=== PATIENT | female | born 1970 | race Caucasian/White ===

== ENCOUNTER 2017-04-05 14:41 | Inpatient (IN) | payer OTHER ==
[~2017-04-05] VITALS: Ht 162.6 cm; Wt 95.9 kg
[~2017-04-05 14:41] MED LIST: ACTOS30 MG PO; Aspirin Chewable PO; Augmentin PO; Dilaudid PO; GLIPIZIDE PO; Glucophage PO; JANUVIA100 MG PO; LANTUS 3 M100 UNITS/ SC; Lasix PO; NEURONTIN PO; PLAVIX75 MG PO; TEGretol PO; TORADOL10 MG PO; Tenormin PO; Xanax PO; Zestril,Prinivil PO; Zocor PO; Zoloft PO
[2017-04-05 15:20] VITALS: BP 169/63
[2017-04-05 15:30] LABS: HEMATOCRIT 31.6 % (36.0-46.0); MCH 27.4 PG (29.0-34.0); MCHC 30.7 G/DL (30.0-36.0); MCV 89.3 FL (83-99); MEAN PLAT.VOLUME 11.1 uM^3 (9.5-12.4); PLATELET COUNT 350 K/uL (156-360); RBC DIS.WIDTH-CV 12.7 % (11.8-14.6); RBC DIS.WIDTH-SD 41.2 % (39-53); RED BLOOD COUNT 3.54 M/uL (3.80-5.20); WHITE BLOOD COUNT 14.7 K/uL (4.1-10.2)
[2017-04-05 16:13] LABS: ANION GAP 8 MEQ/L (2-14); CHLORIDE 104 MEQ/L (99-109); GFR ESTIMATE (CALCULATED) 32 mL/min/; POTASSIUM 5.7 MEQ/L (3.7-5.4); SAMPLE HEMOLYSIS CHECK 0; SAMPLE ICTERIC CHECK 0; SAMPLE LIPEMIA CHECK 0; SODIUM 135 MEQ/L (136-147); UREA NITROGEN (BUN) 45 mg/dL (9-23)
[2017-04-05 16:14] LABS: GLUCOSE 400 mg/dL (70-99)
[2017-04-05 18:52] LABS: POINT-OF-CARE METER ID UU13113655; POINT-OF-CARE USER ID ENVKLS06
[2017-04-05 20:33] LABS: POINT-OF-CARE METER ID UU13113675
[2017-04-05 20:59] LABS: HEMATOCRIT 31.9 % (36.0-46.0); MCH 27.8 PG (29.0-34.0); MCHC 30.7 G/DL (30.0-36.0); MCV 90.4 FL (83-99); MEAN PLAT.VOLUME 10.7 uM^3 (9.5-12.4); PLATELET COUNT 370 K/uL (156-360); RBC DIS.WIDTH-CV 12.8 % (11.8-14.6); RBC DIS.WIDTH-SD 42.1 % (39-53); RED BLOOD COUNT 3.53 M/uL (3.80-5.20)
[2017-04-05 21:40] LABS: TROP-I INTERPRETATION NEGATIVE; TROPONIN-I 0.01 ng/mL (0.0-0.30)
[2017-04-05 21:52] LABS: POINT-OF-CARE METER ID UU13113675
[2017-04-05 22:00] VITALS: BP 129/75
[2017-04-05 22:00] LABS: ANION GAP 8 MEQ/L (2-14); CHLORIDE 106 MEQ/L (99-109); GFR ESTIMATE (CALCULATED) 28 mL/min/; GLUCOSE 318 mg/dL (70-99); POTASSIUM 7.2 MEQ/L (3.7-5.4); SAMPLE HEMOLYSIS CHECK 1; SAMPLE ICTERIC CHECK 0; SAMPLE LIPEMIA CHECK 0; SODIUM 133 MEQ/L (136-147); UREA NITROGEN (BUN) 44 mg/dL (9-23)
[2017-04-05 22:38] VITALS: BP 110/54
[2017-04-05 23:00] VITALS: BP 96/71
[2017-04-05 23:28] LABS: POTASSIUM 7.1 mEq/L (3.7-5.4)
[2017-04-05 23:35] LABS: POINT-OF-CARE METER ID UU13113803
[2017-04-05 23:52] LABS: METH RESISTANT S AUREUS PCR NEGATIVE (NEGATIVE)
[2017-04-05 23:54] LABS: PROBE CHECK PASS; SPECIMEN PROCESSING CONTROL PASS
[2017-04-05 23:54] LABS: INTER. NORMALIZED RATIO 1.1; PROTHROMBIN TIME 11.4 (9.2-11.2)
[2017-04-05 23:56] LABS: PTT > 150.0 (25-32)
[2017-04-06] VITALS (22 sets, daily range): BP systolic 84–152; BP diastolic 40–68
[2017-04-06 01:41] LABS: POINT-OF-CARE METER ID UU14162636
[2017-04-06 02:41] LABS: POINT-OF-CARE METER ID UU13113731
[2017-04-06 05:40] LABS: HEMATOCRIT 28.9 % (36.0-46.0); MCH 27.6 PG (29.0-34.0); MCHC 30.8 G/DL (30.0-36.0); MCV 89.8 FL (83-99); RBC DIS.WIDTH-CV 12.8 % (11.8-14.6); RBC DIS.WIDTH-SD 41.9 % (39-53); RED BLOOD COUNT 3.22 M/uL (3.80-5.20); WHITE BLOOD COUNT 12.6 K/uL (4.1-10.2)
[2017-04-06 05:59] LABS: TROP-I INTERPRETATION NEGATIVE; TROPONIN-I 0.03 ng/mL (0.0-0.30)
[2017-04-06 06:29] LABS: POINT-OF-CARE METER ID UU13113731
[2017-04-06 07:15] LABS: ANION GAP 8 MEQ/L (2-14); CHLORIDE 105 MEQ/L (99-109); GFR ESTIMATE (CALCULATED) 25 mL/min/; GLUCOSE 207 mg/dL (70-99); POTASSIUM 5.8 MEQ/L (3.7-5.4); SAMPLE HEMOLYSIS CHECK 0; SAMPLE ICTERIC CHECK 0; SAMPLE LIPEMIA CHECK 0; SODIUM 136 MEQ/L (136-147); UREA NITROGEN (BUN) 47 mg/dL (9-23)
[2017-04-06 08:06] LABS: PLAT.SUFFICIENCY ADEQUATE; PLATELET COUNT 282 K/uL (156-360)
[2017-04-06 14:18] LABS: UR CREATININE CONCENTRATION 123.4 MG/DL
[2017-04-06 18:56] LABS: ALKALINE PHOSPHATASE 64 IU/L (3-129); ANION GAP 11 MEQ/L (2-14); CHLORIDE 105 MEQ/L (99-109); GFR ESTIMATE (CALCULATED) 22 mL/min/; GLUCOSE 339 mg/dL (70-99); POTASSIUM 5.7 MEQ/L (3.7-5.4); SAMPLE HEMOLYSIS CHECK 0; SAMPLE ICTERIC CHECK 0; SAMPLE LIPEMIA CHECK 0; SODIUM 136 MEQ/L (136-147); TOTAL BILIRUBIN 0.4 MG/DL (0.0-1.0); UREA NITROGEN (BUN) 49 mg/dL (9-23)
[2017-04-06 22:49] LABS: POINT-OF-CARE METER ID UU14174217
[2017-04-07] VITALS (22 sets, daily range): BP systolic 114–173; BP diastolic 39–73
[2017-04-07 01:19] LABS: TROP-I INTERPRETATION POSITIVE; TROPONIN-I 0.72 ng/mL (0.0-0.30)
[2017-04-07 01:24] LABS: CHLORIDE 109 mEq/L (99-109); POTASSIUM 5.4 mEq/L (3.7-5.4); SODIUM 136 mEq/L (136-147)
[2017-04-07 01:26] LABS: GLUCOSE 302 mg/dL (70-99)
[2017-04-07 01:28] LABS: ANION GAP 11 MEQ/L (2-14)
[2017-04-07 01:30] LABS: GFR ESTIMATE (CALCULATED) 23 mL/min/
[2017-04-07 01:31] LABS: UREA NITROGEN (BUN) 47 mg/dL (9-23)
[2017-04-07 07:40] LABS: EOSINOPHIL (%) 2.8 % (0-5); EOSINOPHIL COUNT 0.5 K/uL (0-0.3); HEMATOCRIT 22.3 % (36.0-46.0); IMMATURE GRANULOCYTE COUNT 0.2 K/uL; INSTRUMENT ABS NEUTROPHIL CT 14.1 K/uL; LYMPHOCYTE COUNT 2.2 K/uL (1.0-2.8); MCH 28.2 PG (29.0-34.0); MCHC 30.9 G/DL (30.0-36.0); MEAN PLAT.VOLUME 11.2 uM^3 (9.5-12.4); MONOCYTE COUNT 1.9 K/uL (0-0.8); NEUTROPHIL (%) 74.5 % (45-76); NEUTROPHIL COUNT 14.1 K/uL (1.8-6.4); PLATELET COUNT 254 K/uL (156-360); RBC DIS.WIDTH-SD 43.2 % (39-53)
[2017-04-07 07:43] LABS: WHITE BLOOD COUNT 18.9 K/uL (4.1-10.2)
[2017-04-07 07:44] LABS: RED BLOOD COUNT 2.45 M/uL (3.80-5.20)
[2017-04-07 07:48] LABS: TROP-I INTERPRETATION POSITIVE; TROPONIN-I 1.19 ng/mL (0.0-0.30)
[2017-04-07 07:49] LABS: ANION GAP 9 MEQ/L (2-14); CHLORIDE 106 MEQ/L (99-109); GFR ESTIMATE (CALCULATED) 27 mL/min/; GLUCOSE 323 mg/dL (70-99); MAGNESIUM 1.4 mg/dl (1.3-2.7); SAMPLE HEMOLYSIS CHECK 0; SAMPLE ICTERIC CHECK 0; SAMPLE LIPEMIA CHECK 0; SODIUM 136 MEQ/L (136-147); UREA NITROGEN (BUN) 42 mg/dL (9-23)
[2017-04-07 11:33] LABS: POINT-OF-CARE METER ID UU13113731
[2017-04-07 15:06] LABS: HEMATOCRIT 25.4 % (36.0-46.0); MCHC 31.9 G/DL (30.0-36.0); MEAN PLAT.VOLUME 11.3 uM^3 (9.5-12.4); PLATELET COUNT 245 K/uL (156-360); RBC DIS.WIDTH-CV 13.3 % (11.8-14.6); RBC DIS.WIDTH-SD 43.9 % (39-53); RED BLOOD COUNT 2.79 M/uL (3.80-5.20); WHITE BLOOD COUNT 19.3 K/uL (4.1-10.2)
[2017-04-07 16:29] LABS: POINT-OF-CARE METER ID UU13113731
[2017-04-07 20:56] LABS: POINT-OF-CARE METER ID UU13113675
[2017-04-07 22:30] LABS: TROP-I INTERPRETATION POSITIVE; TROPONIN-I 3.46 ng/mL (0.0-0.30)
[2017-04-07 22:52] LABS: CK-MB 7.9 ng/mL (0.0-4.9)
[2017-04-07 22:54] LABS: CREATINE KINASE 1160 IU/L (1-294)
[2017-04-07 22:55] LABS: TOTAL CK 1160 IU/L (1-294)
[2017-04-08] VITALS (14 sets, daily range): BP systolic 119–173; BP diastolic 47–88
[2017-04-08 02:40] LABS: POINT-OF-CARE METER ID UU14174217
[2017-04-08 05:58] LABS: POINT-OF-CARE METER ID UU14174217
[2017-04-08 06:37] LABS: EOSINOPHIL (%) 1.4 % (0-5); EOSINOPHIL COUNT 0.2 K/uL (0-0.3); HEMATOCRIT 28.2 % (36.0-46.0); IMMATURE GRANULOCYTE (%) 0.3 % (0.0-0.7); IMMATURE GRANULOCYTE COUNT 0.1 K/uL; INSTRUMENT ABS NEUTROPHIL CT 12.7 K/uL; LYMPHOCYTE COUNT 1.6 K/uL (1.0-2.8); MCH 27.6 PG (29.0-34.0); MCHC 31.6 G/DL (30.0-36.0); MCV 87.6 FL (83-99); MEAN PLAT.VOLUME 11.4 uM^3 (9.5-12.4); MONOCYTE (%) 10.5 % (3-12); MONOCYTE COUNT 1.7 K/uL (0-0.8); NEUTROPHIL (%) 77.9 % (45-76); NEUTROPHIL COUNT 12.7 K/uL (1.8-6.4); PLATELET COUNT 210 K/uL (156-360); RBC DIS.WIDTH-CV 13.5 % (11.8-14.6); RBC DIS.WIDTH-SD 42.9 % (39-53); RED BLOOD COUNT 3.22 M/uL (3.80-5.20); WHITE BLOOD COUNT 16.4 K/uL (4.1-10.2)
[2017-04-08 06:57] LABS: ANION GAP 9 MEQ/L (2-14); CHLORIDE 106 MEQ/L (99-109); GLUCOSE 253 mg/dL (70-99); POTASSIUM 4.2 MEQ/L (3.7-5.4); SAMPLE HEMOLYSIS CHECK 0; SAMPLE ICTERIC CHECK 0; SAMPLE LIPEMIA CHECK 0; SODIUM 137 MEQ/L (136-147); UREA NITROGEN (BUN) 30 mg/dL (9-23)
[2017-04-08 06:58] LABS: GFR ESTIMATE (CALCULATED) 39 mL/min/; MAGNESIUM 1.7 mg/dl (1.3-2.7)
[2017-04-08 07:06] LABS: TROP-I INTERPRETATION POSITIVE
[2017-04-08 10:39] LABS: POINT-OF-CARE METER ID UU14162636
[2017-04-08 15:32] LABS: POINT-OF-CARE METER ID UU14162636
[2017-04-08 18:16] LABS: POINT-OF-CARE METER ID UU14162636
[2017-04-08 22:16] LABS: POINT-OF-CARE METER ID UU13113731
[2017-04-09] VITALS: BP 132/49
[2017-04-09 02:50] LABS: POINT-OF-CARE METER ID UU14174217
[2017-04-09 04:15] VITALS: BP 143/75
[2017-04-09 05:35] LABS: POINT-OF-CARE METER ID UU14174217
[2017-04-09 06:49] LABS: EOSINOPHIL COUNT 0.9 K/uL (0-0.3); HEMATOCRIT 24.5 % (36.0-46.0); IMMATURE GRANULOCYTE (%) 0.5 % (0.0-0.7); IMMATURE GRANULOCYTE COUNT 0.1 K/uL; INSTRUMENT ABS NEUTROPHIL CT 10.3 K/uL; LYMPHOCYTE COUNT 1.7 K/uL (1.0-2.8); MCH 29.1 PG (29.0-34.0); MCHC 32.7 G/DL (30.0-36.0); MCV 89.1 FL (83-99); MONOCYTE (%) 11.7 % (3-12); MONOCYTE COUNT 1.7 K/uL (0-0.8); NEUTROPHIL (%) 69.7 % (45-76); NEUTROPHIL COUNT 10.3 K/uL (1.8-6.4); PLATELET COUNT 215 K/uL (156-360); RBC DIS.WIDTH-CV 13.7 % (11.8-14.6); RBC DIS.WIDTH-SD 44.7 % (39-53); RED BLOOD COUNT 2.75 M/uL (3.80-5.20); WHITE BLOOD COUNT 14.7 K/uL (4.1-10.2)
[2017-04-09 07:14] LABS: ANION GAP 8 MEQ/L (2-14); CHLORIDE 107 MEQ/L (99-109); GFR ESTIMATE (CALCULATED) 56 mL/min/; GLUCOSE 196 mg/dL (70-99); MAGNESIUM 1.9 mg/dl (1.3-2.7); POTASSIUM 4.3 MEQ/L (3.7-5.4); SAMPLE HEMOLYSIS CHECK 0; SAMPLE ICTERIC CHECK 0; SAMPLE LIPEMIA CHECK 0; SODIUM 136 MEQ/L (136-147); UREA NITROGEN (BUN) 19 mg/dL (9-23)
[2017-04-09 09:34] VITALS: BP 130/65
[2017-04-09 13:12] VITALS: BP 174/71
[2017-04-09 16:27] VITALS: BP 137/61
[2017-04-09 23:26] VITALS: BP 145/63
[2017-04-10 03:59] VITALS: BP 140/65
[2017-04-10 07:30] LABS: BASOPHIL COUNT 0.1 K/uL (0-0.1); EOSINOPHIL (%) 10.5 % (0-5); EOSINOPHIL COUNT 1.4 K/uL (0-0.3); HEMATOCRIT 24.4 % (36.0-46.0); IMMATURE GRANULOCYTE (%) 0.4 % (0.0-0.7); IMMATURE GRANULOCYTE COUNT 0.1 K/uL; INSTRUMENT ABS NEUTROPHIL CT 8.2 K/uL; LYMPHOCYTE COUNT 2.6 K/uL (1.0-2.8); MCH 28.6 PG (29.0-34.0); MCHC 31.6 G/DL (30.0-36.0); MCV 90.7 FL (83-99); MONOCYTE (%) 10.1 % (3-12); MONOCYTE COUNT 1.4 K/uL (0-0.8); NEUTROPHIL (%) 59.5 % (45-76); NEUTROPHIL COUNT 8.2 K/uL (1.8-6.4); NRBC (%) 0.3 /100 WBC (0-0); PLATELET COUNT 240 K/uL (156-360); RBC DIS.WIDTH-CV 13.5 % (11.8-14.6); RBC DIS.WIDTH-SD 44.8 % (39-53); RED BLOOD COUNT 2.69 M/uL (3.80-5.20); WHITE BLOOD COUNT 13.7 K/uL (4.1-10.2)
[2017-04-10 07:57] LABS: ANION GAP 8 MEQ/L (2-14); CHLORIDE 105 MEQ/L (99-109); GFR ESTIMATE (CALCULATED) 51 mL/min/; GLUCOSE 231 mg/dL (70-99); MAGNESIUM 1.9 mg/dl (1.3-2.7); POTASSIUM 4.5 MEQ/L (3.7-5.4); SAMPLE HEMOLYSIS CHECK 0; SAMPLE ICTERIC CHECK 0; SAMPLE LIPEMIA CHECK 0; SODIUM 134 MEQ/L (136-147); UREA NITROGEN (BUN) 21 mg/dL (9-23)
[2017-04-10 08:27] VITALS: BP 152/65
[2017-04-10 11:24] VITALS: BP 161/70
[2017-04-10 16:56] VITALS: BP 153/68
[2017-04-10 18:58] VITALS: BP 172/69
[2017-04-10 21:01] LABS: POINT-OF-CARE METER ID UU14174216
[2017-04-10 22:33] VITALS: BP 138/62
[2017-04-11] VITALS (7 sets, daily range): BP systolic 139–179; BP diastolic 62–83
[2017-04-11 06:12] LABS: BASOPHIL COUNT 0.1 K/uL (0-0.1); EOSINOPHIL (%) 3.5 % (0-5); EOSINOPHIL COUNT 0.4 K/uL (0-0.3); HEMATOCRIT 24.3 % (36.0-46.0); IMMATURE GRANULOCYTE (%) 0.6 % (0.0-0.7); IMMATURE GRANULOCYTE COUNT 0.1 K/uL; INSTRUMENT ABS NEUTROPHIL CT 8.6 K/uL; LYMPHOCYTE COUNT 1.5 K/uL (1.0-2.8); MCH 28.1 PG (29.0-34.0); MCHC 31.7 G/DL (30.0-36.0); MCV 88.7 FL (83-99); MEAN PLAT.VOLUME 11.7 uM^3 (9.5-12.4); MONOCYTE (%) 14.5 % (3-12); MONOCYTE COUNT 1.8 K/uL (0-0.8); NEUTROPHIL (%) 69.2 % (45-76); NEUTROPHIL COUNT 8.6 K/uL (1.8-6.4); NRBC (%) 0.4 /100 WBC (0-0); PLATELET COUNT 254 K/uL (156-360); RBC DIS.WIDTH-CV 13.3 % (11.8-14.6); RBC DIS.WIDTH-SD 43.4 % (39-53); RED BLOOD COUNT 2.74 M/uL (3.80-5.20); WHITE BLOOD COUNT 12.5 K/uL (4.1-10.2)
[2017-04-11 06:37] LABS: ANION GAP 11 MEQ/L (2-14); CHLORIDE 104 MEQ/L (99-109); GFR ESTIMATE (CALCULATED) 56 mL/min/; GLUCOSE 215 mg/dL (70-99); MAGNESIUM 1.8 mg/dl (1.3-2.7); POTASSIUM 4.5 MEQ/L (3.7-5.4); SAMPLE HEMOLYSIS CHECK 0; SAMPLE ICTERIC CHECK 0; SAMPLE LIPEMIA CHECK 0; SODIUM 134 MEQ/L (136-147); UREA NITROGEN (BUN) 20 mg/dL (9-23)
[2017-04-11 10:12] LABS: TROP-I INTERPRETATION POSITIVE; TROPONIN-I 0.85 ng/mL (0.0-0.30)
[2017-04-11 11:26] LABS: POINT-OF-CARE METER ID UU13113781
[2017-04-11 14:42] LABS: POINT-OF-CARE METER ID UU13113675
[2017-04-11 16:59] LABS: HEMATOCRIT 25.1 % (36.0-46.0); MCH 28.3 PG (29.0-34.0); MCHC 31.5 G/DL (30.0-36.0); MEAN PLAT.VOLUME 11.7 uM^3 (9.5-12.4); NRBC (%) 0.3 /100 WBC (0-0); PLATELET COUNT 278 K/uL (156-360); RBC DIS.WIDTH-CV 13.2 % (11.8-14.6); RBC DIS.WIDTH-SD 43.7 % (39-53); RED BLOOD COUNT 2.79 M/uL (3.80-5.20); WHITE BLOOD COUNT 12.6 K/uL (4.1-10.2)
[2017-04-11 17:22] LABS: TROP-I INTERPRETATION INDETERMINATE
[2017-04-11 17:28] LABS: EOSINOPHIL (%) 1.2 % (0-5); EOSINOPHIL COUNT 0.2 K/uL (0-0.3); IMMATURE GRANULOCYTE (%) 0.8 % (0.0-0.7); IMMATURE GRANULOCYTE COUNT 0.1 K/uL; INSTRUMENT ABS NEUTROPHIL CT 9.2 K/uL; LYMPHOCYTE COUNT 1.2 K/uL (1.0-2.8); MONOCYTE (%) 14.9 % (3-12); MONOCYTE COUNT 1.9 K/uL (0-0.8); NEUTROPHIL (%) 73.2 % (45-76); NEUTROPHIL COUNT 9.2 K/uL (1.8-6.4)
[2017-04-11 19:50] LABS: TROP-I INTERPRETATION POSITIVE; TROPONIN-I 0.64 ng/mL (0.0-0.30)
[2017-04-12 03:00] VITALS: BP 145/67
[2017-04-12 06:42] LABS: TROP-I INTERPRETATION INDETERMINATE; TROPONIN-I 0.57 ng/mL (0.0-0.30)
[2017-04-12 06:48] LABS: BASOPHIL COUNT 0.1 K/uL (0-0.1); EOSINOPHIL (%) 3.4 % (0-5); EOSINOPHIL COUNT 0.5 K/uL (0-0.3); HEMATOCRIT 24.3 % (36.0-46.0); IMMATURE GRANULOCYTE (%) 1.1 % (0.0-0.7); IMMATURE GRANULOCYTE COUNT 0.2 K/uL; LYMPHOCYTE COUNT 1.5 K/uL (1.0-2.8); MCH 27.9 PG (29.0-34.0); MCHC 31.3 G/DL (30.0-36.0); MCV 89.3 FL (83-99); MEAN PLAT.VOLUME 12.1 uM^3 (9.5-12.4); MONOCYTE (%) 14.5 % (3-12); MONOCYTE COUNT 2.1 K/uL (0-0.8); NEUTROPHIL (%) 69.9 % (45-76); NRBC (%) 0.4 /100 WBC (0-0); PLATELET COUNT 303 K/uL (156-360); RBC DIS.WIDTH-CV 13.3 % (11.8-14.6); RBC DIS.WIDTH-SD 43.8 % (39-53); RED BLOOD COUNT 2.72 M/uL (3.80-5.20); WHITE BLOOD COUNT 14.3 K/uL (4.1-10.2)
[2017-04-12 07:11] LABS: ANION GAP 10 MEQ/L (2-14); CHLORIDE 104 MEQ/L (99-109); GFR ESTIMATE (CALCULATED) > 59 mL/min/; GLUCOSE 278 mg/dL (70-99); MAGNESIUM 1.6 mg/dl (1.3-2.7); POTASSIUM 4.3 MEQ/L (3.7-5.4); SAMPLE HEMOLYSIS CHECK 0; SAMPLE ICTERIC CHECK 0; SAMPLE LIPEMIA CHECK 0; SODIUM 134 MEQ/L (136-147); UREA NITROGEN (BUN) 21 mg/dL (9-23)
[2017-04-12 08:01] LABS: POINT-OF-CARE METER ID UU14174216
[2017-04-12 08:12] VITALS: BP 144/68
[2017-04-12] MEDS ORDERED: GLIPIZIDE10 MG PO (09:29)
[2017-04-12] MEDS ORDERED: NEURONTIN300 MG PO (09:29)
[2017-04-12] MEDS ORDERED: LASIX20 MG PO (09:30)
[2017-04-12] MEDS ORDERED: TEGRETOL200 MG PO (09:30)
[2017-04-12] MEDS ORDERED: GLUCOPHAGE1000 MG PO (09:31)
[2017-04-12] MEDS ORDERED: TENORMIN50 MG PO (09:32)
[2017-04-12] MEDS ORDERED: ZOCOR40 MG PO (09:32)
[2017-04-12] MEDS ORDERED: BAYER CHEWABLE81 MG PO (09:33)
[2017-04-12 11:50] VITALS: BP 166/74
[2017-04-12 11:55] LABS: POINT-OF-CARE METER ID UU13113781
[2017-04-12 16:31] VITALS: BP 147/75
[2017-04-12 20:21] VITALS: BP 168/72
[2017-04-13] VITALS (9 sets, daily range): BP systolic 85–199; BP diastolic 47–81
[2017-04-13 06:27] LABS: EOSINOPHIL (%) 2.1 % (0-5); EOSINOPHIL COUNT 0.4 K/uL (0-0.3); HEMATOCRIT 24.1 % (36.0-46.0); IMMATURE GRANULOCYTE (%) 1.2 % (0.0-0.7); IMMATURE GRANULOCYTE COUNT 0.2 K/uL; INSTRUMENT ABS NEUTROPHIL CT 12.1 K/uL; LYMPHOCYTE COUNT 1.7 K/uL (1.0-2.8); MCH 28.6 PG (29.0-34.0); MCV 89.6 FL (83-99); MEAN PLAT.VOLUME 12.5 uM^3 (9.5-12.4); MONOCYTE (%) 11.9 % (3-12); MONOCYTE COUNT 1.9 K/uL (0-0.8); NEUTROPHIL (%) 74.2 % (45-76); NEUTROPHIL COUNT 12.1 K/uL (1.8-6.4); NRBC (%) 0.4 /100 WBC (0-0); PLATELET COUNT 337 K/uL (156-360); RBC DIS.WIDTH-CV 13.6 % (11.8-14.6); RBC DIS.WIDTH-SD 44.3 % (39-53); RED BLOOD COUNT 2.69 M/uL (3.80-5.20); WHITE BLOOD COUNT 16.4 K/uL (4.1-10.2)
[2017-04-13 06:46] LABS: ANION GAP 9 MEQ/L (2-14); CHLORIDE 105 MEQ/L (99-109); GFR ESTIMATE (CALCULATED) > 59 mL/min/; GLUCOSE 233 mg/dL (70-99); MAGNESIUM 1.5 mg/dl (1.3-2.7); POTASSIUM 4.1 MEQ/L (3.7-5.4); SAMPLE HEMOLYSIS CHECK 0; SAMPLE ICTERIC CHECK 0; SAMPLE LIPEMIA CHECK 0; SODIUM 135 MEQ/L (136-147); UREA NITROGEN (BUN) 18 mg/dL (9-23)
[2017-04-13 11:07] LABS: POINT-OF-CARE METER ID UU14174216
[2017-04-13 18:47] LABS: HEMATOCRIT 25.5 % (36.0-46.0); MCV 88.5 FL (83-99)
[2017-04-13 21:26] LABS: POINT-OF-CARE METER ID UU14174216
[2017-04-14] VITALS (23 sets, daily range): BP systolic 86–176; BP diastolic 43–75
[2017-04-14 07:06] LABS: HEMATOCRIT 22.7 % (36.0-46.0); MCH 28.6 PG (29.0-34.0); MCV 86.6 FL (83-99); NRBC (%) 2.6 /100 WBC (0-0); PLATELET COUNT 307 K/uL (156-360); RBC DIS.WIDTH-CV 13.6 % (11.8-14.6); RBC DIS.WIDTH-SD 42.7 % (39-53); RED BLOOD COUNT 2.62 M/uL (3.80-5.20); WHITE BLOOD COUNT 18.4 K/uL (4.1-10.2)
[2017-04-14 07:26] LABS: ANION GAP 9 MEQ/L (2-14); CHLORIDE 104 MEQ/L (99-109); GLUCOSE 338 mg/dL (70-99); MAGNESIUM 1.6 mg/dl (1.3-2.7); POTASSIUM 4.4 MEQ/L (3.7-5.4); SAMPLE HEMOLYSIS CHECK 0; SAMPLE ICTERIC CHECK 0; SAMPLE LIPEMIA CHECK 0; SODIUM 134 MEQ/L (136-147); UREA NITROGEN (BUN) 25 mg/dL (9-23)
[2017-04-14 07:28] LABS: GFR ESTIMATE (CALCULATED) 43 mL/min/
[2017-04-14 15:54] LABS: METH RESISTANT S AUREUS PCR NEGATIVE (NEGATIVE); PROBE CHECK PASS; SPECIMEN PROCESSING CONTROL PASS
[2017-04-14 16:18] LABS: ADD MIUA? YES; BILIRUBIN NEGATIVE; BLOOD LARGE; KETONES NEGATIVE; LEUKOCYTES NEGATIVE; NITRITE NEGATIVE; PROTEIN (STRIP) 100; SPECIFIC GRAVITY 1.014 (1.000-1.030); UROBILINOGEN 0.2 MG/DL (0.2-1.0)
[2017-04-14 16:22] LABS: COLOR YELLOW ((YELLOW)); GLUCOSE (STRIP) 500
[2017-04-14 16:52] LABS: EOSINOPHIL (%) 0.8 % (0-5); EOSINOPHIL COUNT 0.2 K/uL (0-0.3); HEMATOCRIT 30.5 % (36.0-46.0); IMMATURE GRANULOCYTE (%) 1.6 % (0.0-0.7); IMMATURE GRANULOCYTE COUNT 0.3 K/uL; INSTRUMENT ABS NEUTROPHIL CT 16.8 K/uL; LYMPHOCYTE COUNT 1.8 K/uL (1.0-2.8); MCH 28.9 PG (29.0-34.0); MCHC 33.4 G/DL (30.0-36.0); MCV 86.4 FL (83-99); MEAN PLAT.VOLUME 12.3 uM^3 (9.5-12.4); MONOCYTE (%) 7.1 % (3-12); MONOCYTE COUNT 1.5 K/uL (0-0.8); NEUTROPHIL (%) 81.4 % (45-76); NEUTROPHIL COUNT 16.8 K/uL (1.8-6.4); NRBC (%) 2.2 /100 WBC (0-0); PLATELET COUNT 312 K/uL (156-360); RBC DIS.WIDTH-CV 14.2 % (11.8-14.6); RBC DIS.WIDTH-SD 44.3 % (39-53); RED BLOOD COUNT 3.53 M/uL (3.80-5.20); WHITE BLOOD COUNT 20.7 K/uL (4.1-10.2)
[2017-04-14 16:57] LABS: ANION GAP 9 MEQ/L (2-14); CHLORIDE 105 MEQ/L (99-109); MAGNESIUM 1.5 mg/dl (1.3-2.7); POTASSIUM 4.2 MEQ/L (3.7-5.4); SAMPLE HEMOLYSIS CHECK 0; SAMPLE ICTERIC CHECK 0; SAMPLE LIPEMIA CHECK 0; SODIUM 135 MEQ/L (136-147)
[2017-04-14 16:58] LABS: INTER. NORMALIZED RATIO 1.1; PTT 26.6 (25-32)
[2017-04-14 16:58] LABS: BACTERIA NONE SEEN /HPF; EPITHELIAL CELLS NONE SEEN /HPF; MUCUS TRACE /LPF; RED BLOOD CELLS 0-5 /HPF (0-5); UCUL ADDED? NO; WHITE BLOOD CELLS 0-5 /HPF (0-5)
[2017-04-14 17:03] LABS: GFR ESTIMATE (CALCULATED) 56 mL/min/; GLUCOSE 266 mg/dL (70-99); UREA NITROGEN (BUN) 24 mg/dL (9-23)
[2017-04-14 18:04] LABS: POINT-OF-CARE USER ID 612031313
[2017-04-14 18:39] LABS: ANISOCYTOSIS 1+; BAND NEUTROPHILS 15.5 % (0-8.0); HYPOCHROMASIA 1+; NUCLEATED RBC'S 0.5; POLYCHROMASIA 1+
[2017-04-14 23:40] LABS: POINT-OF-CARE METER ID UU13113803
[2017-04-14 23:49] LABS: INTER. NORMALIZED RATIO 1.1; PROTHROMBIN TIME 10.9 (9.2-11.2); PTT 27.6 (25-32)
[2017-04-15] VITALS (22 sets, daily range): BP systolic 95–166; BP diastolic 44–77
[2017-04-15 00:20] LABS: HEMATOCRIT 26.6 % (36.0-46.0); MCV 84.7 FL (83-99)
[2017-04-15 09:31] LABS: POINT-OF-CARE METER ID UU14162636
[2017-04-15 11:08] LABS: BASOPHIL COUNT 0.1 K/uL (0-0.1); EOSINOPHIL (%) 2.7 % (0-5); EOSINOPHIL COUNT 0.6 K/uL (0-0.3); HEMATOCRIT 26.9 % (36.0-46.0); IMMATURE GRANULOCYTE (%) 1.9 % (0.0-0.7); IMMATURE GRANULOCYTE COUNT 0.5 K/uL; INSTRUMENT ABS NEUTROPHIL CT 18.4 K/uL; LYMPHOCYTE COUNT 2.2 K/uL (1.0-2.8); MCH 29.4 PG (29.0-34.0); MCHC 33.1 G/DL (30.0-36.0); MEAN PLAT.VOLUME 12.4 uM^3 (9.5-12.4); MONOCYTE (%) 5.7 % (3-12); MONOCYTE COUNT 1.3 K/uL (0-0.8); NEUTROPHIL (%) 79.7 % (45-76); NEUTROPHIL COUNT 18.4 K/uL (1.8-6.4); PLATELET COUNT 297 K/uL (156-360); RBC DIS.WIDTH-SD 48.5 % (39-53); RED BLOOD COUNT 3.03 M/uL (3.80-5.20); WHITE BLOOD COUNT 23.1 K/uL (4.1-10.2)
[2017-04-15 11:09] LABS: MCV 88.8 FL (83-99)
[2017-04-15 11:34] LABS: ANION GAP 10 MEQ/L (2-14); CHLORIDE 104 MEQ/L (99-109); GFR ESTIMATE (CALCULATED) > 59 mL/min/; GLUCOSE 259 mg/dL (70-99); MAGNESIUM 1.4 mg/dl (1.3-2.7); POTASSIUM 3.8 MEQ/L (3.7-5.4); SAMPLE HEMOLYSIS CHECK 0; SAMPLE ICTERIC CHECK 0; SAMPLE LIPEMIA CHECK 0; SODIUM 134 MEQ/L (136-147); UREA NITROGEN (BUN) 16 mg/dL (9-23)
[2017-04-15 12:12] LABS: POINT-OF-CARE METER ID UU14162636
[2017-04-15 12:59] LABS: GLOBULINS 2.6 G/DL (2.3-3.5)
[2017-04-15 15:09] LABS: HEMATOCRIT 24.6 % (36.0-46.0); MCH 30.2 PG (29.0-34.0); MCHC 34.6 G/DL (30.0-36.0); MCV 87.5 FL (83-99); MEAN PLAT.VOLUME 12.2 uM^3 (9.5-12.4); NRBC (%) 0.8 /100 WBC (0-0); PLATELET COUNT 303 K/uL (156-360); RBC DIS.WIDTH-CV 14.9 % (11.8-14.6); RBC DIS.WIDTH-SD 47.3 % (39-53); RED BLOOD COUNT 2.81 M/uL (3.80-5.20); WHITE BLOOD COUNT 22.1 K/uL (4.1-10.2)
[2017-04-15 17:31] LABS: POINT-OF-CARE METER ID UU14162636
[2017-04-15 18:25] LABS: HEMATOCRIT 26.1 % (36.0-46.0); MCH 28.6 PG (29.0-34.0); MCV 86.7 FL (83-99); NRBC (%) 0.8 /100 WBC (0-0); PLATELET COUNT 310 K/uL (156-360); RBC DIS.WIDTH-CV 14.6 % (11.8-14.6); RBC DIS.WIDTH-SD 45.8 % (39-53); RED BLOOD COUNT 3.01 M/uL (3.80-5.20); WHITE BLOOD COUNT 22.7 K/uL (4.1-10.2)
[2017-04-15 22:47] LABS: POINT-OF-CARE METER ID UU13113803; POINT-OF-CARE USER ID RADDRS44
[2017-04-16] VITALS (13 sets, daily range): BP systolic 0–159; BP diastolic 0–83
[2017-04-16 00:57] LABS: HEMATOCRIT 26.3 % (36.0-46.0); MCH 29.2 PG (29.0-34.0); MCHC 33.5 G/DL (30.0-36.0); MCV 87.4 FL (83-99); MEAN PLAT.VOLUME 12.3 uM^3 (9.5-12.4); NRBC (%) 0.6 /100 WBC (0-0); PLATELET COUNT 321 K/uL (156-360); RBC DIS.WIDTH-CV 14.7 % (11.8-14.6); RBC DIS.WIDTH-SD 47.2 % (39-53); RED BLOOD COUNT 3.01 M/uL (3.80-5.20); WHITE BLOOD COUNT 25.4 K/uL (4.1-10.2)
[2017-04-16 11:20] LABS: POINT-OF-CARE METER ID UU13113803
[2017-04-16 12:57] LABS: BASOPHIL COUNT 0.1 K/uL (0-0.1); EOSINOPHIL (%) 4.2 % (0-5); HEMATOCRIT 25.7 % (36.0-46.0); IMMATURE GRANULOCYTE (%) 1.4 % (0.0-0.7); IMMATURE GRANULOCYTE COUNT 0.3 K/uL; INSTRUMENT ABS NEUTROPHIL CT 18.2 K/uL; LYMPHOCYTE COUNT 2.4 K/uL (1.0-2.8); MCH 29.1 PG (29.0-34.0); MCHC 32.3 G/DL (30.0-36.0); MCV 90.2 FL (83-99); MEAN PLAT.VOLUME 12.6 uM^3 (9.5-12.4); MONOCYTE (%) 5.8 % (3-12); MONOCYTE COUNT 1.4 K/uL (0-0.8); NEUTROPHIL (%) 78.2 % (45-76); NEUTROPHIL COUNT 18.2 K/uL (1.8-6.4); NRBC (%) 0.6 /100 WBC (0-0); PLATELET COUNT 318 K/uL (156-360); RBC DIS.WIDTH-CV 14.5 % (11.8-14.6); RBC DIS.WIDTH-SD 47.5 % (39-53); RED BLOOD COUNT 2.85 M/uL (3.80-5.20); WHITE BLOOD COUNT 23.3 K/uL (4.1-10.2)
[2017-04-16 13:11] LABS: HEMATOCRIT 23.6 % (36.0-46.0); MCH 28.9 PG (29.0-34.0); MCHC 32.6 G/DL (30.0-36.0); MCV 88.7 FL (83-99); MEAN PLAT.VOLUME 12.2 uM^3 (9.5-12.4); NRBC (%) 0.3 /100 WBC (0-0); PLATELET COUNT 306 K/uL (156-360); RBC DIS.WIDTH-CV 14.7 % (11.8-14.6); RBC DIS.WIDTH-SD 47.2 % (39-53); RED BLOOD COUNT 2.66 M/uL (3.80-5.20); WHITE BLOOD COUNT 23.9 K/uL (4.1-10.2)
[2017-04-16 14:06] LABS: ANION GAP 8 MEQ/L (2-14); CHLORIDE 105 MEQ/L (99-109); GFR ESTIMATE (CALCULATED) > 59 mL/min/; GLUCOSE 221 mg/dL (70-99); SAMPLE HEMOLYSIS CHECK 0; SAMPLE ICTERIC CHECK 0; SAMPLE LIPEMIA CHECK 0; SODIUM 135 MEQ/L (136-147); UREA NITROGEN (BUN) 13 mg/dL (9-23)
[2017-04-16 14:07] LABS: MAGNESIUM 1.7 mg/dl (1.3-2.7)
[2017-04-16 17:32] LABS: POINT-OF-CARE METER ID UU14174217
[2017-04-16 18:04] LABS: HEMATOCRIT 26.4 % (36.0-46.0); MCH 28.6 PG (29.0-34.0); MCHC 32.6 G/DL (30.0-36.0); MCV 87.7 FL (83-99); MEAN PLAT.VOLUME 12.5 uM^3 (9.5-12.4); NRBC (%) 0.4 /100 WBC (0-0); PLATELET COUNT 333 K/uL (156-360); RBC DIS.WIDTH-CV 14.6 % (11.8-14.6); RED BLOOD COUNT 3.01 M/uL (3.80-5.20); WHITE BLOOD COUNT 25.7 K/uL (4.1-10.2)
[2017-04-16 22:22] LABS: POINT-OF-CARE METER ID UU14174217
[2017-04-17] VITALS (11 sets, daily range): BP systolic 106–163; BP diastolic 49–91
[2017-04-17 01:46] LABS: HEMATOCRIT 24.9 % (36.0-46.0); MCH 29.2 PG (29.0-34.0); MCHC 32.9 G/DL (30.0-36.0); MCV 88.6 FL (83-99); MEAN PLAT.VOLUME 12.4 uM^3 (9.5-12.4); NRBC (%) 0.5 /100 WBC (0-0); PLATELET COUNT 349 K/uL (156-360); RBC DIS.WIDTH-CV 14.5 % (11.8-14.6); RBC DIS.WIDTH-SD 46.3 % (39-53); RED BLOOD COUNT 2.81 M/uL (3.80-5.20); WHITE BLOOD COUNT 24.4 K/uL (4.1-10.2)
[2017-04-17 05:26] LABS: BASOPHIL COUNT 0.1 K/uL (0-0.1); EOSINOPHIL (%) 3.5 % (0-5); EOSINOPHIL COUNT 0.8 K/uL (0-0.3); HEMATOCRIT 23.3 % (36.0-46.0); IMMATURE GRANULOCYTE (%) 1.5 % (0.0-0.7); IMMATURE GRANULOCYTE COUNT 0.4 K/uL; INSTRUMENT ABS NEUTROPHIL CT 17.3 K/uL; LYMPHOCYTE COUNT 2.4 K/uL (1.0-2.8); MCH 28.9 PG (29.0-34.0); MCHC 32.6 G/DL (30.0-36.0); MCV 88.6 FL (83-99); MEAN PLAT.VOLUME 12.1 uM^3 (9.5-12.4); MONOCYTE COUNT 1.8 K/uL (0-0.8); NEUTROPHIL (%) 76.4 % (45-76); NEUTROPHIL COUNT 17.3 K/uL (1.8-6.4); NRBC (%) 0.5 /100 WBC (0-0); PLATELET COUNT 336 K/uL (156-360); RBC DIS.WIDTH-CV 14.6 % (11.8-14.6); RBC DIS.WIDTH-SD 46.9 % (39-53); RED BLOOD COUNT 2.63 M/uL (3.80-5.20); WHITE BLOOD COUNT 22.6 K/uL (4.1-10.2)
[2017-04-17 05:51] LABS: ANION GAP 7 MEQ/L (2-14); CHLORIDE 103 MEQ/L (99-109); GFR ESTIMATE (CALCULATED) > 59 mL/min/; GLUCOSE 252 mg/dL (70-99); MAGNESIUM 1.5 mg/dl (1.3-2.7); POTASSIUM 4.1 MEQ/L (3.7-5.4); SAMPLE HEMOLYSIS CHECK 0; SAMPLE ICTERIC CHECK 0; SAMPLE LIPEMIA CHECK 0; SODIUM 135 MEQ/L (136-147); UREA NITROGEN (BUN) 11 mg/dL (9-23)
[2017-04-17 12:20] LABS: POINT-OF-CARE METER ID UU14174217
[2017-04-17 12:57] LABS: HEMATOCRIT 21.1 % (36.0-46.0); MCH 29.4 PG (29.0-34.0); MCHC 33.2 G/DL (30.0-36.0); MCV 88.7 FL (83-99); MEAN PLAT.VOLUME 12.9 uM^3 (9.5-12.4); NRBC (%) 0.2 /100 WBC (0-0); PLATELET COUNT 311 K/uL (156-360); RBC DIS.WIDTH-CV 14.5 % (11.8-14.6); RBC DIS.WIDTH-SD 46.6 % (39-53); RED BLOOD COUNT 2.38 M/uL (3.80-5.20); WHITE BLOOD COUNT 20.9 K/uL (4.1-10.2)
[2017-04-17 17:21] LABS: POINT-OF-CARE METER ID UU13113803
[2017-04-17 18:47] LABS: HEMATOCRIT 23.4 % (36.0-46.0); MCH 28.7 PG (29.0-34.0); MCHC 32.5 G/DL (30.0-36.0); MCV 88.3 FL (83-99); MEAN PLAT.VOLUME 12.6 uM^3 (9.5-12.4); NRBC (%) 0.4 /100 WBC (0-0); PLATELET COUNT 349 K/uL (156-360); RBC DIS.WIDTH-CV 14.6 % (11.8-14.6); RBC DIS.WIDTH-SD 46.8 % (39-53); RED BLOOD COUNT 2.65 M/uL (3.80-5.20); WHITE BLOOD COUNT 20.6 K/uL (4.1-10.2)
[2017-04-17 22:33] LABS: POINT-OF-CARE METER ID UU14174216
[2017-04-17 23:58] LABS: HEMATOCRIT 23.2 % (36.0-46.0); MCH 29.3 PG (29.0-34.0); MCHC 32.8 G/DL (30.0-36.0); MCV 89.6 FL (83-99); MEAN PLAT.VOLUME 12.7 uM^3 (9.5-12.4); NRBC (%) 0.2 /100 WBC (0-0); PLATELET COUNT 345 K/uL (156-360); RBC DIS.WIDTH-CV 14.5 % (11.8-14.6); RBC DIS.WIDTH-SD 47.1 % (39-53); RED BLOOD COUNT 2.59 M/uL (3.80-5.20)
[2017-04-18] VITALS (11 sets, daily range): BP systolic 123–147; BP diastolic 58–74
[2017-04-18 08:50] LABS: BASOPHIL COUNT 0.1 K/uL (0-0.1); EOSINOPHIL (%) 2.9 % (0-5); EOSINOPHIL COUNT 0.6 K/uL (0-0.3); HEMATOCRIT 27.5 % (36.0-46.0); IMMATURE GRANULOCYTE (%) 1.4 % (0.0-0.7); IMMATURE GRANULOCYTE COUNT 0.3 K/uL; INSTRUMENT ABS NEUTROPHIL CT 16.7 K/uL; LYMPHOCYTE COUNT 2.1 K/uL (1.0-2.8); MCH 29.4 PG (29.0-34.0); MCHC 33.5 G/DL (30.0-36.0); MCV 87.9 FL (83-99); MEAN PLAT.VOLUME 12.6 uM^3 (9.5-12.4); MONOCYTE COUNT 1.5 K/uL (0-0.8); NEUTROPHIL (%) 78.4 % (45-76); NEUTROPHIL COUNT 16.7 K/uL (1.8-6.4); NRBC (%) 0.2 /100 WBC (0-0); PLATELET COUNT 330 K/uL (156-360); RBC DIS.WIDTH-CV 14.6 % (11.8-14.6); RBC DIS.WIDTH-SD 46.9 % (39-53); WHITE BLOOD COUNT 21.3 K/uL (4.1-10.2)
[2017-04-18 08:58] LABS: RED BLOOD COUNT 3.13 M/uL (3.80-5.20)
[2017-04-18 09:14] LABS: ANION GAP 9 MEQ/L (2-14); CHLORIDE 102 MEQ/L (99-109); GFR ESTIMATE (CALCULATED) > 59 mL/min/; GLUCOSE 262 mg/dL (70-99); MAGNESIUM 1.5 mg/dl (1.3-2.7); POTASSIUM 4.4 MEQ/L (3.7-5.4); SAMPLE HEMOLYSIS CHECK 0; SAMPLE ICTERIC CHECK 0; SAMPLE LIPEMIA CHECK 0; SODIUM 134 MEQ/L (136-147); UREA NITROGEN (BUN) 10 mg/dL (9-23)
[2017-04-18 10:59] LABS: POINT-OF-CARE METER ID UU14174216
[2017-04-18 11:31] LABS: SERUM GEL NO. 64-3
[2017-04-18 12:43] LABS: HEMATOCRIT 27.8 % (36.0-46.0); MCHC 33.1 G/DL (30.0-36.0); MCV 87.7 FL (83-99); MEAN PLAT.VOLUME 12.5 uM^3 (9.5-12.4); NRBC (%) 0.2 /100 WBC (0-0); PLATELET COUNT 345 K/uL (156-360); RBC DIS.WIDTH-CV 14.7 % (11.8-14.6); RBC DIS.WIDTH-SD 47.8 % (39-53); RED BLOOD COUNT 3.17 M/uL (3.80-5.20); WHITE BLOOD COUNT 19.6 K/uL (4.1-10.2)
[2017-04-18 13:28] LABS: ALBUMIN 1.79 G/DL (3.6-4.9); ALBUMIN PERCENT 38.1 %; ALPHA-1 GLOBULIN 0.42 G/DL (0.15-0.40); ALPHA-1 PERCENT 8.9 %; ALPHA-2 PERCENT 19.1 %; BETA PERCENT 19.9 %
[2017-04-18 20:00] LABS: HEMATOCRIT 27.9 % (36.0-46.0); MCH 28.5 PG (29.0-34.0); MCHC 32.3 G/DL (30.0-36.0); MCV 88.3 FL (83-99); MEAN PLAT.VOLUME 12.5 uM^3 (9.5-12.4); NRBC (%) 0.2 /100 WBC (0-0); PLATELET COUNT 360 K/uL (156-360); RBC DIS.WIDTH-CV 14.8 % (11.8-14.6); RBC DIS.WIDTH-SD 48.4 % (39-53); RED BLOOD COUNT 3.16 M/uL (3.80-5.20); WHITE BLOOD COUNT 18.4 K/uL (4.1-10.2)
[2017-04-19] VITALS: BP 134/75
[2017-04-19 00:53] LABS: MCH 28.9 PG (29.0-34.0); MCHC 32.7 G/DL (30.0-36.0); MCV 88.4 FL (83-99); MEAN PLAT.VOLUME 12.5 uM^3 (9.5-12.4); NRBC (%) 0.2 /100 WBC (0-0); PLATELET COUNT 331 K/uL (156-360); RBC DIS.WIDTH-SD 48.3 % (39-53); RED BLOOD COUNT 2.94 M/uL (3.80-5.20); WHITE BLOOD COUNT 15.7 K/uL (4.1-10.2)
[2017-04-19 03:42] VITALS: BP 174/79
[2017-04-19 07:17] VITALS: BP 123/57
[2017-04-19 07:54] LABS: BASOPHIL COUNT 0.1 K/uL (0-0.1); EOSINOPHIL (%) 4.7 % (0-5); EOSINOPHIL COUNT 0.7 K/uL (0-0.3); HEMATOCRIT 25.2 % (36.0-46.0); IMMATURE GRANULOCYTE (%) 1.1 % (0.0-0.7); IMMATURE GRANULOCYTE COUNT 0.2 K/uL; INSTRUMENT ABS NEUTROPHIL CT 10.9 K/uL; LYMPHOCYTE COUNT 1.8 K/uL (1.0-2.8); MCH 28.9 PG (29.0-34.0); MCHC 32.5 G/DL (30.0-36.0); MCV 88.7 FL (83-99); MEAN PLAT.VOLUME 12.5 uM^3 (9.5-12.4); MONOCYTE (%) 8.5 % (3-12); MONOCYTE COUNT 1.3 K/uL (0-0.8); NEUTROPHIL (%) 73.5 % (45-76); NEUTROPHIL COUNT 10.9 K/uL (1.8-6.4); NRBC (%) 0.2 /100 WBC (0-0); PLATELET COUNT 366 K/uL (156-360); RBC DIS.WIDTH-SD 48.6 % (39-53); RED BLOOD COUNT 2.84 M/uL (3.80-5.20); WHITE BLOOD COUNT 14.9 K/uL (4.1-10.2)
[2017-04-19 08:14] LABS: ANION GAP 10 MEQ/L (2-14); CHLORIDE 103 MEQ/L (99-109); GFR ESTIMATE (CALCULATED) > 59 mL/min/; GLUCOSE 158 mg/dL (70-99); MAGNESIUM 1.5 mg/dl (1.3-2.7); POTASSIUM 4.3 MEQ/L (3.7-5.4); SAMPLE HEMOLYSIS CHECK 0; SAMPLE ICTERIC CHECK 0; SAMPLE LIPEMIA CHECK 0; SODIUM 137 MEQ/L (136-147); UREA NITROGEN (BUN) 9 mg/dL (9-23)
[2017-04-19 14:50] VITALS: BP 137/62
[2017-04-19 17:28] LABS: HEMATOCRIT 25.7 % (36.0-46.0); MCH 28.6 PG (29.0-34.0); MCHC 32.3 G/DL (30.0-36.0); MCV 88.6 FL (83-99); MEAN PLAT.VOLUME 12.6 uM^3 (9.5-12.4); PLATELET COUNT 387 K/uL (156-360); RBC DIS.WIDTH-CV 14.7 % (11.8-14.6); RBC DIS.WIDTH-SD 47.5 % (39-53); WHITE BLOOD COUNT 19.2 K/uL (4.1-10.2)
[2017-04-19 21:20] VITALS: BP 166/75
[2017-04-20 00:13] LABS: HEMATOCRIT 25.5 % (36.0-46.0); MCH 28.9 PG (29.0-34.0); MCHC 32.5 G/DL (30.0-36.0); MCV 88.9 FL (83-99); MEAN PLAT.VOLUME 12.5 uM^3 (9.5-12.4); NRBC (%) 0.1 /100 WBC (0-0); PLATELET COUNT 397 K/uL (156-360); RBC DIS.WIDTH-CV 14.7 % (11.8-14.6); RBC DIS.WIDTH-SD 47.8 % (39-53); RED BLOOD COUNT 2.87 M/uL (3.80-5.20); WHITE BLOOD COUNT 15.6 K/uL (4.1-10.2)
[2017-04-20 00:17] VITALS: BP 160/72
[2017-04-20 04:10] VITALS: BP 145/65
[2017-04-20 08:17] LABS: BASOPHIL COUNT 0.1 K/uL (0-0.1); EOSINOPHIL (%) 3.3 % (0-5); EOSINOPHIL COUNT 0.5 K/uL (0-0.3); HEMATOCRIT 25.3 % (36.0-46.0); IMMATURE GRANULOCYTE (%) 0.7 % (0.0-0.7); IMMATURE GRANULOCYTE COUNT 0.1 K/uL; INSTRUMENT ABS NEUTROPHIL CT 12.3 K/uL; LYMPHOCYTE COUNT 1.6 K/uL (1.0-2.8); MCH 29.2 PG (29.0-34.0); MCHC 32.4 G/DL (30.0-36.0); MEAN PLAT.VOLUME 12.5 uM^3 (9.5-12.4); MONOCYTE (%) 9.1 % (3-12); MONOCYTE COUNT 1.5 K/uL (0-0.8); NEUTROPHIL (%) 76.9 % (45-76); NEUTROPHIL COUNT 12.3 K/uL (1.8-6.4); PLATELET COUNT 413 K/uL (156-360); RBC DIS.WIDTH-CV 14.6 % (11.8-14.6); RED BLOOD COUNT 2.81 M/uL (3.80-5.20)
[2017-04-20 08:38] LABS: ANION GAP 9 MEQ/L (2-14); CHLORIDE 102 MEQ/L (99-109); GFR ESTIMATE (CALCULATED) > 59 mL/min/; GLUCOSE 261 mg/dL (70-99); MAGNESIUM 1.5 mg/dl (1.3-2.7); POTASSIUM 4.6 MEQ/L (3.7-5.4); SAMPLE HEMOLYSIS CHECK 0; SAMPLE ICTERIC CHECK 0; SAMPLE LIPEMIA CHECK 0; SODIUM 135 MEQ/L (136-147); UREA NITROGEN (BUN) 9 mg/dL (9-23)
[2017-04-20 10:09] LABS: POINT-OF-CARE USER ID HMCKB111
[2017-04-20 11:00] VITALS: BP 186/84
[2017-04-20 12:53] LABS: HEMATOCRIT 26.8 % (36.0-46.0); MCH 28.6 PG (29.0-34.0); MCHC 31.7 G/DL (30.0-36.0); MCV 90.2 FL (83-99); MEAN PLAT.VOLUME 12.6 uM^3 (9.5-12.4); PLATELET COUNT 425 K/uL (156-360); RBC DIS.WIDTH-CV 14.6 % (11.8-14.6); RED BLOOD COUNT 2.97 M/uL (3.80-5.20); WHITE BLOOD COUNT 18.1 K/uL (4.1-10.2)
[2017-04-20 16:20] LABS: POINT-OF-CARE METER ID UU13113819
[2017-04-20 18:00] VITALS: BP 137/75
[2017-04-20 18:00] LABS: POINT-OF-CARE METER ID UU14174216
[2017-04-20 18:42] LABS: HEMATOCRIT 29.8 % (36.0-46.0); MCH 29.1 PG (29.0-34.0); MCHC 32.2 G/DL (30.0-36.0); MCV 90.3 FL (83-99); MEAN PLAT.VOLUME 12.3 uM^3 (9.5-12.4); PLATELET COUNT 479 K/uL (156-360); RBC DIS.WIDTH-CV 14.5 % (11.8-14.6); RBC DIS.WIDTH-SD 47.6 % (39-53); WHITE BLOOD COUNT 18.8 K/uL (4.1-10.2)
[2017-04-20 20:00] VITALS: BP 142/63
[2017-04-20 21:19] LABS: POINT-OF-CARE METER ID UU14174216
[2017-04-20 23:28] VITALS: BP 145/66
[2017-04-21 08:10] LABS: ANION GAP 9 MEQ/L (2-14); CHLORIDE 101 MEQ/L (99-109); GFR ESTIMATE (CALCULATED) > 59 mL/min/; GLUCOSE 203 mg/dL (70-99); MAGNESIUM 1.5 mg/dl (1.3-2.7); POTASSIUM 4.4 MEQ/L (3.7-5.4); SAMPLE HEMOLYSIS CHECK 0; SAMPLE ICTERIC CHECK 0; SAMPLE LIPEMIA CHECK 0; SODIUM 133 MEQ/L (136-147); UREA NITROGEN (BUN) 7 mg/dL (9-23)
[2017-04-21 11:30] VITALS: BP 146/84
[2017-04-21 11:30] LABS: POINT-OF-CARE METER ID UU14174216
[2017-04-21 13:58] LABS: BASOPHIL COUNT 0.1 K/uL (0-0.1); EOSINOPHIL (%) 2.9 % (0-5); EOSINOPHIL COUNT 0.6 K/uL (0-0.3); HEMATOCRIT 26.1 % (36.0-46.0); IMMATURE GRANULOCYTE (%) 1.1 % (0.0-0.7); IMMATURE GRANULOCYTE COUNT 0.2 K/uL; INSTRUMENT ABS NEUTROPHIL CT 15.1 K/uL; LYMPHOCYTE COUNT 1.6 K/uL (1.0-2.8); MCH 28.6 PG (29.0-34.0); MCHC 31.4 G/DL (30.0-36.0); MCV 90.9 FL (83-99); MEAN PLAT.VOLUME 12.4 uM^3 (9.5-12.4); MONOCYTE (%) 8.1 % (3-12); MONOCYTE COUNT 1.6 K/uL (0-0.8); NEUTROPHIL (%) 79.2 % (45-76); NEUTROPHIL COUNT 15.1 K/uL (1.8-6.4); PLATELET COUNT 475 K/uL (156-360); RBC DIS.WIDTH-CV 14.7 % (11.8-14.6); RBC DIS.WIDTH-SD 48.6 % (39-53); RED BLOOD COUNT 2.87 M/uL (3.80-5.20); WHITE BLOOD COUNT 19.1 K/uL (4.1-10.2)
[2017-04-21 16:21] LABS: POINT-OF-CARE USER ID HMCKB111
[2017-04-21 16:48] VITALS: BP 158/72
[2017-04-21 16:50] LABS: POINT-OF-CARE METER ID UU14174216; POINT-OF-CARE USER ID ENVKC36
[2017-04-21 18:11] LABS: HEMATOCRIT 24.7 % (36.0-46.0); MCH 28.6 PG (29.0-34.0); MCHC 31.6 G/DL (30.0-36.0); MCV 90.5 FL (83-99); MEAN PLAT.VOLUME 11.7 uM^3 (9.5-12.4); PLATELET COUNT 457 K/uL (156-360); RBC DIS.WIDTH-CV 14.5 % (11.8-14.6); RBC DIS.WIDTH-SD 47.4 % (39-53); RED BLOOD COUNT 2.73 M/uL (3.80-5.20); WHITE BLOOD COUNT 16.6 K/uL (4.1-10.2)
[2017-04-21 20:45] VITALS: BP 144/68
[2017-04-21 21:31] LABS: POINT-OF-CARE METER ID UU14174216
[2017-04-22 00:50] VITALS: BP 139/67
[2017-04-22 01:22] LABS: HEMATOCRIT 28.7 % (36.0-46.0); MCH 28.7 PG (29.0-34.0); MCHC 31.4 G/DL (30.0-36.0); MCV 91.4 FL (83-99); NRBC (%) 0.1 /100 WBC (0-0); PLATELET COUNT 468 K/uL (156-360); RBC DIS.WIDTH-CV 14.6 % (11.8-14.6); RBC DIS.WIDTH-SD 49.1 % (39-53); RED BLOOD COUNT 3.14 M/uL (3.80-5.20)
[2017-04-22 04:27] VITALS: BP 143/70
[2017-04-22 05:58] LABS: BASOPHIL COUNT 0.1 K/uL (0-0.1); EOSINOPHIL (%) 3.3 % (0-5); EOSINOPHIL COUNT 0.5 K/uL (0-0.3); HEMATOCRIT 24.1 % (36.0-46.0); IMMATURE GRANULOCYTE (%) 0.7 % (0.0-0.7); IMMATURE GRANULOCYTE COUNT 0.1 K/uL; INSTRUMENT ABS NEUTROPHIL CT 10.5 K/uL; LYMPHOCYTE COUNT 1.8 K/uL (1.0-2.8); MCH 28.7 PG (29.0-34.0); MCV 89.9 FL (83-99); MEAN PLAT.VOLUME 12.1 uM^3 (9.5-12.4); MONOCYTE COUNT 1.3 K/uL (0-0.8); NEUTROPHIL (%) 73.8 % (45-76); NEUTROPHIL COUNT 10.5 K/uL (1.8-6.4); PLATELET COUNT 466 K/uL (156-360); RBC DIS.WIDTH-CV 14.4 % (11.8-14.6); RBC DIS.WIDTH-SD 47.3 % (39-53); RED BLOOD COUNT 2.68 M/uL (3.80-5.20); WHITE BLOOD COUNT 14.3 K/uL (4.1-10.2)
[2017-04-22 06:23] LABS: CHLORIDE 106 mEq/L (99-109); POTASSIUM 3.9 mEq/L (3.7-5.4); SODIUM 137 mEq/L (136-147)
[2017-04-22 06:24] LABS: MAGNESIUM 1.3 mg/dL (1.3-2.7)
[2017-04-22 06:25] LABS: GLUCOSE 211 mg/dL (70-99)
[2017-04-22 06:27] LABS: ANION GAP 7 MEQ/L (2-14)
[2017-04-22 06:29] LABS: GFR ESTIMATE (CALCULATED) > 59 mL/min/
[2017-04-22 06:30] LABS: UREA NITROGEN (BUN) 8 mg/dL (9-23)
[2017-04-22 07:10] LABS: POINT-OF-CARE USER ID HMCKB111
[2017-04-22 09:50] LABS: POINT-OF-CARE USER ID HMCKB111
[2017-04-22 10:50] VITALS: BP 144/66
[2017-04-22 11:04] LABS: HEMATOCRIT 28.4 % (36.0-46.0); MCH 28.3 PG (29.0-34.0); MCV 91.3 FL (83-99); MEAN PLAT.VOLUME 11.8 uM^3 (9.5-12.4); PLATELET COUNT 530 K/uL (156-360); RBC DIS.WIDTH-CV 14.5 % (11.8-14.6); RBC DIS.WIDTH-SD 48.2 % (39-53); RED BLOOD COUNT 3.11 M/uL (3.80-5.20); WHITE BLOOD COUNT 16.8 K/uL (4.1-10.2)
[2017-04-22 16:14] LABS: POINT-OF-CARE METER ID UU14174216
[2017-04-22 18:25] LABS: HEMATOCRIT 25.6 % (36.0-46.0); MCH 28.4 PG (29.0-34.0); MCHC 31.6 G/DL (30.0-36.0); MCV 89.8 FL (83-99); MEAN PLAT.VOLUME 11.6 uM^3 (9.5-12.4); PLATELET COUNT 499 K/uL (156-360); RBC DIS.WIDTH-CV 14.3 % (11.8-14.6); RBC DIS.WIDTH-SD 46.5 % (39-53); RED BLOOD COUNT 2.85 M/uL (3.80-5.20)
[2017-04-22 19:08] VITALS: BP 141/65
[2017-04-22 21:16] LABS: POINT-OF-CARE METER ID UU13113781
[2017-04-23] VITALS (7 sets, daily range): BP systolic 122–168; BP diastolic 69–81
[2017-04-23 01:10] LABS: HEMATOCRIT 26.1 % (36.0-46.0); MCH 28.4 PG (29.0-34.0); MCHC 31.4 G/DL (30.0-36.0); MCV 90.3 FL (83-99); MEAN PLAT.VOLUME 11.7 uM^3 (9.5-12.4); PLATELET COUNT 509 K/uL (156-360); RBC DIS.WIDTH-CV 14.4 % (11.8-14.6); RBC DIS.WIDTH-SD 47.8 % (39-53); RED BLOOD COUNT 2.89 M/uL (3.80-5.20); WHITE BLOOD COUNT 15.4 K/uL (4.1-10.2)
[2017-04-23 06:28] LABS: BASOPHIL COUNT 0.1 K/uL (0-0.1); EOSINOPHIL (%) 2.1 % (0-5); EOSINOPHIL COUNT 0.4 K/uL (0-0.3); HEMATOCRIT 26.3 % (36.0-46.0); IMMATURE GRANULOCYTE (%) 0.8 % (0.0-0.7); IMMATURE GRANULOCYTE COUNT 0.1 K/uL; INSTRUMENT ABS NEUTROPHIL CT 12.6 K/uL; LYMPHOCYTE COUNT 2.3 K/uL (1.0-2.8); MCH 28.1 PG (29.0-34.0); MCHC 30.8 G/DL (30.0-36.0); MCV 91.3 FL (83-99); MONOCYTE COUNT 1.3 K/uL (0-0.8); NEUTROPHIL (%) 75.1 % (45-76); NEUTROPHIL COUNT 12.6 K/uL (1.8-6.4); RBC DIS.WIDTH-CV 14.4 % (11.8-14.6); RBC DIS.WIDTH-SD 48.3 % (39-53); RED BLOOD COUNT 2.88 M/uL (3.80-5.20); WHITE BLOOD COUNT 16.7 K/uL (4.1-10.2)
[2017-04-23 07:03] LABS: ANION GAP 8 MEQ/L (2-14); CHLORIDE 103 MEQ/L (99-109); GFR ESTIMATE (CALCULATED) > 59 mL/min/; GLUCOSE 151 mg/dL (70-99); MAGNESIUM 1.6 mg/dl (1.3-2.7); SAMPLE HEMOLYSIS CHECK 0; SAMPLE ICTERIC CHECK 0; SAMPLE LIPEMIA CHECK 0; SODIUM 137 MEQ/L (136-147); UREA NITROGEN (BUN) 8 mg/dL (9-23)
[2017-04-23 07:24] LABS: MEAN PLAT.VOLUME 11.6 uM^3 (9.5-12.4); PLATELET COUNT 536 K/uL (156-360)
[2017-04-23 07:42] LABS: POINT-OF-CARE METER ID UU13113781
[2017-04-23 11:52] LABS: POINT-OF-CARE METER ID UU14174216
[2017-04-23 12:21] LABS: HEMATOCRIT 25.1 % (36.0-46.0); MCH 28.5 PG (29.0-34.0); MCHC 31.5 G/DL (30.0-36.0); MCV 90.6 FL (83-99); MEAN PLAT.VOLUME 11.6 uM^3 (9.5-12.4); PLATELET COUNT 536 K/uL (156-360); RBC DIS.WIDTH-CV 14.4 % (11.8-14.6); RBC DIS.WIDTH-SD 48.3 % (39-53); RED BLOOD COUNT 2.77 M/uL (3.80-5.20); WHITE BLOOD COUNT 18.4 K/uL (4.1-10.2)
[2017-04-23 16:31] LABS: POINT-OF-CARE METER ID UU14174216
[2017-04-23 18:35] LABS: HEMATOCRIT 26.8 % (36.0-46.0); MCH 28.4 PG (29.0-34.0); MCHC 31.3 G/DL (30.0-36.0); MCV 90.5 FL (83-99); MEAN PLAT.VOLUME 11.5 uM^3 (9.5-12.4); PLATELET COUNT 556 K/uL (156-360); RBC DIS.WIDTH-CV 14.4 % (11.8-14.6); RBC DIS.WIDTH-SD 47.7 % (39-53); RED BLOOD COUNT 2.96 M/uL (3.80-5.20); WHITE BLOOD COUNT 17.8 K/uL (4.1-10.2)
[2017-04-23 20:40] LABS: POINT-OF-CARE METER ID UU14174216
[2017-04-24 01:22] LABS: HEMATOCRIT 24.1 % (36.0-46.0); MCH 28.2 PG (29.0-34.0); MCHC 31.1 G/DL (30.0-36.0); MCV 90.6 FL (83-99); MEAN PLAT.VOLUME 11.8 uM^3 (9.5-12.4); PLATELET COUNT 514 K/uL (156-360); RBC DIS.WIDTH-CV 14.6 % (11.8-14.6); RBC DIS.WIDTH-SD 47.6 % (39-53); RED BLOOD COUNT 2.66 M/uL (3.80-5.20); WHITE BLOOD COUNT 15.6 K/uL (4.1-10.2)
[2017-04-24 04:04] VITALS: BP 140/66
[2017-04-24 04:18] LABS: BASOPHIL COUNT 0.1 K/uL (0-0.1); EOSINOPHIL (%) 2.1 % (0-5); EOSINOPHIL COUNT 0.3 K/uL (0-0.3); IMMATURE GRANULOCYTE (%) 0.6 % (0.0-0.7); IMMATURE GRANULOCYTE COUNT 0.1 K/uL; LYMPHOCYTE COUNT 2.6 K/uL (1.0-2.8); MCH 28.4 PG (29.0-34.0); MCHC 31.6 G/DL (30.0-36.0); MCV 89.9 FL (83-99); MEAN PLAT.VOLUME 11.3 uM^3 (9.5-12.4); MONOCYTE (%) 9.3 % (3-12); MONOCYTE COUNT 1.4 K/uL (0-0.8); NEUTROPHIL (%) 71.1 % (45-76); PLATELET COUNT 502 K/uL (156-360); RBC DIS.WIDTH-CV 14.5 % (11.8-14.6); RBC DIS.WIDTH-SD 47.8 % (39-53); RED BLOOD COUNT 2.78 M/uL (3.80-5.20); WHITE BLOOD COUNT 15.5 K/uL (4.1-10.2)
[2017-04-24 04:54] LABS: ANION GAP 7 MEQ/L (2-14); CHLORIDE 104 MEQ/L (99-109); GFR ESTIMATE (CALCULATED) > 59 mL/min/; MAGNESIUM 1.6 mg/dl (1.3-2.7); SAMPLE HEMOLYSIS CHECK 0; SAMPLE ICTERIC CHECK 0; SAMPLE LIPEMIA CHECK 0; SODIUM 137 MEQ/L (136-147); UREA NITROGEN (BUN) 10 mg/dL (9-23)
[2017-04-24 04:57] LABS: GLUCOSE 102 mg/dL (70-99)
[2017-04-24 07:52] LABS: POINT-OF-CARE METER ID UU14174216
[2017-04-24 07:57] VITALS: BP 154/69
[2017-04-24 11:38] LABS: POINT-OF-CARE METER ID UU14174216
[2017-04-24 12:14] VITALS: BP 163/80
[2017-04-24 16:21] LABS: POINT-OF-CARE METER ID UU14174216
[2017-04-24 16:22] VITALS: BP 195/90
[2017-04-24 18:34] LABS: HEMATOCRIT 27.9 % (36.0-46.0); MCH 28.3 PG (29.0-34.0); MCHC 31.2 G/DL (30.0-36.0); MCV 90.9 FL (83-99); MEAN PLAT.VOLUME 11.5 uM^3 (9.5-12.4); PLATELET COUNT 581 K/uL (156-360); RBC DIS.WIDTH-CV 14.6 % (11.8-14.6); RBC DIS.WIDTH-SD 48.8 % (39-53); RED BLOOD COUNT 3.07 M/uL (3.80-5.20)
[2017-04-24 20:49] VITALS: BP 165/72
[2017-04-24 21:53] LABS: POINT-OF-CARE METER ID UU13113781
[2017-04-24 23:38] LABS: MCH 27.7 PG (29.0-34.0); MCHC 30.8 G/DL (30.0-36.0); MCV 89.9 FL (83-99); MEAN PLAT.VOLUME 11.4 uM^3 (9.5-12.4); PLATELET COUNT 547 K/uL (156-360); RBC DIS.WIDTH-CV 14.6 % (11.8-14.6); RBC DIS.WIDTH-SD 47.9 % (39-53); RED BLOOD COUNT 2.78 M/uL (3.80-5.20); WHITE BLOOD COUNT 15.3 K/uL (4.1-10.2)
[2017-04-25 04:16] VITALS: BP 156/80
[2017-04-25 05:00] LABS: BASOPHIL COUNT 0.1 K/uL (0-0.1); EOSINOPHIL COUNT 0.3 K/uL (0-0.3); HEMATOCRIT 23.6 % (36.0-46.0); IMMATURE GRANULOCYTE (%) 0.8 % (0.0-0.7); IMMATURE GRANULOCYTE COUNT 0.1 K/uL; INSTRUMENT ABS NEUTROPHIL CT 10.3 K/uL; LYMPHOCYTE COUNT 2.2 K/uL (1.0-2.8); MCH 27.9 PG (29.0-34.0); MCHC 30.9 G/DL (30.0-36.0); MCV 90.1 FL (83-99); MEAN PLAT.VOLUME 11.4 uM^3 (9.5-12.4); MONOCYTE (%) 9.8 % (3-12); MONOCYTE COUNT 1.4 K/uL (0-0.8); NEUTROPHIL (%) 71.5 % (45-76); NEUTROPHIL COUNT 10.3 K/uL (1.8-6.4); PLATELET COUNT 548 K/uL (156-360); RBC DIS.WIDTH-CV 14.7 % (11.8-14.6); RBC DIS.WIDTH-SD 48.8 % (39-53); RED BLOOD COUNT 2.62 M/uL (3.80-5.20); WHITE BLOOD COUNT 14.4 K/uL (4.1-10.2)
[2017-04-25 05:16] LABS: CHLORIDE 103 mEq/L (99-109); POTASSIUM 4.3 mEq/L (3.7-5.4); SODIUM 136 mEq/L (136-147)
[2017-04-25 05:17] LABS: MAGNESIUM 1.2 mg/dL (1.3-2.7)
[2017-04-25 05:18] LABS: GLUCOSE 147 mg/dL (70-99)
[2017-04-25 05:20] LABS: ANION GAP 7 MEQ/L (2-14)
[2017-04-25 05:22] LABS: GFR ESTIMATE (CALCULATED) > 59 mL/min/
[2017-04-25 05:23] LABS: UREA NITROGEN (BUN) 10 mg/dL (9-23)
[2017-04-25 07:08] VITALS: BP 133/74
[2017-04-25 11:28] VITALS: BP 155/72
[2017-04-25 11:36] LABS: POINT-OF-CARE METER ID UU13113781
[2017-04-25 13:52] LABS: HEMATOCRIT 26.4 % (36.0-46.0); MCH 28.3 PG (29.0-34.0); MCHC 31.4 G/DL (30.0-36.0); MCV 90.1 FL (83-99); MEAN PLAT.VOLUME 11.3 uM^3 (9.5-12.4); PLATELET COUNT 606 K/uL (156-360); RBC DIS.WIDTH-CV 14.5 % (11.8-14.6); RBC DIS.WIDTH-SD 47.4 % (39-53); RED BLOOD COUNT 2.93 M/uL (3.80-5.20); WHITE BLOOD COUNT 16.1 K/uL (4.1-10.2)
[2017-04-25 16:17] LABS: POINT-OF-CARE METER ID UU14174216
[2017-04-25 16:54] VITALS: BP 163/72
[2017-04-25 17:36] LABS: HEMATOCRIT 26.7 % (36.0-46.0); MCH 28.5 PG (29.0-34.0); MCHC 31.8 G/DL (30.0-36.0); MCV 89.6 FL (83-99); MEAN PLAT.VOLUME 11.3 uM^3 (9.5-12.4); PLATELET COUNT 576 K/uL (156-360); RBC DIS.WIDTH-CV 14.7 % (11.8-14.6); RBC DIS.WIDTH-SD 47.8 % (39-53); RED BLOOD COUNT 2.98 M/uL (3.80-5.20); WHITE BLOOD COUNT 15.5 K/uL (4.1-10.2)
[2017-04-25 20:46] LABS: POINT-OF-CARE USER ID ENVMNS
[2017-04-25 21:50] VITALS: BP 160/72
[2017-04-26 00:30] VITALS: BP 156/72
[2017-04-26 00:31] LABS: HEMATOCRIT 23.6 % (36.0-46.0); MCH 28.5 PG (29.0-34.0); MCHC 31.8 G/DL (30.0-36.0); MCV 89.7 FL (83-99); MEAN PLAT.VOLUME 11.4 uM^3 (9.5-12.4); PLATELET COUNT 545 K/uL (156-360); RBC DIS.WIDTH-CV 14.7 % (11.8-14.6); RBC DIS.WIDTH-SD 48.2 % (39-53); RED BLOOD COUNT 2.63 M/uL (3.80-5.20); WHITE BLOOD COUNT 13.9 K/uL (4.1-10.2)
[2017-04-26 07:46] LABS: BASOPHIL COUNT 0.1 K/uL (0-0.1); EOSINOPHIL (%) 2.2 % (0-5); EOSINOPHIL COUNT 0.3 K/uL (0-0.3); HEMATOCRIT 24.4 % (36.0-46.0); IMMATURE GRANULOCYTE (%) 0.6 % (0.0-0.7); IMMATURE GRANULOCYTE COUNT 0.1 K/uL; INSTRUMENT ABS NEUTROPHIL CT 10.7 K/uL; LYMPHOCYTE COUNT 1.6 K/uL (1.0-2.8); MCH 27.6 PG (29.0-34.0); MCHC 30.7 G/DL (30.0-36.0); MCV 89.7 FL (83-99); MEAN PLAT.VOLUME 11.1 uM^3 (9.5-12.4); MONOCYTE (%) 8.5 % (3-12); MONOCYTE COUNT 1.2 K/uL (0-0.8); NEUTROPHIL (%) 76.6 % (45-76); NEUTROPHIL COUNT 10.7 K/uL (1.8-6.4); PLATELET COUNT 564 K/uL (156-360); RBC DIS.WIDTH-CV 14.6 % (11.8-14.6); RBC DIS.WIDTH-SD 47.7 % (39-53); RED BLOOD COUNT 2.72 M/uL (3.80-5.20)
[2017-04-26 07:49] VITALS: BP 142/75
[2017-04-26 08:11] LABS: POINT-OF-CARE METER ID UU14174216; POINT-OF-CARE USER ID ENVKC36
[2017-04-26 08:22] LABS: ANION GAP 9 MEQ/L (2-14); CHLORIDE 100 MEQ/L (99-109); GFR ESTIMATE (CALCULATED) > 59 mL/min/; GLUCOSE 188 mg/dL (70-99); MAGNESIUM 1.5 mg/dl (1.3-2.7); POTASSIUM 4.3 MEQ/L (3.7-5.4); SAMPLE HEMOLYSIS CHECK 0; SAMPLE ICTERIC CHECK 0; SAMPLE LIPEMIA CHECK 0; SODIUM 137 MEQ/L (136-147); UREA NITROGEN (BUN) 12 mg/dL (9-23)
[2017-04-26 11:11] LABS: POINT-OF-CARE METER ID UU13113694
[2017-04-26 12:19] LABS: POINT-OF-CARE METER ID UU13113781
[2017-04-26 12:28] VITALS: BP 169/78
[2017-04-26 12:44] LABS: HEMATOCRIT 24.7 % (36.0-46.0); MCH 28.3 PG (29.0-34.0); MCHC 31.6 G/DL (30.0-36.0); MCV 89.5 FL (83-99); MEAN PLAT.VOLUME 11.5 uM^3 (9.5-12.4); PLATELET COUNT 580 K/uL (156-360); RBC DIS.WIDTH-CV 14.6 % (11.8-14.6); RED BLOOD COUNT 2.76 M/uL (3.80-5.20)
[2017-04-26 16:27] LABS: POINT-OF-CARE METER ID UU14174216; POINT-OF-CARE USER ID ENVKC36
[2017-04-26 17:06] VITALS: BP 151/78
[2017-04-26 17:59] LABS: HEMATOCRIT 27.5 % (36.0-46.0); MCHC 31.3 G/DL (30.0-36.0); MCV 89.6 FL (83-99); MEAN PLAT.VOLUME 11.2 uM^3 (9.5-12.4); PLATELET COUNT 629 K/uL (156-360); RBC DIS.WIDTH-CV 14.6 % (11.8-14.6); RBC DIS.WIDTH-SD 47.1 % (39-53); RED BLOOD COUNT 3.07 M/uL (3.80-5.20); WHITE BLOOD COUNT 13.4 K/uL (4.1-10.2)
[2017-04-26 19:07] VITALS: BP 148/69
[2017-04-26 21:08] LABS: POINT-OF-CARE METER ID UU13113781
[2017-04-26 22:25] VITALS: BP 121/79
[2017-04-26 23:44] LABS: HEMATOCRIT 24.1 % (36.0-46.0); MCHC 31.1 G/DL (30.0-36.0); MCV 89.9 FL (83-99); MEAN PLAT.VOLUME 11.2 uM^3 (9.5-12.4); PLATELET COUNT 553 K/uL (156-360); RBC DIS.WIDTH-CV 14.6 % (11.8-14.6); RBC DIS.WIDTH-SD 47.7 % (39-53); RED BLOOD COUNT 2.68 M/uL (3.80-5.20); WHITE BLOOD COUNT 13.3 K/uL (4.1-10.2)
[2017-04-27 00:32] VITALS: BP 132/62
[2017-04-27 05:06] LABS: BASOPHIL COUNT 0.1 K/uL (0-0.1); EOSINOPHIL (%) 3.6 % (0-5); EOSINOPHIL COUNT 0.5 K/uL (0-0.3); HEMATOCRIT 24.9 % (36.0-46.0); IMMATURE GRANULOCYTE (%) 0.6 % (0.0-0.7); IMMATURE GRANULOCYTE COUNT 0.1 K/uL; INSTRUMENT ABS NEUTROPHIL CT 9.1 K/uL; MCH 29.6 PG (29.0-34.0); MCHC 32.5 G/DL (30.0-36.0); MCV 90.9 FL (83-99); MEAN PLAT.VOLUME 11.2 uM^3 (9.5-12.4); MONOCYTE COUNT 1.6 K/uL (0-0.8); NEUTROPHIL (%) 68.3 % (45-76); NEUTROPHIL COUNT 9.1 K/uL (1.8-6.4); PLATELET COUNT 618 K/uL (156-360); RBC DIS.WIDTH-SD 49.5 % (39-53); RED BLOOD COUNT 2.74 M/uL (3.80-5.20); WHITE BLOOD COUNT 13.3 K/uL (4.1-10.2)
[2017-04-27 05:33] LABS: ANION GAP 14 MEQ/L (2-14); CHLORIDE 99 MEQ/L (99-109); GFR ESTIMATE (CALCULATED) > 59 mL/min/; GLUCOSE 207 mg/dL (70-99); MAGNESIUM 1.6 mg/dl (1.3-2.7); POTASSIUM 4.4 MEQ/L (3.7-5.4); SAMPLE HEMOLYSIS CHECK 0; SAMPLE ICTERIC CHECK 0; SAMPLE LIPEMIA CHECK 0; SODIUM 137 MEQ/L (136-147); UREA NITROGEN (BUN) 13 mg/dL (9-23); VANCOMYCIN, TROUGH 15.3 MCG/ML (10-20)
[2017-04-27 08:15] LABS: POINT-OF-CARE METER ID UU13113781; POINT-OF-CARE USER ID ENVKC36
[2017-04-27 09:25] VITALS: BP 133/58
[2017-04-27 11:38] LABS: POINT-OF-CARE USER ID ENVKC36
[2017-04-27 12:27] LABS: HEMATOCRIT 24.6 % (36.0-46.0); MCH 29.2 PG (29.0-34.0); MCHC 31.7 G/DL (30.0-36.0); MCV 92.1 FL (83-99); MEAN PLAT.VOLUME 11.3 uM^3 (9.5-12.4); PLATELET COUNT 533 K/uL (156-360); RBC DIS.WIDTH-CV 15.2 % (11.8-14.6); RBC DIS.WIDTH-SD 50.6 % (39-53); RED BLOOD COUNT 2.67 M/uL (3.80-5.20); WHITE BLOOD COUNT 12.9 K/uL (4.1-10.2)
[2017-04-27 13:00] VITALS: BP 130/71
[2017-04-27 16:37] LABS: POINT-OF-CARE USER ID ENVKC36
[2017-04-27 17:23] VITALS: BP 185/87
[2017-04-27 18:15] LABS: HEMATOCRIT 28.7 % (36.0-46.0); MCH 28.2 PG (29.0-34.0); MCHC 30.7 G/DL (30.0-36.0); PLATELET COUNT 620 K/uL (156-360); RBC DIS.WIDTH-CV 14.8 % (11.8-14.6); RBC DIS.WIDTH-SD 49.6 % (39-53); RED BLOOD COUNT 3.12 M/uL (3.80-5.20); WHITE BLOOD COUNT 15.7 K/uL (4.1-10.2)
[2017-04-27 19:45] VITALS: BP 154/72
[2017-04-27 23:20] VITALS: BP 135/65
[2017-04-28 00:22] LABS: HEMATOCRIT 24.4 % (36.0-46.0); MCHC 31.1 G/DL (30.0-36.0); MEAN PLAT.VOLUME 11.1 uM^3 (9.5-12.4); NRBC (%) 0.2 /100 WBC (0-0); PLATELET COUNT 559 K/uL (156-360); RBC DIS.WIDTH-CV 14.9 % (11.8-14.6); RBC DIS.WIDTH-SD 48.7 % (39-53); RED BLOOD COUNT 2.71 M/uL (3.80-5.20); WHITE BLOOD COUNT 12.9 K/uL (4.1-10.2)
[2017-04-28 03:45] VITALS: BP 141/67
[2017-04-28 05:52] LABS: BASOPHIL COUNT 0.1 K/uL (0-0.1); EOSINOPHIL (%) 2.9 % (0-5); EOSINOPHIL COUNT 0.4 K/uL (0-0.3); HEMATOCRIT 23.8 % (36.0-46.0); IMMATURE GRANULOCYTE (%) 0.6 % (0.0-0.7); IMMATURE GRANULOCYTE COUNT 0.1 K/uL; INSTRUMENT ABS NEUTROPHIL CT 10.9 K/uL; LYMPHOCYTE COUNT 1.4 K/uL (1.0-2.8); MCH 28.9 PG (29.0-34.0); MCHC 31.9 G/DL (30.0-36.0); MCV 90.5 FL (83-99); MEAN PLAT.VOLUME 11.4 uM^3 (9.5-12.4); MONOCYTE (%) 9.2 % (3-12); MONOCYTE COUNT 1.3 K/uL (0-0.8); NEUTROPHIL (%) 76.9 % (45-76); NEUTROPHIL COUNT 10.9 K/uL (1.8-6.4); PLATELET COUNT 570 K/uL (156-360); RBC DIS.WIDTH-CV 15.1 % (11.8-14.6); RBC DIS.WIDTH-SD 49.3 % (39-53); RED BLOOD COUNT 2.63 M/uL (3.80-5.20); WHITE BLOOD COUNT 14.1 K/uL (4.1-10.2)
[2017-04-28 06:47] LABS: ANION GAP 10 MEQ/L (2-14); CHLORIDE 99 MEQ/L (99-109); GFR ESTIMATE (CALCULATED) > 59 mL/min/; GLUCOSE 202 mg/dL (70-99); MAGNESIUM 1.5 mg/dl (1.3-2.7); POTASSIUM 4.3 MEQ/L (3.7-5.4); SAMPLE HEMOLYSIS CHECK 0; SAMPLE ICTERIC CHECK 0; SAMPLE LIPEMIA CHECK 0; SODIUM 137 MEQ/L (136-147); UREA NITROGEN (BUN) 11 mg/dL (9-23)
[2017-04-28 08:00] VITALS: BP 142/88
[2017-04-28 11:37] VITALS: BP 168/78
[2017-04-28 12:44] LABS: HEMATOCRIT 23.6 % (36.0-46.0); MCH 28.6 PG (29.0-34.0); MCHC 31.8 G/DL (30.0-36.0); MCV 90.1 FL (83-99); MEAN PLAT.VOLUME 11.2 uM^3 (9.5-12.4); PLATELET COUNT 594 K/uL (156-360); RBC DIS.WIDTH-SD 48.6 % (39-53); RED BLOOD COUNT 2.62 M/uL (3.80-5.20); WHITE BLOOD COUNT 13.7 K/uL (4.1-10.2)
[2017-04-28 15:38] VITALS: BP 175/82
[2017-04-28 17:55] LABS: HEMATOCRIT 25.3 % (36.0-46.0); MCH 28.1 PG (29.0-34.0); MCHC 31.6 G/DL (30.0-36.0); MCV 88.8 FL (83-99); MEAN PLAT.VOLUME 11.1 uM^3 (9.5-12.4); PLATELET COUNT 618 K/uL (156-360); RBC DIS.WIDTH-CV 14.9 % (11.8-14.6); RBC DIS.WIDTH-SD 47.9 % (39-53); RED BLOOD COUNT 2.85 M/uL (3.80-5.20); WHITE BLOOD COUNT 14.7 K/uL (4.1-10.2)
[2017-04-28 20:31] VITALS: BP 125/67
[2017-04-28 23:34] LABS: HEMATOCRIT 23.2 % (36.0-46.0); MCH 27.7 PG (29.0-34.0); MCV 89.2 FL (83-99); MEAN PLAT.VOLUME 10.6 uM^3 (9.5-12.4); PLATELET COUNT 562 K/uL (156-360); RBC DIS.WIDTH-CV 14.9 % (11.8-14.6); RBC DIS.WIDTH-SD 47.8 % (39-53); WHITE BLOOD COUNT 12.5 K/uL (4.1-10.2)
[2017-04-29] VITALS (7 sets, daily range): BP systolic 105–153; BP diastolic 58–82
[2017-04-29 04:46] LABS: BASOPHIL COUNT 0.1 K/uL (0-0.1); EOSINOPHIL (%) 5.1 % (0-5); EOSINOPHIL COUNT 0.7 K/uL (0-0.3); HEMATOCRIT 26.2 % (36.0-46.0); IMMATURE GRANULOCYTE (%) 0.5 % (0.0-0.7); IMMATURE GRANULOCYTE COUNT 0.1 K/uL; INSTRUMENT ABS NEUTROPHIL CT 8.1 K/uL; LYMPHOCYTE COUNT 2.9 K/uL (1.0-2.8); MCH 27.7 PG (29.0-34.0); MCHC 30.5 G/DL (30.0-36.0); MCV 90.7 FL (83-99); MEAN PLAT.VOLUME 11.2 uM^3 (9.5-12.4); MONOCYTE (%) 10.1 % (3-12); MONOCYTE COUNT 1.3 K/uL (0-0.8); NEUTROPHIL (%) 61.6 % (45-76); NEUTROPHIL COUNT 8.1 K/uL (1.8-6.4); PLATELET COUNT 647 K/uL (156-360); RBC DIS.WIDTH-CV 15.1 % (11.8-14.6); RBC DIS.WIDTH-SD 49.8 % (39-53); RED BLOOD COUNT 2.89 M/uL (3.80-5.20); WHITE BLOOD COUNT 13.1 K/uL (4.1-10.2)
[2017-04-29 05:24] LABS: CHLORIDE 102 mEq/L (99-109); MAGNESIUM 1.3 mg/dL (1.3-2.7); SODIUM 138 mEq/L (136-147)
[2017-04-29 05:26] LABS: GLUCOSE 158 mg/dL (70-99)
[2017-04-29 05:27] LABS: ANION GAP 7 MEQ/L (2-14)
[2017-04-29 05:30] LABS: GFR ESTIMATE (CALCULATED) > 59 mL/min/; UREA NITROGEN (BUN) 10 mg/dL (9-23)
[2017-04-29 08:39] LABS: POINT-OF-CARE METER ID UU13113781
[2017-04-29 11:56] LABS: BASOPHIL COUNT 0.1 K/uL (0-0.1); EOSINOPHIL (%) 3.4 % (0-5); EOSINOPHIL COUNT 0.5 K/uL (0-0.3); IMMATURE GRANULOCYTE (%) 0.9 % (0.0-0.7); IMMATURE GRANULOCYTE COUNT 0.1 K/uL; INSTRUMENT ABS NEUTROPHIL CT 11.2 K/uL; LYMPHOCYTE COUNT 1.9 K/uL (1.0-2.8); MCHC 30.4 G/DL (30.0-36.0); MCV 92.3 FL (83-99); MONOCYTE (%) 8.7 % (3-12); MONOCYTE COUNT 1.3 K/uL (0-0.8); NEUTROPHIL (%) 73.8 % (45-76); NEUTROPHIL COUNT 11.2 K/uL (1.8-6.4); PLATELET COUNT 598 K/uL (156-360); RBC DIS.WIDTH-CV 15.2 % (11.8-14.6); RBC DIS.WIDTH-SD 50.5 % (39-53); RED BLOOD COUNT 2.71 M/uL (3.80-5.20); WHITE BLOOD COUNT 15.2 K/uL (4.1-10.2)
[2017-04-29 12:27] LABS: TROP-I INTERPRETATION NEGATIVE; TROPONIN-I 0.02 ng/mL (0.0-0.30)
[2017-04-29 16:40] LABS: POINT-OF-CARE METER ID UU13113781
[2017-04-29 20:39] LABS: POINT-OF-CARE METER ID UU13113781
[2017-04-29 21:25] LABS: HEMATOCRIT 23.9 % (36.0-46.0); MCH 28.6 PG (29.0-34.0); MCV 92.3 FL (83-99); MEAN PLAT.VOLUME 11.4 uM^3 (9.5-12.4); NRBC (%) 0.1 /100 WBC (0-0); PLATELET COUNT 677 K/uL (156-360); RBC DIS.WIDTH-CV 15.4 % (11.8-14.6); RBC DIS.WIDTH-SD 51.2 % (39-53); RED BLOOD COUNT 2.59 M/uL (3.80-5.20); WHITE BLOOD COUNT 14.8 K/uL (4.1-10.2)
[2017-04-30] VITALS (8 sets, daily range): BP systolic 100–157; BP diastolic 56–80
[2017-04-30 00:47] LABS: MCH 28.1 PG (29.0-34.0); MCHC 30.4 G/DL (30.0-36.0); MCV 92.3 FL (83-99); MEAN PLAT.VOLUME 11.3 uM^3 (9.5-12.4); PLATELET COUNT 600 K/uL (156-360); RBC DIS.WIDTH-CV 15.4 % (11.8-14.6); WHITE BLOOD COUNT 15.6 K/uL (4.1-10.2)
[2017-04-30 08:17] LABS: POINT-OF-CARE METER ID UU13113781
[2017-04-30 09:35] LABS: ANION GAP 15 MEQ/L (2-14); CHLORIDE 98 MEQ/L (99-109); MAGNESIUM 1.6 mg/dl (1.3-2.7); POTASSIUM 4.8 MEQ/L (3.7-5.4); SAMPLE HEMOLYSIS CHECK 0; SAMPLE ICTERIC CHECK 0; SAMPLE LIPEMIA CHECK 0; SODIUM 137 MEQ/L (136-147); UREA NITROGEN (BUN) 18 mg/dL (9-23)
[2017-04-30 09:36] LABS: GFR ESTIMATE (CALCULATED) 43 mL/min/; GLUCOSE 248 mg/dL (70-99)
[2017-04-30 09:54] LABS: TROP-I INTERPRETATION NEGATIVE; TROPONIN-I 0.03 ng/mL (0.0-0.30)
[2017-04-30 11:02] LABS: POINT-OF-CARE METER ID UU13113781
[2017-04-30 11:42] LABS: BASOPHIL COUNT 0.1 K/uL (0-0.1); EOSINOPHIL (%) 2.6 % (0-5); EOSINOPHIL COUNT 0.4 K/uL (0-0.3); HEMATOCRIT 22.1 % (36.0-46.0); IMMATURE GRANULOCYTE (%) 0.6 % (0.0-0.7); IMMATURE GRANULOCYTE COUNT 0.1 K/uL; INSTRUMENT ABS NEUTROPHIL CT 9.2 K/uL; LYMPHOCYTE COUNT 2.9 K/uL (1.0-2.8); MCHC 30.3 G/DL (30.0-36.0); MCV 92.5 FL (83-99); MEAN PLAT.VOLUME 11.2 uM^3 (9.5-12.4); MONOCYTE (%) 10.6 % (3-12); MONOCYTE COUNT 1.5 K/uL (0-0.8); NEUTROPHIL (%) 65.1 % (45-76); NEUTROPHIL COUNT 9.2 K/uL (1.8-6.4); NRBC (%) 0.2 /100 WBC (0-0); PLATELET COUNT 578 K/uL (156-360); RBC DIS.WIDTH-CV 15.4 % (11.8-14.6); RBC DIS.WIDTH-SD 51.5 % (39-53); RED BLOOD COUNT 2.39 M/uL (3.80-5.20); WHITE BLOOD COUNT 14.1 K/uL (4.1-10.2)
[2017-04-30 16:08] LABS: POINT-OF-CARE METER ID UU13113781
[2017-04-30 18:15] LABS: HEMATOCRIT 22.1 % (36.0-46.0); MCHC 30.3 G/DL (30.0-36.0); MCV 92.5 FL (83-99); MEAN PLAT.VOLUME 11.2 uM^3 (9.5-12.4); NRBC (%) 0.2 /100 WBC (0-0); PLATELET COUNT 578 K/uL (156-360); RBC DIS.WIDTH-CV 15.4 % (11.8-14.6); RBC DIS.WIDTH-SD 51.5 % (39-53); RED BLOOD COUNT 2.39 M/uL (3.80-5.20); WHITE BLOOD COUNT 14.1 K/uL (4.1-10.2)
[2017-04-30 18:33] LABS: HEMATOCRIT 25.1 % (36.0-46.0); MCH 27.7 PG (29.0-34.0); MCHC 31.1 G/DL (30.0-36.0); MEAN PLAT.VOLUME 11.1 uM^3 (9.5-12.4); NRBC (%) 0.2 /100 WBC (0-0); PLATELET COUNT 581 K/uL (156-360); RBC DIS.WIDTH-CV 15.7 % (11.8-14.6); RBC DIS.WIDTH-SD 51.1 % (39-53); RED BLOOD COUNT 2.82 M/uL (3.80-5.20)
[2017-04-30 21:30] LABS: POINT-OF-CARE METER ID UU13113781
[2017-05-01] VITALS (9 sets, daily range): BP systolic 124–164; BP diastolic 58–86
[2017-05-01 01:03] LABS: HEMATOCRIT 22.1 % (36.0-46.0); MCH 28.2 PG (29.0-34.0); MCHC 31.7 G/DL (30.0-36.0); MCV 89.1 FL (83-99); MEAN PLAT.VOLUME 10.9 uM^3 (9.5-12.4); NRBC (%) 0.1 /100 WBC (0-0); PLATELET COUNT 524 K/uL (156-360); RBC DIS.WIDTH-CV 15.9 % (11.8-14.6); RBC DIS.WIDTH-SD 51.2 % (39-53); RED BLOOD COUNT 2.48 M/uL (3.80-5.20); WHITE BLOOD COUNT 15.8 K/uL (4.1-10.2)
[2017-05-01 07:09] LABS: BASOPHIL COUNT 0.1 K/uL (0-0.1); EOSINOPHIL (%) 4.4 % (0-5); EOSINOPHIL COUNT 0.6 K/uL (0-0.3); HEMATOCRIT 22.1 % (36.0-46.0); IMMATURE GRANULOCYTE (%) 0.7 % (0.0-0.7); IMMATURE GRANULOCYTE COUNT 0.1 K/uL; INSTRUMENT ABS NEUTROPHIL CT 9.5 K/uL; LYMPHOCYTE COUNT 2.6 K/uL (1.0-2.8); MCHC 30.8 G/DL (30.0-36.0); MCV 90.9 FL (83-99); MEAN PLAT.VOLUME 11.3 uM^3 (9.5-12.4); MONOCYTE COUNT 1.6 K/uL (0-0.8); NEUTROPHIL (%) 65.5 % (45-76); NEUTROPHIL COUNT 9.5 K/uL (1.8-6.4); NRBC (%) 0.1 /100 WBC (0-0); PLATELET COUNT 543 K/uL (156-360); RBC DIS.WIDTH-CV 15.9 % (11.8-14.6); RBC DIS.WIDTH-SD 52.5 % (39-53); RED BLOOD COUNT 2.43 M/uL (3.80-5.20); WHITE BLOOD COUNT 14.4 K/uL (4.1-10.2)
[2017-05-01 07:35] LABS: ANION GAP 10 MEQ/L (2-14); CHLORIDE 100 MEQ/L (99-109); GFR ESTIMATE (CALCULATED) 37 mL/min/; GLUCOSE 148 mg/dL (70-99); MAGNESIUM 1.6 mg/dl (1.3-2.7); SAMPLE HEMOLYSIS CHECK 0; SAMPLE ICTERIC CHECK 0; SAMPLE LIPEMIA CHECK 0; SODIUM 136 MEQ/L (136-147); UREA NITROGEN (BUN) 19 mg/dL (9-23)
[2017-05-01 07:49] LABS: VANCOMYCIN, TROUGH 21.6 MCG/ML (10-20)
[2017-05-01 13:18] LABS: HEMATOCRIT 27.9 % (36.0-46.0); MCH 28.2 PG (29.0-34.0); MCHC 31.2 G/DL (30.0-36.0); MCV 90.3 FL (83-99); MEAN PLAT.VOLUME 11.1 uM^3 (9.5-12.4); PLATELET COUNT 523 K/uL (156-360); RBC DIS.WIDTH-CV 15.8 % (11.8-14.6); RBC DIS.WIDTH-SD 51.4 % (39-53); RED BLOOD COUNT 3.09 M/uL (3.80-5.20); WHITE BLOOD COUNT 14.2 K/uL (4.1-10.2)
[2017-05-01 16:28] LABS: POINT-OF-CARE METER ID UU13113725
[2017-05-01 18:35] LABS: HEMATOCRIT 26.6 % (36.0-46.0); MCH 28.1 PG (29.0-34.0); MCHC 31.2 G/DL (30.0-36.0); MCV 90.2 FL (83-99); MEAN PLAT.VOLUME 11.4 uM^3 (9.5-12.4); PLATELET COUNT 535 K/uL (156-360); RBC DIS.WIDTH-CV 15.7 % (11.8-14.6); RBC DIS.WIDTH-SD 51.1 % (39-53); RED BLOOD COUNT 2.95 M/uL (3.80-5.20); WHITE BLOOD COUNT 14.7 K/uL (4.1-10.2)
[2017-05-01 23:15] LABS: HEMATOCRIT 26.2 % (36.0-46.0); MCH 27.9 PG (29.0-34.0); MCHC 30.9 G/DL (30.0-36.0); MCV 90.3 FL (83-99); PLATELET COUNT 496 K/uL (156-360); RBC DIS.WIDTH-CV 15.9 % (11.8-14.6); RBC DIS.WIDTH-SD 52.1 % (39-53); WHITE BLOOD COUNT 13.3 K/uL (4.1-10.2)
[2017-05-02] VITALS (8 sets, daily range): BP systolic 123–182; BP diastolic 59–82
[2017-05-02 08:15] LABS: BASOPHIL COUNT 0.1 K/uL (0-0.1); EOSINOPHIL (%) 5.8 % (0-5); EOSINOPHIL COUNT 0.8 K/uL (0-0.3); HEMATOCRIT 26.6 % (36.0-46.0); IMMATURE GRANULOCYTE (%) 0.9 % (0.0-0.7); IMMATURE GRANULOCYTE COUNT 0.1 K/uL; INSTRUMENT ABS NEUTROPHIL CT 9.2 K/uL; LYMPHOCYTE COUNT 2.2 K/uL (1.0-2.8); MCH 28.5 PG (29.0-34.0); MCHC 30.8 G/DL (30.0-36.0); MCV 92.4 FL (83-99); MEAN PLAT.VOLUME 11.3 uM^3 (9.5-12.4); MONOCYTE (%) 9.7 % (3-12); MONOCYTE COUNT 1.3 K/uL (0-0.8); NEUTROPHIL (%) 66.9 % (45-76); NEUTROPHIL COUNT 9.2 K/uL (1.8-6.4); PLATELET COUNT 527 K/uL (156-360); RBC DIS.WIDTH-CV 15.9 % (11.8-14.6); RBC DIS.WIDTH-SD 52.6 % (39-53); RED BLOOD COUNT 2.88 M/uL (3.80-5.20); WHITE BLOOD COUNT 13.8 K/uL (4.1-10.2)
[2017-05-02 09:10] LABS: ANION GAP 10 MEQ/L (2-14); CHLORIDE 99 MEQ/L (99-109); GFR ESTIMATE (CALCULATED) 39 mL/min/; GLUCOSE 200 mg/dL (70-99); MAGNESIUM 1.6 mg/dl (1.3-2.7); POTASSIUM 4.2 MEQ/L (3.7-5.4); SAMPLE HEMOLYSIS CHECK 0; SAMPLE ICTERIC CHECK 0; SAMPLE LIPEMIA CHECK 0; SODIUM 137 MEQ/L (136-147); UREA NITROGEN (BUN) 18 mg/dL (9-23)
[2017-05-02 14:28] LABS: HEMATOCRIT 25.8 % (36.0-46.0); MCH 29.1 PG (29.0-34.0); MCHC 31.4 G/DL (30.0-36.0); MCV 92.8 FL (83-99); MEAN PLAT.VOLUME 11.5 uM^3 (9.5-12.4); PLATELET COUNT 525 K/uL (156-360); RBC DIS.WIDTH-CV 15.9 % (11.8-14.6); RBC DIS.WIDTH-SD 53.8 % (39-53); RED BLOOD COUNT 2.78 M/uL (3.80-5.20); WHITE BLOOD COUNT 14.6 K/uL (4.1-10.2)
[2017-05-02 18:22] LABS: HEMATOCRIT 30.3 % (36.0-46.0); MCH 28.2 PG (29.0-34.0); MCHC 30.7 G/DL (30.0-36.0); MCV 91.8 FL (83-99); PLATELET COUNT 536 K/uL (156-360); RBC DIS.WIDTH-CV 15.6 % (11.8-14.6); RBC DIS.WIDTH-SD 51.8 % (39-53); WHITE BLOOD COUNT 14.8 K/uL (4.1-10.2)
[2017-05-03 01:10] LABS: HEMATOCRIT 26.5 % (36.0-46.0); MCH 28.5 PG (29.0-34.0); MCHC 31.3 G/DL (30.0-36.0); MCV 91.1 FL (83-99); MEAN PLAT.VOLUME 11.5 uM^3 (9.5-12.4); PLATELET COUNT 525 K/uL (156-360); RBC DIS.WIDTH-CV 15.8 % (11.8-14.6); RBC DIS.WIDTH-SD 51.4 % (39-53); RED BLOOD COUNT 2.91 M/uL (3.80-5.20); WHITE BLOOD COUNT 17.3 K/uL (4.1-10.2)
[2017-05-03 06:16] LABS: POINT-OF-CARE METER ID UU13113725
[2017-05-03 06:50] LABS: BASOPHIL COUNT 0.1 K/uL (0-0.1); EOSINOPHIL (%) 2.8 % (0-5); EOSINOPHIL COUNT 0.4 K/uL (0-0.3); IMMATURE GRANULOCYTE COUNT 0.1 K/uL; LYMPHOCYTE COUNT 1.5 K/uL (1.0-2.8); MCH 28.2 PG (29.0-34.0); MCHC 31.5 G/DL (30.0-36.0); MCV 89.3 FL (83-99); MEAN PLAT.VOLUME 11.6 uM^3 (9.5-12.4); MONOCYTE (%) 7.3 % (3-12); NEUTROPHIL (%) 78.2 % (45-76); PLATELET COUNT 497 K/uL (156-360); RBC DIS.WIDTH-CV 15.7 % (11.8-14.6); RED BLOOD COUNT 2.91 M/uL (3.80-5.20); WHITE BLOOD COUNT 14.1 K/uL (4.1-10.2)
[2017-05-03 07:17] LABS: ANION GAP 11 MEQ/L (2-14); CHLORIDE 100 MEQ/L (99-109); GFR ESTIMATE (CALCULATED) 43 mL/min/; GLUCOSE 273 mg/dL (70-99); MAGNESIUM 1.6 mg/dl (1.3-2.7); POTASSIUM 4.6 MEQ/L (3.7-5.4); SAMPLE HEMOLYSIS CHECK 0; SAMPLE ICTERIC CHECK 0; SAMPLE LIPEMIA CHECK 0; SODIUM 137 MEQ/L (136-147); UREA NITROGEN (BUN) 19 mg/dL (9-23)
[2017-05-03 07:29] VITALS: BP 158/68
[2017-05-03 11:23] LABS: POINT-OF-CARE METER ID UU13113725
[2017-05-03 12:42] LABS: HEMATOCRIT 29.7 % (36.0-46.0); MCH 28.3 PG (29.0-34.0); MCHC 30.6 G/DL (30.0-36.0); MCV 92.5 FL (83-99); MEAN PLAT.VOLUME 11.3 uM^3 (9.5-12.4); PLATELET COUNT 478 K/uL (156-360); RBC DIS.WIDTH-CV 15.7 % (11.8-14.6); RBC DIS.WIDTH-SD 52.9 % (39-53); RED BLOOD COUNT 3.21 M/uL (3.80-5.20); WHITE BLOOD COUNT 12.5 K/uL (4.1-10.2)
[2017-05-03 15:06] VITALS: BP 145/67
[2017-05-03 15:21] VITALS: BP 134/63
[2017-05-03 18:40] LABS: HEMATOCRIT 29.5 % (36.0-46.0); MCH 28.3 PG (29.0-34.0); MCHC 30.8 G/DL (30.0-36.0); MCV 91.9 FL (83-99); MEAN PLAT.VOLUME 11.2 uM^3 (9.5-12.4); PLATELET COUNT 570 K/uL (156-360); RBC DIS.WIDTH-CV 15.6 % (11.8-14.6); RBC DIS.WIDTH-SD 51.8 % (39-53); RED BLOOD COUNT 3.21 M/uL (3.80-5.20); WHITE BLOOD COUNT 13.2 K/uL (4.1-10.2)
[2017-05-03 21:56] LABS: POINT-OF-CARE METER ID UU13113725
[2017-05-04 00:40] VITALS: BP 132/61
[2017-05-04 01:03] LABS: HEMATOCRIT 27.8 % (36.0-46.0); MCH 28.1 PG (29.0-34.0); MCHC 30.9 G/DL (30.0-36.0); MCV 90.8 FL (83-99); MEAN PLAT.VOLUME 11.4 uM^3 (9.5-12.4); PLATELET COUNT 548 K/uL (156-360); RBC DIS.WIDTH-CV 15.6 % (11.8-14.6); RBC DIS.WIDTH-SD 51.3 % (39-53); RED BLOOD COUNT 3.06 M/uL (3.80-5.20); WHITE BLOOD COUNT 11.5 K/uL (4.1-10.2)
[2017-05-04 05:51] LABS: POINT-OF-CARE METER ID UU13113725
[2017-05-04 07:55] VITALS: BP 177/79
[2017-05-04 08:01] LABS: BASOPHIL COUNT 0.1 K/uL (0-0.1); EOSINOPHIL (%) 8.5 % (0-5); EOSINOPHIL COUNT 0.9 K/uL (0-0.3); HEMATOCRIT 28.2 % (36.0-46.0); IMMATURE GRANULOCYTE (%) 0.4 % (0.0-0.7); INSTRUMENT ABS NEUTROPHIL CT 5.9 K/uL; LYMPHOCYTE COUNT 2.3 K/uL (1.0-2.8); MCH 27.8 PG (29.0-34.0); MCHC 30.5 G/DL (30.0-36.0); MCV 91.3 FL (83-99); MONOCYTE (%) 10.6 % (3-12); MONOCYTE COUNT 1.1 K/uL (0-0.8); NEUTROPHIL (%) 57.7 % (45-76); NEUTROPHIL COUNT 5.9 K/uL (1.8-6.4); RBC DIS.WIDTH-CV 15.8 % (11.8-14.6); RBC DIS.WIDTH-SD 51.6 % (39-53); RED BLOOD COUNT 3.09 M/uL (3.80-5.20); WHITE BLOOD COUNT 10.3 K/uL (4.1-10.2)
[2017-05-04 08:10] LABS: MEAN PLAT.VOLUME 11.6 uM^3 (9.5-12.4); PLATELET COUNT 627 K/uL (156-360)
[2017-05-04 08:33] LABS: CHLORIDE 98 mEq/L (99-109); POTASSIUM 4.4 mEq/L (3.7-5.4); SODIUM 139 mEq/L (136-147)
[2017-05-04 08:35] LABS: GLUCOSE 166 mg/dL (70-99); MAGNESIUM 1.5 mg/dL (1.3-2.7)
[2017-05-04 08:37] LABS: ANION GAP 14 MEQ/L (2-14)
[2017-05-04 08:39] LABS: GFR ESTIMATE (CALCULATED) 39 mL/min/
[2017-05-04 08:40] LABS: UREA NITROGEN (BUN) 17 mg/dL (9-23)
[2017-05-04 12:43] LABS: HEMATOCRIT 29.2 % (36.0-46.0); MCHC 30.8 G/DL (30.0-36.0); MCV 90.7 FL (83-99); MEAN PLAT.VOLUME 11.1 uM^3 (9.5-12.4); PLATELET COUNT 543 K/uL (156-360); RBC DIS.WIDTH-CV 15.5 % (11.8-14.6); RBC DIS.WIDTH-SD 50.8 % (39-53); RED BLOOD COUNT 3.22 M/uL (3.80-5.20); WHITE BLOOD COUNT 11.5 K/uL (4.1-10.2)
[2017-05-04 13:02] LABS: VANCOMYCIN, TROUGH 19.5 MCG/ML (10-20)
[2017-05-04 16:37] LABS: POINT-OF-CARE METER ID UU13113725
[2017-05-04 17:45] VITALS: BP 179/75
[2017-05-04 17:45] LABS: HEMATOCRIT 28.4 % (36.0-46.0); MCH 28.7 PG (29.0-34.0); MCHC 31.7 G/DL (30.0-36.0); MCV 90.4 FL (83-99); MEAN PLAT.VOLUME 11.1 uM^3 (9.5-12.4); PLATELET COUNT 570 K/uL (156-360); RBC DIS.WIDTH-CV 15.6 % (11.8-14.6); RBC DIS.WIDTH-SD 50.2 % (39-53); RED BLOOD COUNT 3.14 M/uL (3.80-5.20); WHITE BLOOD COUNT 10.6 K/uL (4.1-10.2)
[2017-05-04 23:35] VITALS: BP 132/68
[2017-05-04 23:38] LABS: HEMATOCRIT 27.7 % (36.0-46.0); MCH 28.2 PG (29.0-34.0); MCHC 31.4 G/DL (30.0-36.0); MCV 89.6 FL (83-99); PLATELET COUNT 549 K/uL (156-360); RBC DIS.WIDTH-CV 15.5 % (11.8-14.6); RBC DIS.WIDTH-SD 49.9 % (39-53); RED BLOOD COUNT 3.09 M/uL (3.80-5.20); WHITE BLOOD COUNT 11.6 K/uL (4.1-10.2)
[2017-05-05 06:33] LABS: BASOPHIL COUNT 0.1 K/uL (0-0.1); EOSINOPHIL (%) 6.1 % (0-5); EOSINOPHIL COUNT 0.7 K/uL (0-0.3); HEMATOCRIT 27.2 % (36.0-46.0); IMMATURE GRANULOCYTE (%) 0.5 % (0.0-0.7); IMMATURE GRANULOCYTE COUNT 0.1 K/uL; INSTRUMENT ABS NEUTROPHIL CT 6.9 K/uL; LYMPHOCYTE COUNT 2.2 K/uL (1.0-2.8); MCH 27.9 PG (29.0-34.0); MCHC 30.9 G/DL (30.0-36.0); MCV 90.4 FL (83-99); MEAN PLAT.VOLUME 11.1 uM^3 (9.5-12.4); MONOCYTE COUNT 1.4 K/uL (0-0.8); NEUTROPHIL (%) 61.8 % (45-76); NEUTROPHIL COUNT 6.9 K/uL (1.8-6.4); PLATELET COUNT 574 K/uL (156-360); RBC DIS.WIDTH-CV 15.5 % (11.8-14.6); RBC DIS.WIDTH-SD 51.2 % (39-53); RED BLOOD COUNT 3.01 M/uL (3.80-5.20); WHITE BLOOD COUNT 11.2 K/uL (4.1-10.2)
[2017-05-05 07:02] LABS: POINT-OF-CARE METER ID UU13113725
[2017-05-05 07:10] LABS: ANION GAP 13 MEQ/L (2-14); CHLORIDE 97 MEQ/L (99-109); GFR ESTIMATE (CALCULATED) 43 mL/min/; GLUCOSE 163 mg/dL (70-99); MAGNESIUM 1.4 mg/dl (1.3-2.7); POTASSIUM 3.6 MEQ/L (3.7-5.4); SAMPLE HEMOLYSIS CHECK 0; SAMPLE ICTERIC CHECK 0; SAMPLE LIPEMIA CHECK 0; SODIUM 139 MEQ/L (136-147); UREA NITROGEN (BUN) 17 mg/dL (9-23)
[2017-05-05 07:56] VITALS: BP 145/65
[2017-05-05 15:23] LABS: HEMATOCRIT 28.6 % (36.0-46.0); MCV 93.2 FL (83-99)
[2017-05-05 18:21] LABS: HEMATOCRIT 24.7 % (36.0-46.0); MCH 28.5 PG (29.0-34.0); MCHC 31.2 G/DL (30.0-36.0); MCV 91.5 FL (83-99); MEAN PLAT.VOLUME 11.4 uM^3 (9.5-12.4); PLATELET COUNT 494 K/uL (156-360); RBC DIS.WIDTH-CV 15.7 % (11.8-14.6); RBC DIS.WIDTH-SD 51.7 % (39-53); WHITE BLOOD COUNT 25.3 K/uL (4.1-10.2)
[2017-05-05 19:47] VITALS: BP 105/56
[2017-05-05 21:12] LABS: POINT-OF-CARE METER ID UU13113725
[2017-05-05 23:39] VITALS: BP 143/65
[2017-05-06 07:03] LABS: POINT-OF-CARE METER ID UU13113725
[2017-05-06 07:46] VITALS: BP 145/61
[2017-05-06 09:30] LABS: ANION GAP 9 MEQ/L (2-14); CHLORIDE 99 MEQ/L (99-109); MAGNESIUM 1.3 mg/dl (1.3-2.7); POTASSIUM 3.9 MEQ/L (3.7-5.4); SAMPLE HEMOLYSIS CHECK 0; SAMPLE ICTERIC CHECK 0; SAMPLE LIPEMIA CHECK 0; SODIUM 139 MEQ/L (136-147)
[2017-05-06 09:32] LABS: BASOPHIL COUNT 0.1 K/uL (0-0.1); EOSINOPHIL (%) 2.4 % (0-5); EOSINOPHIL COUNT 0.3 K/uL (0-0.3); HEMATOCRIT 22.3 % (36.0-46.0); IMMATURE GRANULOCYTE (%) 0.6 % (0.0-0.7); IMMATURE GRANULOCYTE COUNT 0.1 K/uL; INSTRUMENT ABS NEUTROPHIL CT 11.4 K/uL; LYMPHOCYTE COUNT 1.1 K/uL (1.0-2.8); MCH 28.7 PG (29.0-34.0); MCHC 31.8 G/DL (30.0-36.0); MCV 90.3 FL (83-99); MONOCYTE (%) 7.2 % (3-12); NEUTROPHIL (%) 81.2 % (45-76); NEUTROPHIL COUNT 11.4 K/uL (1.8-6.4); RBC DIS.WIDTH-CV 15.6 % (11.8-14.6); RBC DIS.WIDTH-SD 50.9 % (39-53); RED BLOOD COUNT 2.47 M/uL (3.80-5.20)
[2017-05-06 09:39] LABS: GFR ESTIMATE (CALCULATED) 43 mL/min/; UREA NITROGEN (BUN) 17 mg/dL (9-23)
[2017-05-06 09:43] LABS: GLUCOSE 120 mg/dL (70-99)
[2017-05-06 10:48] LABS: MEAN PLAT.VOLUME 11.4 uM^3 (9.5-12.4); PLATELET COUNT 463 K/uL (156-360)
[2017-05-06 11:54] LABS: POINT-OF-CARE METER ID UU13113725
[2017-05-06 12:05] VITALS: BP 122/62
[2017-05-06 15:02] VITALS: BP 137/64
[2017-05-06 16:35] VITALS: BP 142/72
[2017-05-06 17:35] VITALS: BP 173/73
[2017-05-06 17:37] LABS: POINT-OF-CARE METER ID UU13113725
[2017-05-06 18:08] LABS: POINT-OF-CARE METER ID UU13113725
[2017-05-06 18:35] VITALS: BP 187/74
[2017-05-06 21:34] LABS: POINT-OF-CARE METER ID UU13113725
[2017-05-07 06:18] VITALS: BP 122/62
[2017-05-07 06:18] LABS: ANION GAP 13 MEQ/L (2-14); CHLORIDE 100 MEQ/L (99-109); GFR ESTIMATE (CALCULATED) 39 mL/min/; GLUCOSE 100 mg/dL (70-99); MAGNESIUM 1.4 mg/dl (1.3-2.7); POTASSIUM 4.3 MEQ/L (3.7-5.4); SAMPLE HEMOLYSIS CHECK 0; SAMPLE ICTERIC CHECK 0; SAMPLE LIPEMIA CHECK 0; SODIUM 140 MEQ/L (136-147); UREA NITROGEN (BUN) 19 mg/dL (9-23)
[2017-05-07 06:59] LABS: POINT-OF-CARE METER ID UU13113725
[2017-05-07 07:24] VITALS: BP 116/61
[2017-05-07 08:54] LABS: BASOPHIL COUNT 0.1 K/uL (0-0.1); EOSINOPHIL (%) 3.1 % (0-5); EOSINOPHIL COUNT 0.5 K/uL (0-0.3); HEMATOCRIT 25.2 % (36.0-46.0); IMMATURE GRANULOCYTE (%) 0.8 % (0.0-0.7); IMMATURE GRANULOCYTE COUNT 0.1 K/uL; INSTRUMENT ABS NEUTROPHIL CT 10.5 K/uL; LYMPHOCYTE COUNT 1.8 K/uL (1.0-2.8); MCH 29.1 PG (29.0-34.0); MCHC 32.1 G/DL (30.0-36.0); MCV 90.6 FL (83-99); MEAN PLAT.VOLUME 11.4 uM^3 (9.5-12.4); MONOCYTE (%) 11.5 % (3-12); MONOCYTE COUNT 1.7 K/uL (0-0.8); NEUTROPHIL (%) 71.6 % (45-76); NEUTROPHIL COUNT 10.5 K/uL (1.8-6.4); PLATELET COUNT 439 K/uL (156-360); RBC DIS.WIDTH-CV 15.9 % (11.8-14.6); RBC DIS.WIDTH-SD 52.7 % (39-53); RED BLOOD COUNT 2.78 M/uL (3.80-5.20); WHITE BLOOD COUNT 14.7 K/uL (4.1-10.2)
[2017-05-07 12:03] LABS: POINT-OF-CARE METER ID UU13113725
[2017-05-07 12:15] VITALS: BP 138/71
[2017-05-07 15:15] VITALS: BP 118/63
[2017-05-07 16:45] LABS: POINT-OF-CARE METER ID UU13113725
[2017-05-07 21:38] LABS: POINT-OF-CARE METER ID UU13113725
[2017-05-08 00:05] VITALS: BP 142/71
[2017-05-08 05:53] LABS: POINT-OF-CARE METER ID UU13113725
[2017-05-08 07:09] VITALS: BP 140/70
[2017-05-08 08:31] LABS: BASOPHIL COUNT 0.1 K/uL (0-0.1); EOSINOPHIL (%) 2.6 % (0-5); EOSINOPHIL COUNT 0.3 K/uL (0-0.3); IMMATURE GRANULOCYTE (%) 0.9 % (0.0-0.7); IMMATURE GRANULOCYTE COUNT 0.1 K/uL; INSTRUMENT ABS NEUTROPHIL CT 7.8 K/uL; LYMPHOCYTE COUNT 2.2 K/uL (1.0-2.8); MCH 27.9 PG (29.0-34.0); MCHC 31.2 G/DL (30.0-36.0); MCV 89.7 FL (83-99); MEAN PLAT.VOLUME 11.5 uM^3 (9.5-12.4); MONOCYTE (%) 10.9 % (3-12); MONOCYTE COUNT 1.3 K/uL (0-0.8); NEUTROPHIL (%) 66.2 % (45-76); NEUTROPHIL COUNT 7.8 K/uL (1.8-6.4); NRBC (%) 0.2 /100 WBC (0-0); PLATELET COUNT 471 K/uL (156-360); RBC DIS.WIDTH-CV 15.8 % (11.8-14.6); RBC DIS.WIDTH-SD 51.6 % (39-53); WHITE BLOOD COUNT 11.7 K/uL (4.1-10.2)
[2017-05-08 11:36] LABS: POINT-OF-CARE METER ID UU13113725
[2017-05-08 15:10] VITALS: BP 135/69
[2017-05-08 17:08] LABS: POINT-OF-CARE METER ID UU13113725
[2017-05-08 20:55] LABS: POINT-OF-CARE METER ID UU13113725
[2017-05-08 23:54] VITALS: BP 102/54
[2017-05-09 06:02] LABS: POINT-OF-CARE METER ID UU13113725
[2017-05-09 07:05] VITALS: BP 101/50
[2017-05-09 07:11] LABS: BASOPHIL COUNT 0.1 K/uL (0-0.1); EOSINOPHIL (%) 5.8 % (0-5); EOSINOPHIL COUNT 0.8 K/uL (0-0.3); IMMATURE GRANULOCYTE (%) 0.7 % (0.0-0.7); IMMATURE GRANULOCYTE COUNT 0.1 K/uL; INSTRUMENT ABS NEUTROPHIL CT 7.4 K/uL; LYMPHOCYTE COUNT 3.5 K/uL (1.0-2.8); MCH 28.7 PG (29.0-34.0); MCHC 31.2 G/DL (30.0-36.0); MCV 91.9 FL (83-99); MONOCYTE (%) 11.3 % (3-12); MONOCYTE COUNT 1.5 K/uL (0-0.8); NEUTROPHIL (%) 55.7 % (45-76); NEUTROPHIL COUNT 7.4 K/uL (1.8-6.4); NRBC (%) 0.3 /100 WBC (0-0); PLATELET COUNT 458 K/uL (156-360); RBC DIS.WIDTH-CV 15.9 % (11.8-14.6); RBC DIS.WIDTH-SD 53.5 % (39-53); RED BLOOD COUNT 2.72 M/uL (3.80-5.20); WHITE BLOOD COUNT 13.3 K/uL (4.1-10.2)
[2017-05-09 15:24] VITALS: BP 104/55
[2017-05-09 21:12] LABS: POINT-OF-CARE METER ID UU13113725
[2017-05-09 23:32] VITALS: BP 113/54
[2017-05-10 06:36] LABS: BASOPHIL COUNT 0.1 K/uL (0-0.1); EOSINOPHIL COUNT 0.5 K/uL (0-0.3); HEMATOCRIT 24.4 % (36.0-46.0); IMMATURE GRANULOCYTE (%) 0.5 % (0.0-0.7); IMMATURE GRANULOCYTE COUNT 0.1 K/uL; INSTRUMENT ABS NEUTROPHIL CT 7.2 K/uL; LYMPHOCYTE COUNT 3.9 K/uL (1.0-2.8); MCH 28.8 PG (29.0-34.0); MCHC 31.1 G/DL (30.0-36.0); MCV 92.4 FL (83-99); MEAN PLAT.VOLUME 12.3 uM^3 (9.5-12.4); MONOCYTE (%) 11.2 % (3-12); MONOCYTE COUNT 1.5 K/uL (0-0.8); NEUTROPHIL (%) 54.2 % (45-76); NEUTROPHIL COUNT 7.2 K/uL (1.8-6.4); NRBC (%) 0.5 /100 WBC (0-0); PLATELET COUNT 430 K/uL (156-360); RBC DIS.WIDTH-CV 16.1 % (11.8-14.6); RBC DIS.WIDTH-SD 53.4 % (39-53); RED BLOOD COUNT 2.64 M/uL (3.80-5.20); WHITE BLOOD COUNT 13.4 K/uL (4.1-10.2)
[2017-05-10 08:07] VITALS: BP 98/51
[2017-05-10 12:08] LABS: POINT-OF-CARE METER ID UU13113725
[2017-05-10 17:12] VITALS: BP 124/61
[2017-05-10 21:39] LABS: POINT-OF-CARE METER ID UU13113725
[2017-05-10 22:31] VITALS: BP 124/60
[2017-05-11] VITALS: BP 126/59
[2017-05-11 06:42] LABS: POINT-OF-CARE METER ID UU13113725
[2017-05-11 07:08] LABS: BASOPHIL COUNT 0.1 K/uL (0-0.1); EOSINOPHIL (%) 3.6 % (0-5); EOSINOPHIL COUNT 0.5 K/uL (0-0.3); HEMATOCRIT 25.2 % (36.0-46.0); IMMATURE GRANULOCYTE (%) 0.5 % (0.0-0.7); IMMATURE GRANULOCYTE COUNT 0.1 K/uL; INSTRUMENT ABS NEUTROPHIL CT 8.4 K/uL; LYMPHOCYTE COUNT 3.5 K/uL (1.0-2.8); MCH 29.2 PG (29.0-34.0); MCHC 31.3 G/DL (30.0-36.0); MEAN PLAT.VOLUME 12.8 uM^3 (9.5-12.4); MONOCYTE (%) 10.8 % (3-12); MONOCYTE COUNT 1.5 K/uL (0-0.8); NEUTROPHIL (%) 59.5 % (45-76); NEUTROPHIL COUNT 8.4 K/uL (1.8-6.4); NRBC (%) 0.1 /100 WBC (0-0); PLATELET COUNT 437 K/uL (156-360); RBC DIS.WIDTH-CV 16.6 % (11.8-14.6); RBC DIS.WIDTH-SD 53.6 % (39-53); RED BLOOD COUNT 2.71 M/uL (3.80-5.20); WHITE BLOOD COUNT 14.1 K/uL (4.1-10.2)
[2017-05-11 07:54] VITALS: BP 129/61
[2017-05-11 12:25] LABS: POINT-OF-CARE METER ID UU13113725
[2017-05-11 17:47] VITALS: BP 146/67
[2017-05-11 20:48] VITALS: BP 142/69
[2017-05-11 21:48] LABS: POINT-OF-CARE METER ID UU13113725
[2017-05-11 22:30] VITALS: BP 143/74
[2017-05-12 00:05] VITALS: BP 144/69
[2017-05-12 06:55] VITALS: BP 128/62
[2017-05-12 07:32] LABS: BASOPHIL COUNT 0.1 K/uL (0-0.1); EOSINOPHIL (%) 6.7 % (0-5); EOSINOPHIL COUNT 0.9 K/uL (0-0.3); HEMATOCRIT 29.1 % (36.0-46.0); IMMATURE GRANULOCYTE (%) 0.5 % (0.0-0.7); IMMATURE GRANULOCYTE COUNT 0.1 K/uL; LYMPHOCYTE COUNT 3.4 K/uL (1.0-2.8); MCH 28.8 PG (29.0-34.0); MCHC 30.2 G/DL (30.0-36.0); MCV 95.1 FL (83-99); MEAN PLAT.VOLUME 12.7 uM^3 (9.5-12.4); MONOCYTE (%) 10.5 % (3-12); MONOCYTE COUNT 1.3 K/uL (0-0.8); NEUTROPHIL (%) 55.2 % (45-76); NRBC (%) 0.2 /100 WBC (0-0); PLATELET COUNT 473 K/uL (156-360); RBC DIS.WIDTH-CV 17.1 % (11.8-14.6); RBC DIS.WIDTH-SD 56.1 % (39-53); RED BLOOD COUNT 3.06 M/uL (3.80-5.20); WHITE BLOOD COUNT 12.7 K/uL (4.1-10.2)
[2017-05-12 10:56] LABS: POINT-OF-CARE METER ID UU13113725
[2017-05-12 15:58] VITALS: BP 134/63
[2017-05-12 21:38] VITALS: BP 145/69
[2017-05-13] VITALS: BP 130/59
[2017-05-13 06:11] LABS: BASOPHIL COUNT 0.1 K/uL (0-0.1); EOSINOPHIL (%) 6.4 % (0-5); EOSINOPHIL COUNT 0.7 K/uL (0-0.3); HEMATOCRIT 28.5 % (36.0-46.0); IMMATURE GRANULOCYTE (%) 0.5 % (0.0-0.7); IMMATURE GRANULOCYTE COUNT 0.1 K/uL; INSTRUMENT ABS NEUTROPHIL CT 6.5 K/uL; LYMPHOCYTE COUNT 2.9 K/uL (1.0-2.8); MCH 29.1 PG (29.0-34.0); MCHC 31.2 G/DL (30.0-36.0); MCV 93.1 FL (83-99); MEAN PLAT.VOLUME 12.7 uM^3 (9.5-12.4); NEUTROPHIL (%) 57.9 % (45-76); NEUTROPHIL COUNT 6.5 K/uL (1.8-6.4); PLATELET COUNT 490 K/uL (156-360); RBC DIS.WIDTH-CV 16.9 % (11.8-14.6); RBC DIS.WIDTH-SD 55.4 % (39-53); RED BLOOD COUNT 3.06 M/uL (3.80-5.20); WHITE BLOOD COUNT 11.3 K/uL (4.1-10.2)
[2017-05-13 07:59] LABS: INTER. NORMALIZED RATIO 1.2; PROTHROMBIN TIME 12.4 (9.2-11.2); PTT 30.5 (25-32)
[2017-05-13 08:00] VITALS: BP 141/65
[2017-05-13 12:52] LABS: TYPE OF FLUID PLEURAL
[2017-05-13 13:52] LABS: BODY FLUID EOSINOPHILS 2 % (0-25); MONO RAW COUNT 66; MONONUCLEAR WBC'S 66 %; POLY RAW COUNT 32; POLYNUCLEAR WBC'S 32 % (0-25)
[2017-05-13 14:06] LABS: BODY FLUID LDH 65 IU/L
[2017-05-13 14:07] LABS: BODY FLUID PROTEIN 1.4 G/DL
[2017-05-13 14:09] LABS: BODY FLUID RBC'S 1000 /MM^3 (0-100); BODY FLUID WBC'S 829 /MM^3 (0-500)
[2017-05-13 16:11] VITALS: BP 140/68
[2017-05-13 23:27] VITALS: BP 132/68
[2017-05-14 05:40] LABS: POINT-OF-CARE METER ID UU13113725
[2017-05-14 06:58] LABS: BASOPHIL COUNT 0.1 K/uL (0-0.1); EOSINOPHIL COUNT 0.5 K/uL (0-0.3); HEMATOCRIT 28.7 % (36.0-46.0); IMMATURE GRANULOCYTE (%) 0.4 % (0.0-0.7); INSTRUMENT ABS NEUTROPHIL CT 6.4 K/uL; LYMPHOCYTE COUNT 2.4 K/uL (1.0-2.8); MCH 28.5 PG (29.0-34.0); MCHC 30.7 G/DL (30.0-36.0); MCV 92.9 FL (83-99); MEAN PLAT.VOLUME 12.3 uM^3 (9.5-12.4); MONOCYTE (%) 10.4 % (3-12); MONOCYTE COUNT 1.1 K/uL (0-0.8); NEUTROPHIL (%) 60.8 % (45-76); NEUTROPHIL COUNT 6.4 K/uL (1.8-6.4); PLATELET COUNT 473 K/uL (156-360); RBC DIS.WIDTH-CV 17.1 % (11.8-14.6); RBC DIS.WIDTH-SD 55.8 % (39-53); RED BLOOD COUNT 3.09 M/uL (3.80-5.20); WHITE BLOOD COUNT 10.5 K/uL (4.1-10.2)
[2017-05-14 08:09] LABS: POINT-OF-CARE METER ID UU13113725
[2017-05-14 09:06] VITALS: BP 135/65
[2017-05-14 16:29] LABS: POINT-OF-CARE METER ID UU13113725
[2017-05-14 17:03] LABS: POINT-OF-CARE METER ID UU13113725
[2017-05-14 17:28] VITALS: BP 147/67
[2017-05-14 18:03] LABS: POINT-OF-CARE METER ID UU13113725
[2017-05-14 20:56] LABS: POINT-OF-CARE METER ID UU13113725
[2017-05-14 23:16] VITALS: BP 124/59
[2017-05-15 07:05] LABS: BASOPHIL COUNT 0.1 K/uL (0-0.1); EOSINOPHIL (%) 4.1 % (0-5); EOSINOPHIL COUNT 0.5 K/uL (0-0.3); HEMATOCRIT 31.3 % (36.0-46.0); IMMATURE GRANULOCYTE (%) 0.6 % (0.0-0.7); IMMATURE GRANULOCYTE COUNT 0.1 K/uL; INSTRUMENT ABS NEUTROPHIL CT 7.5 K/uL; LYMPHOCYTE COUNT 2.4 K/uL (1.0-2.8); MCH 28.7 PG (29.0-34.0); MCHC 30.7 G/DL (30.0-36.0); MCV 93.4 FL (83-99); MEAN PLAT.VOLUME 12.9 uM^3 (9.5-12.4); MONOCYTE (%) 11.5 % (3-12); MONOCYTE COUNT 1.4 K/uL (0-0.8); NEUTROPHIL (%) 62.8 % (45-76); NEUTROPHIL COUNT 7.5 K/uL (1.8-6.4); PLATELET COUNT 497 K/uL (156-360); RBC DIS.WIDTH-CV 17.1 % (11.8-14.6); RBC DIS.WIDTH-SD 57.4 % (39-53); RED BLOOD COUNT 3.35 M/uL (3.80-5.20); WHITE BLOOD COUNT 11.9 K/uL (4.1-10.2)
[2017-05-15 10:17] VITALS: BP 129/60
[2017-05-16 00:17] VITALS: BP 131/63
[2017-05-16 05:55] LABS: POINT-OF-CARE METER ID UU13113725
[2017-05-16 06:32] LABS: HEMATOCRIT 33.9 % (36.0-46.0); MCV 91.4 FL (83-99)
[2017-05-16 07:30] VITALS: BP 134/69
[2017-05-16 15:58] VITALS: BP 130/62
[2017-05-16 23:26] LABS: BODY FLUID PH 8.2 (())
[2017-05-17 00:22] VITALS: BP 132/69
[2017-05-17 07:05] VITALS: BP 123/60
[2017-05-17 07:11] LABS: HEMATOCRIT 31.7 % (36.0-46.0); MCV 91.6 FL (83-99)
[2017-05-17] MEDS ORDERED: AMITRIPTYLINE H50 MG PO (08:50)
[2017-05-17] MEDS ORDERED: FLUOXETINE HCL20 MG PO (08:51)
[2017-05-17] MEDS ORDERED: MIRTAZAPINE15 MG PO (08:51)
[2017-05-17] MEDS ORDERED: ALPRAZOLAM0.25 M2 PO (08:52)
[2017-05-17] MEDS ORDERED: HYDROMORPHONE HC2 MG PO (08:52)
[2017-05-17 15:58] VITALS: BP 131/58
[2017-05-18] VITALS (7 sets, daily range): BP systolic 94–136; BP diastolic 49–86
[2017-05-18 06:39] LABS: HEMATOCRIT 32.8 % (36.0-46.0); MCV 91.4 FL (83-99)
[2017-05-18 16:32] LABS: POINT-OF-CARE METER ID UU13113725
[2017-05-18 21:58] LABS: POINT-OF-CARE METER ID UU13113725
[2017-05-19 06:22] LABS: POINT-OF-CARE METER ID UU13113725
[2017-05-19 06:46] LABS: BASOPHIL COUNT 0.1 K/uL (0-0.1); EOSINOPHIL (%) 4.5 % (0-5); EOSINOPHIL COUNT 0.6 K/uL (0-0.3); HEMATOCRIT 27.2 % (36.0-46.0); IMMATURE GRANULOCYTE (%) 0.4 % (0.0-0.7); IMMATURE GRANULOCYTE COUNT 0.1 K/uL; INSTRUMENT ABS NEUTROPHIL CT 7.4 K/uL; LYMPHOCYTE COUNT 3.4 K/uL (1.0-2.8); MCH 27.7 PG (29.0-34.0); MCHC 29.8 G/DL (30.0-36.0); MCV 93.2 FL (83-99); MEAN PLAT.VOLUME 12.8 uM^3 (9.5-12.4); MONOCYTE (%) 10.9 % (3-12); MONOCYTE COUNT 1.4 K/uL (0-0.8); NEUTROPHIL (%) 56.9 % (45-76); NEUTROPHIL COUNT 7.4 K/uL (1.8-6.4); PLATELET COUNT 419 K/uL (156-360); RBC DIS.WIDTH-CV 16.2 % (11.8-14.6); RED BLOOD COUNT 2.92 M/uL (3.80-5.20)
[2017-05-19 07:10] VITALS: BP 105/49
[2017-05-19 11:49] LABS: POINT-OF-CARE METER ID UU13113725
[2017-05-19 16:08] LABS: POINT-OF-CARE METER ID UU13113725
[2017-05-19 16:12] VITALS: BP 111/56
[2017-05-19 21:05] LABS: POINT-OF-CARE METER ID UU13113725
[2017-05-19 22:51] VITALS: BP 116/58
[2017-05-20 06:49] LABS: HEMATOCRIT 28.1 % (36.0-46.0); MCV 92.4 FL (83-99)
[2017-05-20 07:12] VITALS: BP 116/55
[2017-05-20 11:37] LABS: POINT-OF-CARE METER ID UU13113725
[2017-05-20 15:58] VITALS: BP 128/58
[2017-05-21 06:50] VITALS: BP 138/66
[2017-05-21 07:27] LABS: POINT-OF-CARE METER ID UU13113725
[2017-05-21 07:46] LABS: HEMATOCRIT 23.6 % (36.0-46.0); MCV 90.4 FL (83-99)
[2017-05-21 11:38] LABS: POINT-OF-CARE METER ID UU13113725
[2017-05-22 00:11] VITALS: BP 105/52
[2017-05-22 07:12] VITALS: BP 120/56
[2017-05-22 07:32] LABS: HEMATOCRIT 23.6 % (36.0-46.0); MCV 90.8 FL (83-99)
[2017-05-22 15:05] VITALS: BP 122/57
[2017-05-22 21:46] VITALS: BP 118/60
[2017-05-22 23:13] VITALS: BP 134/65
[2017-05-23 05:54] LABS: BASOPHIL COUNT 0.1 K/uL (0-0.1); EOSINOPHIL (%) 7.6 % (0-5); EOSINOPHIL COUNT 0.8 K/uL (0-0.3); HEMATOCRIT 24.4 % (36.0-46.0); IMMATURE GRANULOCYTE (%) 0.4 % (0.0-0.7); INSTRUMENT ABS NEUTROPHIL CT 5.7 K/uL; LYMPHOCYTE COUNT 3.2 K/uL (1.0-2.8); MCHC 30.7 G/DL (30.0-36.0); MEAN PLAT.VOLUME 12.4 uM^3 (9.5-12.4); MONOCYTE (%) 10.7 % (3-12); MONOCYTE COUNT 1.2 K/uL (0-0.8); NEUTROPHIL (%) 51.9 % (45-76); NEUTROPHIL COUNT 5.7 K/uL (1.8-6.4); PLATELET COUNT 393 K/uL (156-360); RBC DIS.WIDTH-CV 15.8 % (11.8-14.6); RBC DIS.WIDTH-SD 52.1 % (39-53); RED BLOOD COUNT 2.68 M/uL (3.80-5.20); WHITE BLOOD COUNT 11.1 K/uL (4.1-10.2)
[2017-05-23 07:10] VITALS: BP 110/54
[2017-05-23 17:05] VITALS: BP 124/63
[2017-05-23 20:53] LABS: POINT-OF-CARE METER ID UU13113725
[2017-05-23 23:24] VITALS: BP 109/51
[2017-05-24 07:00] VITALS: BP 121/58
[2017-05-24 15:30] VITALS: BP 175/57
[2017-05-24 23:10] VITALS: BP 107/53
[2017-05-25 08:35] VITALS: BP 140/78
[2017-05-25 11:23] LABS: POINT-OF-CARE METER ID UU13113725
[2017-05-25 16:15] VITALS: BP 118/64
[2017-05-25 23:42] VITALS: BP 117/71
[2017-05-26 06:23] LABS: POINT-OF-CARE METER ID UU13113725
[2017-05-26 06:45] VITALS: BP 116/56
[2017-05-26 11:18] LABS: POINT-OF-CARE METER ID UU13113725
[2017-05-26 15:20] VITALS: BP 118/59
[2017-05-26] MEDS ORDERED: METRONIDAZOLE500 MG PO (15:32)
[2017-05-26] MEDS ORDERED: LINEZOLID600 MG PO (15:32)
[2017-05-26] MEDS ORDERED: LOVENOX40 MG/0.4 SC (15:33)
[2017-05-26 16:42] LABS: POINT-OF-CARE METER ID UU13113725
== END 2017-05-26 17:37 | disposition designated cancer center or children's hospital (05) | DRG 239 ==
LOC: SDC 14:41 → 5EAST 14:42 → 4EAST 14:42 → 2SOUTH 14:42 → 4WEST 14:42 → 4EAST 04-09 08:52 → 4WEST 04-14 13:39 → 4EAST 04-17 20:28 → 5EAST 05-01 12:06
PROVIDERS: Anesthesiology; Internal Medicine; Internal Medicine Gastroenterology; Internal Medicine Nephrology; Internal Medicine Pulmonary Disease; Nurse Practitioner Family; Psychiatry & Neurology Neurology; Radiology Diagnostic Radiology; Surgery; Surgery Surgical Critical Care
PROC: 041K0JH Bypass Right Femoral Artery to Right Femoral Artery with Synthetic Substitute, Open Approach (ICD-10-PCS; principal; 2017-04-05)
PROC: 04CK0ZZ Extirpation of Matter from Right Femoral Artery, Open Approach (ICD-10-PCS; principal; 2017-04-05)
PROC: 02HV33Z Insertion of Infusion Device into Superior Vena Cava, Percutaneous Approach (ICD-10-PCS; 2017-04-07)
PROC: B548ZZA Ultrasonography of Superior Vena Cava, Guidance (ICD-10-PCS; 2017-04-07)
PROC: 041K0JL Bypass Right Femoral Artery to Popliteal Artery with Synthetic Substitute, Open Approach (ICD-10-PCS; 2017-04-07)
PROC: 30233R1 Transfusion of Nonautologous Platelets into Peripheral Vein, Percutaneous Approach (ICD-10-PCS; 2017-04-07)
PROC: 0Y6H0Z1 Detachment at Right Lower Leg, High, Open Approach (ICD-10-PCS; 2017-04-11)
PROC: 30233N1 Transfusion of Nonautologous Red Blood Cells into Peripheral Vein, Percutaneous Approach (ICD-10-PCS; 2017-04-13)
PROC: 0DJ08ZZ Inspection of Upper Intestinal Tract, Via Natural or Artificial Opening Endoscopic (ICD-10-PCS; 2017-04-14)
PROC: 3E1H88Z Irrigation of Lower GI using Irrigating Substance, Via Natural or Artificial Opening Endoscopic (ICD-10-PCS; 2017-04-20)
PROC: 0DJD8ZZ Inspection of Lower Intestinal Tract, Via Natural or Artificial Opening Endoscopic (ICD-10-PCS; 2017-04-20)
PROC: 0Y6C0Z3 Detachment at Right Upper Leg, Low, Open Approach (ICD-10-PCS; 2017-04-29)
PROC: 041 Lower Arteries, Bypass (ICD-10-PCS; 2017-05-05)
PROC: 04PY0JZ Removal of Synthetic Substitute from Lower Artery, Open Approach (ICD-10-PCS; 2017-05-05)
PROC: 0JBL0ZZ Excision of Right Upper Leg Subcutaneous Tissue and Fascia, Open Approach (ICD-10-PCS; 2017-05-05)
PROC: 0W9B3ZZ Drainage of Left Pleural Cavity, Percutaneous Approach (ICD-10-PCS; 2017-05-13)
PROC: 0JBL0ZZ Excision of Right Upper Leg Subcutaneous Tissue and Fascia, Open Approach (ICD-10-PCS; 2017-05-18)
DX: E11.52 Type 2 diabetes mellitus with diabetic peripheral angiopathy with gangrene (principal); I70.261 Atherosclerosis of native arteries of extremities with gangrene, right leg; I74.3 Embolism and thrombosis of arteries of the lower extremities; E11.621 Type 2 diabetes mellitus with foot ulcer; L97.519 Non-pressure chronic ulcer of other part of right foot with unspecified severity; B95.62 Methicillin resistant Staphylococcus aureus infection as the cause of diseases classified elsewhere; N17.9 Acute kidney failure, unspecified; N14.1 Nephropathy induced by other drugs, medicaments and biological substances; T50.8X5A Adverse effect of diagnostic agents, initial encounter; G54.6 Phantom limb syndrome with pain; D62 Acute posthemorrhagic anemia; T81.30XA Disruption of wound, unspecified, initial encounter; T82.7XXA Infection and inflammatory reaction due to other cardiac and vascular devices, implants and grafts, initial encounter; L02.415 Cutaneous abscess of right lower limb; L03.115 Cellulitis of right lower limb; Y83.2 Surgical operation with anastomosis, bypass or graft as the cause of abnormal reaction of the patient, or of later complication, without mention of misadventure at the time of the procedure; I21.4 Non-ST elevation (NSTEMI) myocardial infarction; L89.150 Pressure ulcer of sacral region, unstageable; L89.320 Pressure ulcer of left buttock, unstageable; L89.620 Pressure ulcer of left heel, unstageable; K92.1 Melena; J90 Pleural effusion, not elsewhere classified; R09.02 Hypoxemia; R04.0 Epistaxis; B37.2 Candidiasis of skin and nail; Z91.19 Patient's noncompliance with other medical treatment and regimen; E11.42 Type 2 diabetes mellitus with diabetic polyneuropathy; I25.10 Atherosclerotic heart disease of native coronary artery without angina pectoris; G40.909 Epilepsy, unspecified, not intractable, without status epilepticus; E78.2 Mixed hyperlipidemia; I10 Essential (primary) hypertension; E66.9 Obesity, unspecified; I87.8 Other specified disorders of veins; H91.92 Unspecified hearing loss, left ear; F32.9 Major depressive disorder, single episode, unspecified; E87.5 Hyperkalemia; E83.42 Hypomagnesemia; E11.65 Type 2 diabetes mellitus with hyperglycemia; I25.2 Old myocardial infarction; Z95.1 Presence of aortocoronary bypass graft; F41.9 Anxiety disorder, unspecified; K21.9 Gastro-esophageal reflux disease without esophagitis; H61.21 Impacted cerumen, right ear; Z95.5 Presence of coronary angioplasty implant and graft; Z68.41 Body mass index [BMI] 40.0-44.9, adult; Z86.14 Personal history of Methicillin resistant Staphylococcus aureus infection; Z79.4 Long term (current) use of insulin; Z86.73 Personal history of transient ischemic attack (TIA), and cerebral infarction without residual deficits; Z83.3 Family history of diabetes mellitus
CPT/HCPCS: 36600; 71010; 71020; 74176; 76937; 80048; 80048 91; 80053; 80202; 81003; 82040; 82550; 82550 91; 82553; 82565; 82570; 82803; 82945; 82948; 83605; 83615 91; 83735; 83986 90; 84100; 84132 91; 84156; 84157; 84165; 84300; 84484; 84520; 84999; 85014; 85018; 85025; 85025 91; 85027; 85610; 85730; 86900; 86901; 86920; 87070; 87075; 87076; 87077; 87116; 87147; 87185; 87186; 87205; 87206; 87641; 88108; 88305; 88307; 88311; 89051; 93005; 93306; 94799; 97530 GO; 97530 GP; A6260; C1725; C1757; C1768; C1769; C1894; C9113; J0131; J0330; J0610; J0692; J0744; J1170; J1450; J1644; J1650; J1815; J1940; J2020; J2250; J2405; J2550; J2720; J2765; J2997; J3010; J3370; J3475; J7030; J7050; J7120; P9016; P9035; P9040; S0030

== ENCOUNTER 2017-09-06 21:40 | Inpatient (IN) | payer OTHER ==
[~2017-09-06] VITALS: Ht 157.5 cm; Wt 95.2 kg
[~2017-09-06 21:40] MED LIST changes: +ALPRAZOLAM0.25 M2 PO; +AMITRIPTYLINE H50 MG PO; +BAYER CHEWABLE81 MG PO; +FLUOXETINE HCL20 MG PO; +GLIPIZIDE10 MG PO; +GLUCOPHAGE1000 MG PO; +HYDROMORPHONE HC2 MG PO; +LASIX20 MG PO; +LINEZOLID600 MG PO; +LOVENOX40 MG/0.4 SC; +METRONIDAZOLE500 MG PO; +MIRTAZAPINE15 MG PO; +NEURONTIN300 MG PO; +TEGRETOL200 MG PO; +TENORMIN50 MG PO; +ZOCOR40 MG PO
[2017-09-06 22:51] LABS: HEMATOCRIT 34.9 % (36.0-46.0); MCHC 32.4 G/DL (30.0-36.0); MCV 86.6 FL (83-99); MEAN PLAT.VOLUME 11.4 uM^3 (9.5-12.4); PLATELET COUNT 421 K/uL (156-360); RBC DIS.WIDTH-CV 14.6 % (11.8-14.6); RBC DIS.WIDTH-SD 46.6 % (39-53); RED BLOOD COUNT 4.03 M/uL (3.80-5.20); WHITE BLOOD COUNT 14.4 K/uL (4.1-10.2)
[2017-09-06 23:02] LABS: PROTHROMBIN TIME 11.4 SEC (10.2-12.9)
[2017-09-06 23:04] LABS: CHLORIDE 102 mEq/L (99-109); POTASSIUM 4.6 mEq/L (3.7-5.4); SODIUM 137 mEq/L (136-147)
[2017-09-06 23:05] LABS: PTT 26.2 SEC (25-37)
[2017-09-06 23:06] LABS: GLUCOSE 393 mg/dL (70-99)
[2017-09-06 23:08] LABS: ANION GAP 12 MEQ/L (2-14); TOTAL BILIRUBIN 0.3 mg/dL (0.0-1.0)
[2017-09-06 23:10] LABS: ALKALINE PHOSPHATASE 174 IU/L (3-129); GFR ESTIMATE (CALCULATED) 56 mL/min/
[2017-09-06 23:11] LABS: UREA NITROGEN (BUN) 25 mg/dL (9-23)
[2017-09-06 23:14] LABS: LIPASE 37 U/L (1.0-51.0)
[2017-09-06 23:15] LABS: TROP-I INTERPRETATION NEGATIVE; TROPONIN-I 0.22 ng/mL (0.0-0.30)
[2017-09-07] MEDS ORDERED: LIPITOR20 MG PO (04:52)
[2017-09-07] MEDS ORDERED: NORVASC5 MG PO (04:52)
[2017-09-07] MEDS ORDERED: PROTONIX40 MG PO (04:53)
[2017-09-07] MEDS ORDERED: MULTIVITAMIN1 EAC2 PO (04:54)
[2017-09-07] MEDS ORDERED: SLIDING SCALE INSULI (04:59)
[2017-09-07] MEDS ORDERED: GLUCAGEN1 M1 IM (05:00)
[2017-09-07] MEDS ORDERED: TYLENOL REGULA325 MG PO (05:01)
[2017-09-07] MEDS ORDERED: ZOFRAN4 MG PO (05:02)
[2017-09-07] MEDS ORDERED: PERCOCET 5/31 TABLET PO (05:02)
[2017-09-07] MEDS ORDERED: PROZAC20 MG PO (05:03)
[2017-09-07] MEDS ORDERED: ANTI-FUNGAL71 GM TP (05:14)
[2017-09-07] MEDS ORDERED: NITROGLYCERIN0.4 MG SL (05:14)
[2017-09-07] MEDS ORDERED: CALAMINE PHENO180 ML TP (05:15)
[2017-09-07] MEDS ORDERED: ACETAMINOPHEN325 M1 PO (05:18)
[2017-09-07] MEDS ORDERED: FLEXERIL5 MG PO (05:19)
[2017-09-07 07:09] LABS: INFLUENZA A VIRAL ANTIGEN NEGATIVE; INFLUENZA B VIRAL ANTIGEN NEGATIVE
[2017-09-07 07:13] LABS: BASOPHIL COUNT 0.1 K/uL (0-0.1); EOSINOPHIL (%) 4.7 % (0-5); EOSINOPHIL COUNT 0.5 K/uL (0-0.3); HEMATOCRIT 32.8 % (36.0-46.0); IMMATURE GRANULOCYTE (%) 0.3 % (0.0-0.7); INSTRUMENT ABS NEUTROPHIL CT 6.9 K/uL; LYMPHOCYTE COUNT 2.5 K/uL (1.0-2.8); MCH 27.7 PG (29.0-34.0); MCHC 31.7 G/DL (30.0-36.0); MCV 87.2 FL (83-99); MONOCYTE (%) 8.1 % (3-12); MONOCYTE COUNT 0.9 K/uL (0-0.8); NEUTROPHIL (%) 63.5 % (45-76); NEUTROPHIL COUNT 6.9 K/uL (1.8-6.4); RBC DIS.WIDTH-CV 14.7 % (11.8-14.6); RBC DIS.WIDTH-SD 46.7 % (39-53); RED BLOOD COUNT 3.76 M/uL (3.80-5.20); WHITE BLOOD COUNT 10.9 K/uL (4.1-10.2)
[2017-09-07 07:42] LABS: ANION GAP 10 MEQ/L (2-14); CHLORIDE 99 MEQ/L (99-109); POTASSIUM 3.9 MEQ/L (3.7-5.4); SAMPLE HEMOLYSIS CHECK 0; SAMPLE ICTERIC CHECK 0; SAMPLE LIPEMIA CHECK 0; SODIUM 135 MEQ/L (136-147); TOTAL BILIRUBIN 0.3 MG/DL (0.0-1.0)
[2017-09-07 07:48] LABS: ALKALINE PHOSPHATASE 143 IU/L (3-129); GFR ESTIMATE (CALCULATED) > 59 mL/min/; GLUCOSE 257 mg/dL (70-99); UREA NITROGEN (BUN) 27 mg/dL (9-23)
[2017-09-07 07:51] LABS: TROPONIN-I 9.49 ng/mL (0.0-0.30)
[2017-09-07 07:52] LABS: TROP-I INTERPRETATION POSITIVE
[2017-09-07 07:55] VITALS: BP 145/77
[2017-09-07 08:25] LABS: MEAN PLAT.VOLUME 11.3 uM^3 (9.5-12.4); PLAT.SUFFICIENCY INCREASED; PLATELET COUNT 371 K/uL (156-360)
[2017-09-07 09:15] VITALS: BP 187/91
[2017-09-07 11:50] VITALS: BP 150/78
[2017-09-07 12:22] LABS: POINT-OF-CARE METER ID UU13113698
[2017-09-07 14:27] LABS: TROP-I INTERPRETATION POSITIVE; TROPONIN-I 12.14 ng/mL (0.0-0.30)
[2017-09-07 17:31] LABS: POINT-OF-CARE METER ID UU13113819
[2017-09-07 19:20] VITALS: BP 145/71
[2017-09-07 21:42] LABS: POINT-OF-CARE METER ID UU14174216
[2017-09-07 22:30] VITALS: BP 133/65
[2017-09-08] VITALS (7 sets, daily range): BP systolic 118–150; BP diastolic 64–88
[2017-09-08 06:58] LABS: INTERNAL CONTROL VALID? YES
[2017-09-08 07:38] LABS: POINT-OF-CARE METER ID UU14314088
[2017-09-08 08:59] LABS: HEMATOCRIT 31.1 % (36.0-46.0); MCH 27.4 PG (29.0-34.0); MCHC 30.9 G/DL (30.0-36.0); MCV 88.9 FL (83-99); MEAN PLAT.VOLUME 11.4 uM^3 (9.5-12.4); PLATELET COUNT 363 K/uL (156-360); RBC DIS.WIDTH-CV 14.9 % (11.8-14.6); RBC DIS.WIDTH-SD 48.1 % (39-53); WHITE BLOOD COUNT 13.8 K/uL (4.1-10.2)
[2017-09-08 09:26] LABS: Estimated Average Glucose 235 mg/dL (70-123); HEMOGLOBIN A1c (GLYCOHEMOGLOB) 9.8 % HGB (Below 5.7)
[2017-09-08 09:37] LABS: ALKALINE PHOSPHATASE 149 IU/L (3-129); ANION GAP 11 MEQ/L (2-14); CHLORIDE 101 MEQ/L (99-109); GLUCOSE 344 mg/dL (70-99); SAMPLE HEMOLYSIS CHECK 0; SAMPLE ICTERIC CHECK 0; SAMPLE LIPEMIA CHECK 0; SODIUM 134 MEQ/L (136-147); TOTAL BILIRUBIN 0.3 MG/DL (0.0-1.0); UREA NITROGEN (BUN) 37 mg/dL (9-23)
[2017-09-08 09:38] LABS: GFR ESTIMATE (CALCULATED) 39 mL/min/; POTASSIUM 5.3 MEQ/L (3.7-5.4)
[2017-09-08] MEDS ORDERED: LEVEMIR FL100 UNIT/1 SC (09:50)
[2017-09-08] MEDS ORDERED: NOVOLOG PE100 UNITS/ SC (09:54)
[2017-09-08] MEDS ORDERED: PRAVASTATIN SOD80 MG PO (10:45)
[2017-09-08] MEDS ORDERED: LOSARTAN POTASS50 MG PO (10:46)
[2017-09-08 10:58] LABS: POINT-OF-CARE METER ID UU14314088
[2017-09-08 16:15] LABS: POINT-OF-CARE METER ID UU13113698
[2017-09-08 20:42] LABS: METH RESISTANT S AUREUS PCR POSITIVE (NEGATIVE)
[2017-09-08 20:43] LABS: PROBE CHECK PASS
[2017-09-08 21:11] LABS: POINT-OF-CARE METER ID UU14174216
[2017-09-09 04:42] VITALS: BP 136/60
[2017-09-09 05:30] LABS: EOSINOPHIL (%) 2.1 % (0-5); EOSINOPHIL COUNT 0.3 K/uL (0-0.3); HEMATOCRIT 28.5 % (36.0-46.0); IMMATURE GRANULOCYTE (%) 0.4 % (0.0-0.7); IMMATURE GRANULOCYTE COUNT 0.1 K/uL; INSTRUMENT ABS NEUTROPHIL CT 10.8 K/uL; LYMPHOCYTE COUNT 1.8 K/uL (1.0-2.8); MCH 28.8 PG (29.0-34.0); MCHC 32.6 G/DL (30.0-36.0); MCV 88.2 FL (83-99); MEAN PLAT.VOLUME 11.6 uM^3 (9.5-12.4); MONOCYTE (%) 10.1 % (3-12); MONOCYTE COUNT 1.5 K/uL (0-0.8); NEUTROPHIL (%) 74.7 % (45-76); NEUTROPHIL COUNT 10.8 K/uL (1.8-6.4); PLATELET COUNT 326 K/uL (156-360); RBC DIS.WIDTH-CV 15.2 % (11.8-14.6); RED BLOOD COUNT 3.23 M/uL (3.80-5.20); WHITE BLOOD COUNT 14.5 K/uL (4.1-10.2)
[2017-09-09 05:57] LABS: ANION GAP 8 MEQ/L (2-14); CHLORIDE 102 MEQ/L (99-109); GFR ESTIMATE (CALCULATED) 36 mL/min/; GLUCOSE 271 mg/dL (70-99); POTASSIUM 4.7 MEQ/L (3.7-5.4); SAMPLE HEMOLYSIS CHECK 0; SAMPLE ICTERIC CHECK 0; SAMPLE LIPEMIA CHECK 0; SODIUM 134 MEQ/L (136-147); UREA NITROGEN (BUN) 38 mg/dL (9-23)
[2017-09-09 07:24] VITALS: BP 128/72
[2017-09-09 07:39] LABS: POINT-OF-CARE METER ID UU14314088
[2017-09-09 10:58] VITALS: BP 122/62
[2017-09-09 11:09] LABS: POINT-OF-CARE METER ID UU13113781
[2017-09-09 15:25] VITALS: BP 127/64
[2017-09-09 15:57] LABS: POINT-OF-CARE METER ID UU13113781
[2017-09-09 20:56] VITALS: BP 118/56
[2017-09-09 21:18] LABS: POINT-OF-CARE METER ID UU14174216; POINT-OF-CARE USER ID ENVMNS
[2017-09-09 23:28] VITALS: BP 132/60
[2017-09-10 05:11] VITALS: BP 111/57
[2017-09-10 05:44] LABS: BASOPHIL COUNT 0.1 K/uL (0-0.1); EOSINOPHIL (%) 4.5 % (0-5); EOSINOPHIL COUNT 0.6 K/uL (0-0.3); HEMATOCRIT 25.8 % (36.0-46.0); IMMATURE GRANULOCYTE (%) 0.3 % (0.0-0.7); INSTRUMENT ABS NEUTROPHIL CT 7.6 K/uL; LYMPHOCYTE COUNT 3.3 K/uL (1.0-2.8); MCH 27.4 PG (29.0-34.0); MCV 88.4 FL (83-99); MEAN PLAT.VOLUME 11.3 uM^3 (9.5-12.4); MONOCYTE (%) 10.4 % (3-12); MONOCYTE COUNT 1.4 K/uL (0-0.8); NEUTROPHIL (%) 58.7 % (45-76); NEUTROPHIL COUNT 7.6 K/uL (1.8-6.4); PLATELET COUNT 290 K/uL (156-360); RBC DIS.WIDTH-SD 48.3 % (39-53); RED BLOOD COUNT 2.92 M/uL (3.80-5.20)
[2017-09-10 06:30] LABS: ANION GAP 9 MEQ/L (2-14); CHLORIDE 103 MEQ/L (99-109); GFR ESTIMATE (CALCULATED) 39 mL/min/; POTASSIUM 4.5 MEQ/L (3.7-5.4); SAMPLE HEMOLYSIS CHECK 0; SAMPLE ICTERIC CHECK 0; SAMPLE LIPEMIA CHECK 0; SODIUM 136 MEQ/L (136-147); UREA NITROGEN (BUN) 46 mg/dL (9-23)
[2017-09-10 06:31] LABS: GLUCOSE 133 mg/dL (70-99)
[2017-09-10 07:28] VITALS: BP 118/62
[2017-09-10 08:09] LABS: POINT-OF-CARE METER ID UU14314088
[2017-09-10 11:17] LABS: POINT-OF-CARE METER ID UU13113781
[2017-09-10 11:46] VITALS: BP 130/64
[2017-09-10 15:51] VITALS: BP 130/72
[2017-09-10 16:43] LABS: POINT-OF-CARE METER ID UU13113781; POINT-OF-CARE USER ID NUTSLF44
[2017-09-10 20:54] LABS: POINT-OF-CARE METER ID UU14314088
[2017-09-10 21:00] VITALS: BP 141/78
[2017-09-10 22:25] LABS: ADD MIUA? YES; BILIRUBIN NEGATIVE; BLOOD NEGATIVE; COLOR STRAW ((YELLOW)); GLUCOSE (STRIP) >=500; KETONES NEGATIVE; LEUKOCYTES TRACE; NITRITE NEGATIVE; PROTEIN (STRIP) 30; SPECIFIC GRAVITY 1.008 (1.000-1.030); UROBILINOGEN 0.2 MG/DL (0.2-1.0)
[2017-09-10 22:37] LABS: BACTERIA NONE SEEN /HPF; EPITHELIAL CELLS RARE /HPF; MUCUS NONE SEEN /LPF; RED BLOOD CELLS 0-5 /HPF (0-5); UCUL ADDED? YES
[2017-09-10 23:34] VITALS: BP 130/61
[2017-09-11 05:32] VITALS: BP 130/61
[2017-09-11 05:32] LABS: BASOPHIL COUNT 0.1 K/uL (0-0.1); EOSINOPHIL (%) 5.6 % (0-5); EOSINOPHIL COUNT 0.6 K/uL (0-0.3); HEMATOCRIT 26.6 % (36.0-46.0); IMMATURE GRANULOCYTE (%) 0.3 % (0.0-0.7); INSTRUMENT ABS NEUTROPHIL CT 7.6 K/uL; LYMPHOCYTE COUNT 2.3 K/uL (1.0-2.8); MCH 28.8 PG (29.0-34.0); MCHC 32.3 G/DL (30.0-36.0); MONOCYTE COUNT 0.9 K/uL (0-0.8); NEUTROPHIL COUNT 7.6 K/uL (1.8-6.4); PLATELET COUNT 328 K/uL (156-360); RBC DIS.WIDTH-CV 15.1 % (11.8-14.6); RBC DIS.WIDTH-SD 49.3 % (39-53); RED BLOOD COUNT 2.99 M/uL (3.80-5.20); WHITE BLOOD COUNT 11.5 K/uL (4.1-10.2)
[2017-09-11 06:02] LABS: ALKALINE PHOSPHATASE 136 IU/L (3-129); ANION GAP 10 MEQ/L (2-14); CHLORIDE 105 MEQ/L (99-109); GFR ESTIMATE (CALCULATED) 51 mL/min/; POTASSIUM 4.7 MEQ/L (3.7-5.4); SAMPLE HEMOLYSIS CHECK 0; SAMPLE ICTERIC CHECK 0; SAMPLE LIPEMIA CHECK 0; SODIUM 140 MEQ/L (136-147); TOTAL BILIRUBIN 0.3 MG/DL (0.0-1.0); UREA NITROGEN (BUN) 39 mg/dL (9-23)
[2017-09-11 06:03] LABS: GLUCOSE 201 mg/dL (70-99)
[2017-09-11 08:00] VITALS: BP 120/62
[2017-09-11 08:15] LABS: POINT-OF-CARE METER ID UU13113781; POINT-OF-CARE USER ID NUTSLF44
[2017-09-11 11:30] LABS: POINT-OF-CARE METER ID UU13113781; POINT-OF-CARE USER ID NUTSLF44
[2017-09-11 12:03] VITALS: BP 140/68
== END 2017-09-11 15:27 | disposition short-term general hospital (02) | DRG 280 ==
LOC: EME → EDBD 21:40 → EDOF 09-07 04:37 → 4EAST 09-07 04:37 → ENRESERV 09-07 04:44 → 5SOUTH 09-07 07:18 → ENRESERV 09-07 08:02 → 4EAST 09-07 08:05 → ENRESERV 09-07 08:19 → 5SOUTH 09-07 08:20 → 4EAST 09-07 09:09
PROVIDERS: Emergency Medicine; Hospitalist; Internal Medicine
PROC: B3101ZZ Fluoroscopy of Thoracic Aorta using Low Osmolar Contrast (ICD-10-PCS; principal; 2017-09-07)
PROC: 4A023N7 Measurement of Cardiac Sampling and Pressure, Left Heart, Percutaneous Approach (ICD-10-PCS; principal; 2017-09-07)
PROC: B2111ZZ Fluoroscopy of Multiple Coronary Arteries using Low Osmolar Contrast (ICD-10-PCS; principal; 2017-09-07)
PROC: B2131ZZ Fluoroscopy of Multiple Coronary Artery Bypass Grafts using Low Osmolar Contrast (ICD-10-PCS; principal; 2017-09-07)
PROC: B2151ZZ Fluoroscopy of Left Heart using Low Osmolar Contrast (ICD-10-PCS; principal; 2017-09-07)
DX: T82.855A Stenosis of coronary artery stent, initial encounter (principal); I21.4 Non-ST elevation (NSTEMI) myocardial infarction; Y83.1 Surgical operation with implant of artificial internal device as the cause of abnormal reaction of the patient, or of later complication, without mention of misadventure at the time of the procedure; N17.9 Acute kidney failure, unspecified; L89.154 Pressure ulcer of sacral region, stage 4; J90 Pleural effusion, not elsewhere classified; E11.51 Type 2 diabetes mellitus with diabetic peripheral angiopathy without gangrene; I25.810 Atherosclerosis of coronary artery bypass graft(s) without angina pectoris; I25.10 Atherosclerotic heart disease of native coronary artery without angina pectoris; I10 Essential (primary) hypertension; I16.0 Hypertensive urgency; E78.5 Hyperlipidemia, unspecified; I25.5 Ischemic cardiomyopathy; K21.9 Gastro-esophageal reflux disease without esophagitis; F32.9 Major depressive disorder, single episode, unspecified; F41.9 Anxiety disorder, unspecified; T81.89XA Other complications of procedures, not elsewhere classified, initial encounter; E66.01 Morbid (severe) obesity due to excess calories; Z68.39 Body mass index [BMI] 39.0-39.9, adult; Z89.611 Acquired absence of right leg above knee; I25.2 Old myocardial infarction; Z95.1 Presence of aortocoronary bypass graft; Z79.4 Long term (current) use of insulin; Z79.02 Long term (current) use of antithrombotics/antiplatelets; Z79.82 Long term (current) use of aspirin; Z86.73 Personal history of transient ischemic attack (TIA), and cerebral infarction without residual deficits; Z95.0 Presence of cardiac pacemaker
CPT/HCPCS: 71010; 71020; 71275; 80048; 80053; 81003; 82948; 83036; 83605; 83690; 83880; 84484; 85025; 85027; 85379; 85610; 85730; 87040; 87070; 87086; 87205; 87449; 87502; 87641; 93005; 94640; 99202; 99281; 99285; C1750; C1769; C1887; C1894; J1200; J1644; J1815; J1940; J1956; J2250; J2270; J3010; J7040

== ENCOUNTER 2017-09-15 03:11 | Emergency (ER) | payer OTHER ==
[~2017-09-15] VITALS: Ht 157.5 cm; Wt 101.3 kg
[~2017-09-15 03:11] MED LIST changes: +ACETAMINOPHEN325 M1 PO; +ANTI-FUNGAL71 GM TP; +CALAMINE PHENO180 ML TP; +FLEXERIL5 MG PO; +GLUCAGEN1 M1 IM; +LEVEMIR FL100 UNIT/1 SC; +LIPITOR20 MG PO; +LOSARTAN POTASS50 MG PO; +MULTIVITAMIN1 EAC2 PO; +NITROGLYCERIN0.4 MG SL; +NORVASC5 MG PO; +NOVOLOG PE100 UNITS/ SC; +PERCOCET 5/31 TABLET PO; +PRAVASTATIN SOD80 MG PO; +PROTONIX40 MG PO; +PROZAC20 MG PO; +SLIDING SCALE INSULI; +TYLENOL REGULA325 MG PO; +ZOFRAN4 MG PO
[2017-09-15 03:53] LABS: BASOPHIL COUNT 0.1 K/uL (0-0.1); EOSINOPHIL (%) 0.8 % (0-5); EOSINOPHIL COUNT 0.2 K/uL (0-0.3); HEMATOCRIT 27.3 % (36.0-46.0); IMMATURE GRANULOCYTE (%) 0.9 % (0.0-0.7); IMMATURE GRANULOCYTE COUNT 0.2 K/uL; INSTRUMENT ABS NEUTROPHIL CT 15.3 K/uL; LYMPHOCYTE COUNT 2.4 K/uL (1.0-2.8); MCH 27.7 PG (29.0-34.0); MCHC 32.2 G/DL (30.0-36.0); MCV 85.8 FL (83-99); MEAN PLAT.VOLUME 10.1 uM^3 (9.5-12.4); MONOCYTE (%) 9.5 % (3-12); MONOCYTE COUNT 1.9 K/uL (0-0.8); NEUTROPHIL (%) 76.6 % (45-76); NEUTROPHIL COUNT 15.3 K/uL (1.8-6.4); PLATELET COUNT 391 K/uL (156-360); RBC DIS.WIDTH-CV 14.8 % (11.8-14.6); RBC DIS.WIDTH-SD 46.8 % (39-53); RED BLOOD COUNT 3.18 M/uL (3.80-5.20); WHITE BLOOD COUNT 19.9 K/uL (4.1-10.2)
[2017-09-15 04:16] LABS: CHLORIDE 105 mEq/L (99-109); SODIUM 139 mEq/L (136-147)
[2017-09-15 04:18] LABS: GLUCOSE 129 mg/dL (70-99)
[2017-09-15 04:19] LABS: ANION GAP 14 MEQ/L (2-14)
[2017-09-15 04:20] LABS: TOTAL BILIRUBIN 0.3 mg/dL (0.0-1.0)
[2017-09-15 04:22] LABS: ALKALINE PHOSPHATASE 152 IU/L (3-129); GFR ESTIMATE (CALCULATED) > 59 mL/min/
[2017-09-15 04:25] LABS: LIPASE 12 U/L (1.0-51.0)
[2017-09-15 04:31] LABS: QUANTITATIVE HCG < 4.0 MIU/ML
[2017-09-15 04:39] LABS: POTASSIUM 3.7 mEq/L (3.7-5.4); UREA NITROGEN (BUN) 15 mg/dL (9-23)
[2017-09-15 05:56] LABS: ADD MIUA? YES; BILIRUBIN NEGATIVE; BLOOD SMALL; COLOR YELLOW ((YELLOW)); GLUCOSE (STRIP) 50; KETONES 5; LEUKOCYTES NEGATIVE; NITRITE NEGATIVE; PROTEIN (STRIP) >=500; SPECIFIC GRAVITY 1.017 (1.000-1.030); UROBILINOGEN 0.2 MG/DL (0.2-1.0)
[2017-09-15 06:01] LABS: BACTERIA NONE SEEN /HPF; EPITHELIAL CELLS 1+ /HPF; MUCUS NONE SEEN /LPF; RED BLOOD CELLS 0-5 /HPF (0-5); UCUL ADDED? YES
[2017-09-15] MEDS ORDERED: REGLAN10 MG PO (06:53)
[2017-09-15 07:26] VITALS: BP 168/87
[2017-09-16] MEDS ORDERED: FAMOTIDINE20 MG PO (12:47)
[2017-09-16] MEDS ORDERED: DOCUSATE SODIU100 MG PO (12:51)
[2017-09-16] MEDS ORDERED: LOSARTAN POTASS50 MG PO (12:54)
[2017-09-16] MEDS ORDERED: DUONEB 2.5-0.5 M3 ML AEROSOL (12:55)
[2017-09-16] MEDS ORDERED: MIRALAX17 GM PO (12:56)
[2017-09-16] MEDS ORDERED: REGLAN10 MG PO (12:57)
== END 2017-09-15 08:07 ==
LOC: EME → EDBD 03:11 → EME 08:07
PROVIDERS: Emergency Medicine
DX: K80.20 Calculus of gallbladder without cholecystitis without obstruction (principal); R11.10 Vomiting, unspecified; R19.7 Diarrhea, unspecified; K21.9 Gastro-esophageal reflux disease without esophagitis; I10 Essential (primary) hypertension; E11.9 Type 2 diabetes mellitus without complications; R56.9 Unspecified convulsions; G43.909 Migraine, unspecified, not intractable, without status migrainosus; F41.9 Anxiety disorder, unspecified; F32.9 Major depressive disorder, single episode, unspecified; Z95.1 Presence of aortocoronary bypass graft; Z79.4 Long term (current) use of insulin; Z89.611 Acquired absence of right leg above knee; Z88.0 Allergy status to penicillin; Z86.73 Personal history of transient ischemic attack (TIA), and cerebral infarction without residual deficits
CPT/HCPCS: 74176; 80053; 81003; 83690; 84702; 85025; 87086; 87493; 87506; 99281; 99285; J2405; J3010; J7030

== ENCOUNTER 2017-09-15 21:36 | Inpatient (IN) | payer OTHER ==
[~2017-09-15] VITALS: Ht 157.5 cm; Wt 97.6 kg
[~2017-09-15 21:36] MED LIST changes: +REGLAN10 MG PO
[2017-09-15 23:02] LABS: BASOPHIL COUNT 0.1 K/uL (0-0.1); EOSINOPHIL COUNT 0.2 K/uL (0-0.3); IMMATURE GRANULOCYTE (%) 1.5 % (0.0-0.7); IMMATURE GRANULOCYTE COUNT 0.3 K/uL; LYMPHOCYTE COUNT 2.1 K/uL (1.0-2.8); MCHC 31.5 G/DL (30.0-36.0); MCV 85.7 FL (83-99); MEAN PLAT.VOLUME 10.5 uM^3 (9.5-12.4); MONOCYTE (%) 7.1 % (3-12); MONOCYTE COUNT 1.4 K/uL (0-0.8); NEUTROPHIL (%) 79.8 % (45-76); PLATELET COUNT 410 K/uL (156-360); RBC DIS.WIDTH-SD 46.7 % (39-53); RED BLOOD COUNT 3.15 M/uL (3.80-5.20); WHITE BLOOD COUNT 20.1 K/uL (4.1-10.2)
[2017-09-15 23:11] LABS: INTER. NORMALIZED RATIO 1.2; PROTHROMBIN TIME 13.4 SEC (10.2-12.9)
[2017-09-15 23:14] LABS: PTT 26.4 SEC (25-37)
[2017-09-15 23:15] LABS: CHLORIDE 104 mEq/L (99-109); POTASSIUM 3.6 mEq/L (3.7-5.4); SODIUM 136 mEq/L (136-147)
[2017-09-15 23:18] LABS: ANION GAP 12 MEQ/L (2-14); GLUCOSE 235 mg/dL (70-99)
[2017-09-15 23:19] LABS: TOTAL BILIRUBIN 0.3 mg/dL (0.0-1.0)
[2017-09-15 23:20] LABS: ALKALINE PHOSPHATASE 157 IU/L (3-129)
[2017-09-15 23:21] LABS: GFR ESTIMATE (CALCULATED) > 59 mL/min/
[2017-09-15 23:22] LABS: UREA NITROGEN (BUN) 10 mg/dL (9-23)
[2017-09-15 23:31] LABS: TROP-I INTERPRETATION POSITIVE
[2017-09-15 23:39] LABS: TROPONIN-I 0.78 ng/mL (0.0-0.30)
[2017-09-16 03:00] VITALS: BP 205/88
[2017-09-16 03:45] VITALS: BP 132/60
[2017-09-16 07:09] LABS: TROP-I INTERPRETATION POSITIVE; TROPONIN-I 0.95 ng/mL (0.0-0.30)
[2017-09-16 08:01] LABS: POINT-OF-CARE METER ID UU14174216
[2017-09-16 10:00] VITALS: BP 133/90
[2017-09-16 11:33] LABS: POINT-OF-CARE METER ID UU13113698
[2017-09-16 12:09] LABS: TROP-I INTERPRETATION POSITIVE; TROPONIN-I 0.87 ng/mL (0.0-0.30)
[2017-09-16] MEDS ORDERED: FAMOTIDINE20 MG PO (12:47)
[2017-09-16] MEDS ORDERED: DOCUSATE SODIU100 MG PO (12:51)
[2017-09-16] MEDS ORDERED: LOSARTAN POTASS50 MG PO (12:54)
[2017-09-16] MEDS ORDERED: DUONEB 2.5-0.5 M3 ML AEROSOL (12:55)
[2017-09-16] MEDS ORDERED: MIRALAX17 GM PO (12:56)
[2017-09-16] MEDS ORDERED: REGLAN10 MG PO (12:57)
[2017-09-16 14:14] LABS: BASOPHIL COUNT 0.1 K/uL (0-0.1); EOSINOPHIL (%) 1.5 % (0-5); EOSINOPHIL COUNT 0.3 K/uL (0-0.3); HEMATOCRIT 25.4 % (36.0-46.0); IMMATURE GRANULOCYTE (%) 0.7 % (0.0-0.7); IMMATURE GRANULOCYTE COUNT 0.2 K/uL; INSTRUMENT ABS NEUTROPHIL CT 16.4 K/uL; LYMPHOCYTE COUNT 1.6 K/uL (1.0-2.8); MCH 27.2 PG (29.0-34.0); MCHC 30.7 G/DL (30.0-36.0); MCV 88.5 FL (83-99); MEAN PLAT.VOLUME 10.4 uM^3 (9.5-12.4); MONOCYTE (%) 9.4 % (3-12); MONOCYTE COUNT 1.9 K/uL (0-0.8); NEUTROPHIL (%) 80.5 % (45-76); NEUTROPHIL COUNT 16.4 K/uL (1.8-6.4); PLATELET COUNT 381 K/uL (156-360); RBC DIS.WIDTH-CV 14.8 % (11.8-14.6); RBC DIS.WIDTH-SD 47.6 % (39-53); RED BLOOD COUNT 2.87 M/uL (3.80-5.20); WHITE BLOOD COUNT 20.4 K/uL (4.1-10.2)
[2017-09-16 14:36] LABS: ALKALINE PHOSPHATASE 124 IU/L (3-129); ANION GAP 9 MEQ/L (2-14); CHLORIDE 104 MEQ/L (99-109); GFR ESTIMATE (CALCULATED) > 59 mL/min/; GLUCOSE 231 mg/dL (70-99); POTASSIUM 3.8 MEQ/L (3.7-5.4); SAMPLE HEMOLYSIS CHECK 0; SAMPLE ICTERIC CHECK 0; SAMPLE LIPEMIA CHECK 0; SODIUM 136 MEQ/L (136-147); UREA NITROGEN (BUN) 11 mg/dL (9-23)
[2017-09-16 14:38] LABS: TOTAL BILIRUBIN 0.4 MG/DL (0.0-1.0)
[2017-09-16 15:00] VITALS: BP 144/63
[2017-09-16 17:23] LABS: POINT-OF-CARE METER ID UU13113698
[2017-09-16 19:53] VITALS: BP 142/65
[2017-09-16 20:38] LABS: POINT-OF-CARE METER ID UU13113698
[2017-09-17] VITALS (8 sets, daily range): BP systolic 109–130; BP diastolic 53–72
[2017-09-17 04:49] LABS: BASOPHIL COUNT 0.1 K/uL (0-0.1); EOSINOPHIL COUNT 0.5 K/uL (0-0.3); HEMATOCRIT 24.4 % (36.0-46.0); IMMATURE GRANULOCYTE (%) 0.6 % (0.0-0.7); IMMATURE GRANULOCYTE COUNT 0.1 K/uL; INSTRUMENT ABS NEUTROPHIL CT 11.1 K/uL; LYMPHOCYTE COUNT 2.6 K/uL (1.0-2.8); MCH 27.3 PG (29.0-34.0); MCHC 31.1 G/DL (30.0-36.0); MCV 87.8 FL (83-99); MEAN PLAT.VOLUME 10.9 uM^3 (9.5-12.4); MONOCYTE (%) 7.8 % (3-12); MONOCYTE COUNT 1.2 K/uL (0-0.8); NEUTROPHIL (%) 71.7 % (45-76); NEUTROPHIL COUNT 11.1 K/uL (1.8-6.4); PLATELET COUNT 388 K/uL (156-360); RBC DIS.WIDTH-CV 14.8 % (11.8-14.6); RBC DIS.WIDTH-SD 47.7 % (39-53); RED BLOOD COUNT 2.78 M/uL (3.80-5.20); WHITE BLOOD COUNT 15.5 K/uL (4.1-10.2)
[2017-09-17 04:59] LABS: CHLORIDE 106 mEq/L (99-109); POTASSIUM 3.5 mEq/L (3.7-5.4); SODIUM 136 mEq/L (136-147)
[2017-09-17 05:01] LABS: GLUCOSE 183 mg/dL (70-99)
[2017-09-17 05:03] LABS: ANION GAP 8 MEQ/L (2-14); TOTAL BILIRUBIN 0.3 mg/dL (0.0-1.0)
[2017-09-17 05:05] LABS: ALKALINE PHOSPHATASE 129 IU/L (3-129); GFR ESTIMATE (CALCULATED) > 59 mL/min/
[2017-09-17 05:06] LABS: UREA NITROGEN (BUN) 10 mg/dL (9-23)
[2017-09-17 08:11] LABS: POINT-OF-CARE METER ID UU13113781
[2017-09-17 11:34] LABS: POINT-OF-CARE METER ID UU13113781
[2017-09-17 15:26] LABS: C DIFF TOXIN POSITIVE (NEGATIVE)
[2017-09-17 15:36] LABS: PROBE CHECK PASS
[2017-09-17 16:18] LABS: POINT-OF-CARE METER ID UU14162508
[2017-09-17 21:54] LABS: POINT-OF-CARE METER ID UU14162508
[2017-09-18 02:55] VITALS: BP 115/65
[2017-09-18 06:28] LABS: POINT-OF-CARE METER ID UU14162508
[2017-09-18 08:10] VITALS: BP 113/56
[2017-09-18 12:14] LABS: POINT-OF-CARE METER ID UU14162508
[2017-09-18 12:35] VITALS: BP 139/64
[2017-09-18 16:29] LABS: POINT-OF-CARE METER ID UU14162508
[2017-09-18 16:48] VITALS: BP 128/60
[2017-09-18 19:42] VITALS: BP 125/72
[2017-09-18 21:56] LABS: POINT-OF-CARE METER ID UU14162508
[2017-09-19 00:06] VITALS: BP 128/61
[2017-09-19 06:56] LABS: BASOPHIL COUNT 0.1 K/uL (0-0.1); EOSINOPHIL (%) 4.7 % (0-5); EOSINOPHIL COUNT 0.6 K/uL (0-0.3); HEMATOCRIT 23.9 % (36.0-46.0); IMMATURE GRANULOCYTE (%) 1.1 % (0.0-0.7); IMMATURE GRANULOCYTE COUNT 0.2 K/uL; INSTRUMENT ABS NEUTROPHIL CT 8.7 K/uL; LYMPHOCYTE COUNT 2.7 K/uL (1.0-2.8); MCHC 31.4 G/DL (30.0-36.0); MCV 89.2 FL (83-99); MEAN PLAT.VOLUME 10.9 uM^3 (9.5-12.4); MONOCYTE (%) 8.6 % (3-12); MONOCYTE COUNT 1.1 K/uL (0-0.8); NEUTROPHIL (%) 65.1 % (45-76); NEUTROPHIL COUNT 8.7 K/uL (1.8-6.4); PLATELET COUNT 372 K/uL (156-360); RBC DIS.WIDTH-CV 15.1 % (11.8-14.6); RBC DIS.WIDTH-SD 48.5 % (39-53); RED BLOOD COUNT 2.68 M/uL (3.80-5.20); WHITE BLOOD COUNT 13.3 K/uL (4.1-10.2)
[2017-09-19 07:30] LABS: ANION GAP 9 MEQ/L (2-14); CHLORIDE 106 MEQ/L (99-109); GFR ESTIMATE (CALCULATED) > 59 mL/min/; GLUCOSE 219 mg/dL (70-99); POTASSIUM 4.1 MEQ/L (3.7-5.4); SAMPLE HEMOLYSIS CHECK 0; SAMPLE ICTERIC CHECK 0; SAMPLE LIPEMIA CHECK 0; SODIUM 137 MEQ/L (136-147)
[2017-09-19 07:39] VITALS: BP 125/62
[2017-09-19 07:50] LABS: UREA NITROGEN (BUN) 21 mg/dL (9-23)
[2017-09-19 07:50] LABS: POINT-OF-CARE METER ID UU14162508
[2017-09-19 11:25] LABS: POINT-OF-CARE METER ID UU14162508
[2017-09-19] MEDS ORDERED: ALPRAZOLAM0.25 M2 PO (14:24)
[2017-09-19] MEDS ORDERED: METRONIDAZOLE500 MG PO (14:24)
[2017-09-19] MEDS ORDERED: Zeasorb Antifungal T TP (14:24)
[2017-09-19] MEDS ORDERED: PERCOCET 5/31 TABLET PO (14:24)
[2017-09-19 15:44] VITALS: BP 136/70
[2017-09-19 15:55] LABS: POINT-OF-CARE METER ID UU14162508
[2017-09-19 21:22] LABS: POINT-OF-CARE METER ID UU14162508
[2017-09-19 22:43] VITALS: BP 142/72
== END 2017-09-19 23:00 | DRG 371 ==
LOC: EME 21:36 → EDOF 09-16 01:24 → ENRESERV 09-16 01:25 → CANRESERV 09-16 01:51 → ENRESERV 09-16 01:51 → 2EAST 09-16 02:05 → 4EAST 09-16 02:05 → EDOF 09-16 02:05 → ENRESERV 09-16 02:09 → 4EAST 09-16 03:05 → ENRESERV 09-17 10:08 → 2EAST 09-17 13:33
PROVIDERS: Emergency Medicine; Hospitalist; Internal Medicine
DX: A04.72 Enterocolitis due to Clostridium difficile, not specified as recurrent (principal); E66.01 Morbid (severe) obesity due to excess calories; I25.10 Atherosclerotic heart disease of native coronary artery without angina pectoris; E11.65 Type 2 diabetes mellitus with hyperglycemia; K80.20 Calculus of gallbladder without cholecystitis without obstruction; I21.4 Non-ST elevation (NSTEMI) myocardial infarction; K21.9 Gastro-esophageal reflux disease without esophagitis; E11.51 Type 2 diabetes mellitus with diabetic peripheral angiopathy without gangrene; I10 Essential (primary) hypertension; E78.2 Mixed hyperlipidemia; Z95.1 Presence of aortocoronary bypass graft; Z89.611 Acquired absence of right leg above knee; I25.2 Old myocardial infarction; Z79.82 Long term (current) use of aspirin; Z68.39 Body mass index [BMI] 39.0-39.9, adult; Z95.5 Presence of coronary angioplasty implant and graft; Z80.51 Family history of malignant neoplasm of kidney; Z79.02 Long term (current) use of antithrombotics/antiplatelets; Z86.73 Personal history of transient ischemic attack (TIA), and cerebral infarction without residual deficits
CPT/HCPCS: 74176; 78226; 80048; 80053; 81003; 82948; 83605; 83690; 84484; 84702; 85025; 85025 91; 85027; 85610; 85730; 87086; 87493; 87506; 93005; 99281; 99285; A6260; A9537; J1170; J1200; J1630; J1650; J1815; J1956; J2270; J2405; J3010; J7030; S0030

== ENCOUNTER 2017-11-20 19:26 | Inpatient (IN) | payer OTHER ==
[~2017-11-20] VITALS: Ht 162.6 cm; Wt 97.9 kg
[~2017-11-20 19:26] MED LIST changes: +DOCUSATE SODIU100 MG PO; +DUONEB 2.5-0.5 M3 ML AEROSOL; +FAMOTIDINE20 MG PO; +HUMALOG100 UNIT/2 SC; +MIRALAX17 GM PO; -NOVOLOG PE100 UNITS/ SC; +Zeasorb Antifungal T TP
[2017-11-20 20:53] LABS: HEMATOCRIT 37.3 % (36.0-46.0); MCH 25.8 PG (29.0-34.0); MCHC 31.1 G/DL (30.0-36.0); MCV 82.9 FL (83-99); PLATELET COUNT 431 K/uL (156-360); RBC DIS.WIDTH-CV 14.1 % (11.8-14.6); RBC DIS.WIDTH-SD 42.9 % (39-53); WHITE BLOOD COUNT 13.2 K/uL (4.1-10.2)
[2017-11-20 20:55] LABS: HEMOGLOBIN 11.6 G/DL (11.9-15.5)
[2017-11-20 21:05] LABS: CHLORIDE 103 mEq/L (99-109); POTASSIUM 5.2 mEq/L (3.7-5.4); SODIUM 137 mEq/L (136-147)
[2017-11-20 21:06] LABS: GLUCOSE 283 mg/dL (70-99)
[2017-11-20 21:10] LABS: CREATININE 1.2 mg/dL (0.6-1.3); GFR ESTIMATE (CALCULATED) 51 mL/min/
[2017-11-20 21:11] LABS: UREA NITROGEN (BUN) 27 mg/dL (9-23)
[2017-11-20 21:14] LABS: TROP-I INTERPRETATION NEGATIVE; TROPONIN-I 0.02 ng/mL (0.0-0.30)
[2017-11-20 21:22] LABS: QUANTITATIVE HCG < 4.0 MIU/ML
[2017-11-21] VITALS (11 sets, daily range): BP systolic 107–201; BP diastolic 58–94
[2017-11-21 00:19] LABS: TROP-I INTERPRETATION NEGATIVE; TROPONIN-I 0.16 ng/mL (0.0-0.30)
[2017-11-21] MEDS ORDERED: BASAGLAR K100 UNIT/1 SC (02:22)
[2017-11-21 07:02] LABS: TROP-I INTERPRETATION POSITIVE; TROPONIN-I 1.25 ng/mL (0.0-0.30)
[2017-11-21 11:55] LABS: TROP-I INTERPRETATION POSITIVE; TROPONIN-I 1.31 ng/mL (0.0-0.30)
[2017-11-22] VITALS (9 sets, daily range): BP systolic 121–216; BP diastolic 7–102
[2017-11-22 00:53] LABS: TROP-I INTERPRETATION POSITIVE; TROPONIN-I 1.01 ng/mL (0.0-0.30)
[2017-11-22 06:21] LABS: BASOPHIL (%) 0.7 % (0-1); BASOPHIL COUNT 0.1 K/uL (0-0.1); EOSINOPHIL (%) 6.8 % (0-5); EOSINOPHIL COUNT 0.8 K/uL (0-0.3); HEMATOCRIT 30.7 % (36.0-46.0); HEMOGLOBIN 9.8 G/DL (11.9-15.5); IMMATURE GRANULOCYTE (%) 0.3 % (0.0-0.7); LYMPHOCYTE (%) 17.1 % (15-42); LYMPHOCYTE COUNT 1.9 K/uL (1.0-2.8); MCH 26.3 PG (29.0-34.0); MCHC 31.9 G/DL (30.0-36.0); MCV 82.3 FL (83-99); MONOCYTE (%) 11.3 % (3-12); MONOCYTE COUNT 1.3 K/uL (0-0.8); NEUTROPHIL (%) 63.8 % (45-76); NEUTROPHIL COUNT 7.1 K/uL (1.8-6.4); PLATELET COUNT 374 K/uL (156-360); RBC DIS.WIDTH-CV 14.6 % (11.8-14.6); RBC DIS.WIDTH-SD 43.2 % (39-53); RED BLOOD COUNT 3.73 M/uL (3.80-5.20); WHITE BLOOD COUNT 11.1 K/uL (4.1-10.2)
[2017-11-22 06:23] LABS: ALBUMIN 3.2 G/DL (3.2-4.8); ALKALINE PHOSPHATASE 137 IU/L (3-129); ALT (GPT) 13 IU/L (3-49); AST (GOT) 20 IU/L (2-34); CHLORIDE 100 MEQ/L (99-109); GFR ESTIMATE (CALCULATED) 32 mL/min/; GLUCOSE 195 mg/dL (70-99); MAGNESIUM 1.6 mg/dl (1.3-2.7); POTASSIUM 5.9 MEQ/L (3.7-5.4); SODIUM 133 MEQ/L (136-147); TOTAL BILIRUBIN 0.3 MG/DL (0.0-1.0); TOTAL PROTEIN 7.2 G/DL (6.4-8.3)
[2017-11-22 06:26] LABS: CREATININE 1.8 MG/DL (0.6-1.3); UREA NITROGEN (BUN) 45 mg/dL (9-23)
[2017-11-22 06:29] LABS: TROP-I INTERPRETATION POSITIVE; TROPONIN-I 1.09 ng/mL (0.0-0.30)
[2017-11-22] MEDS ORDERED: MUPIROCIN22 GM TP (10:54)
[2017-11-22 14:39] LABS: TROPONIN-I 0.85 ng/mL (0.0-0.30)
[2017-11-22 14:40] LABS: TROP-I INTERPRETATION POSITIVE
[2017-11-23 04:49] VITALS: BP 132/60
[2017-11-23 05:44] LABS: HEMATOCRIT 29.9 % (36.0-46.0); HEMOGLOBIN 9.5 G/DL (11.9-15.5); MCHC 31.8 G/DL (30.0-36.0); MCV 81.9 FL (83-99); PLATELET COUNT 356 K/uL (156-360); RBC DIS.WIDTH-CV 14.6 % (11.8-14.6); RBC DIS.WIDTH-SD 43.8 % (39-53); RED BLOOD COUNT 3.65 M/uL (3.80-5.20); WHITE BLOOD COUNT 8.4 K/uL (4.1-10.2)
[2017-11-23 06:21] LABS: CHLORIDE 98 MEQ/L (99-109); GFR ESTIMATE (CALCULATED) 28 mL/min/; GLUCOSE 284 mg/dL (70-99); MAGNESIUM 1.7 mg/dl (1.3-2.7); POTASSIUM 4.8 MEQ/L (3.7-5.4); SODIUM 133 MEQ/L (136-147); UREA NITROGEN (BUN) 51 mg/dL (9-23)
[2017-11-23 06:22] LABS: TROP-I INTERPRETATION INDETERMINATE; TROPONIN-I 0.53 ng/mL (0.0-0.30)
[2017-11-23 09:00] VITALS: BP 122/60
[2017-11-23 13:09] VITALS: BP 106/54
[2017-11-23 16:13] VITALS: BP 109/55
[2017-11-23 19:10] VITALS: BP 139/65
[2017-11-24] VITALS (7 sets, daily range): BP systolic 125–153; BP diastolic 58–70
[2017-11-24 04:37] LABS: BASOPHIL (%) 0.7 % (0-1); BASOPHIL COUNT 0.1 K/uL (0-0.1); EOSINOPHIL (%) 10.2 % (0-5); EOSINOPHIL COUNT 0.7 K/uL (0-0.3); HEMATOCRIT 27.1 % (36.0-46.0); HEMOGLOBIN 8.7 G/DL (11.9-15.5); IMMATURE GRANULOCYTE (%) 0.3 % (0.0-0.7); LYMPHOCYTE (%) 34.4 % (15-42); LYMPHOCYTE COUNT 2.5 K/uL (1.0-2.8); MCH 26.2 PG (29.0-34.0); MCHC 32.1 G/DL (30.0-36.0); MCV 81.6 FL (83-99); MONOCYTE (%) 15.5 % (3-12); MONOCYTE COUNT 1.1 K/uL (0-0.8); NEUTROPHIL (%) 38.9 % (45-76); NEUTROPHIL COUNT 2.8 K/uL (1.8-6.4); PLATELET COUNT 309 K/uL (156-360); RBC DIS.WIDTH-CV 14.5 % (11.8-14.6); RBC DIS.WIDTH-SD 42.8 % (39-53); RED BLOOD COUNT 3.32 M/uL (3.80-5.20); WHITE BLOOD COUNT 7.2 K/uL (4.1-10.2)
[2017-11-24 04:56] LABS: ALBUMIN 2.8 g/dL (3.2-4.8); CHLORIDE 102 mEq/L (99-109); POTASSIUM 4.3 mEq/L (3.7-5.4); SODIUM 135 mEq/L (136-147)
[2017-11-24 04:59] LABS: GLUCOSE 243 mg/dL (70-99); TOTAL PROTEIN 6.3 g/dL (6.4-8.3)
[2017-11-24 05:01] LABS: TOTAL BILIRUBIN 0.1 mg/dL (0.0-1.0)
[2017-11-24 05:02] LABS: ALKALINE PHOSPHATASE 113 IU/L (3-129); CREATININE 2.3 mg/dL (0.6-1.3); GFR ESTIMATE (CALCULATED) 24 mL/min/
[2017-11-24 05:04] LABS: AST (GOT) 13 IU/L (2-34); UREA NITROGEN (BUN) 60 mg/dL (9-23)
[2017-11-24 05:05] LABS: ALT (GPT) 12 IU/L (3-49)
[2017-11-24 14:48] LABS: STOOL OCCULT BLD 1ST SPECIMEN POSITIVE
[2017-11-24 17:08] LABS: UR CREATININE CONCENTRATION 99.6 MG/DL
[2017-11-24 18:07] LABS: APPEARANCE CLOUDY ((CLEAR)); BILIRUBIN NEGATIVE; BLOOD SMALL; COLOR YELLOW ((YELLOW)); GLUCOSE (STRIP) 150; KETONES NEGATIVE; LEUKOCYTES SMALL; NITRITE NEGATIVE; PROTEIN (STRIP) 100; UROBILINOGEN 0.2 MG/DL (0.2-1.0)
[2017-11-24 18:20] LABS: EOSINOPHILS,URINE MODERATE AMOUNT
[2017-11-24 18:22] LABS: WHITE BLOOD CELLS 40-50 /HPF (0-5)
[2017-11-24 18:23] LABS: BACTERIA 1+ /HPF; EPITHELIAL CELLS 1+ /HPF; MUCUS TRACE /LPF
[2017-11-24 18:24] LABS: AMORPHOUS URATES CRYSTALS 1+
[2017-11-25 03:43] VITALS: BP 113/54
[2017-11-25 05:39] LABS: BASOPHIL (%) 0.8 % (0-1); BASOPHIL COUNT 0.1 K/uL (0-0.1); EOSINOPHIL (%) 10.9 % (0-5); EOSINOPHIL COUNT 0.7 K/uL (0-0.3); HEMATOCRIT 27.1 % (36.0-46.0); HEMOGLOBIN 8.5 G/DL (11.9-15.5); IMMATURE GRANULOCYTE (%) 0.2 % (0.0-0.7); LYMPHOCYTE (%) 30.9 % (15-42); MCH 26.2 PG (29.0-34.0); MCHC 31.4 G/DL (30.0-36.0); MCV 83.4 FL (83-99); MONOCYTE (%) 11.6 % (3-12); MONOCYTE COUNT 0.7 K/uL (0-0.8); NEUTROPHIL (%) 45.6 % (45-76); NEUTROPHIL COUNT 2.9 K/uL (1.8-6.4); PLATELET COUNT 320 K/uL (156-360); RBC DIS.WIDTH-CV 14.5 % (11.8-14.6); RBC DIS.WIDTH-SD 43.7 % (39-53); RED BLOOD COUNT 3.25 M/uL (3.80-5.20); WHITE BLOOD COUNT 6.4 K/uL (4.1-10.2)
[2017-11-25 06:00] LABS: ALBUMIN 2.9 G/DL (3.2-4.8); ALT (GPT) 9 IU/L (3-49); AST (GOT) 11 IU/L (2-34); CHLORIDE 105 MEQ/L (99-109); CREATININE 1.4 MG/DL (0.6-1.3); GFR ESTIMATE (CALCULATED) 42 mL/min/; GLUCOSE 212 mg/dL (70-99); PHOSPHORUS 3.4 mg/dL (2.5-4.9); SODIUM 135 MEQ/L (136-147); TOTAL BILIRUBIN 0.2 MG/DL (0.0-1.0); TOTAL PROTEIN 6.3 G/DL (6.4-8.3); UREA NITROGEN (BUN) 40 mg/dL (9-23)
[2017-11-25 06:01] LABS: ALKALINE PHOSPHATASE 99 IU/L (3-129)
[2017-11-25 08:00] VITALS: BP 169/79
[2017-11-25 12:00] VITALS: BP 150/70
[2017-11-25 17:14] VITALS: BP 142/68
[2017-11-25 20:23] VITALS: BP 166/70
[2017-11-25 23:26] VITALS: BP 168/74
[2017-11-26 05:04] LABS: BASOPHIL (%) 0.7 % (0-1); BASOPHIL COUNT 0.1 K/uL (0-0.1); EOSINOPHIL (%) 7.9 % (0-5); EOSINOPHIL COUNT 0.7 K/uL (0-0.3); HEMATOCRIT 29.1 % (36.0-46.0); HEMOGLOBIN 8.9 G/DL (11.9-15.5); IMMATURE GRANULOCYTE (%) 0.3 % (0.0-0.7); LYMPHOCYTE (%) 25.1 % (15-42); LYMPHOCYTE COUNT 2.2 K/uL (1.0-2.8); MCH 25.8 PG (29.0-34.0); MCHC 30.6 G/DL (30.0-36.0); MCV 84.3 FL (83-99); MONOCYTE (%) 9.9 % (3-12); MONOCYTE COUNT 0.9 K/uL (0-0.8); NEUTROPHIL (%) 56.1 % (45-76); NRBC (%) 0.3 /100 WBC (0-0); PLATELET COUNT 344 K/uL (156-360); RBC DIS.WIDTH-CV 14.4 % (11.8-14.6); RBC DIS.WIDTH-SD 44.6 % (39-53); RED BLOOD COUNT 3.45 M/uL (3.80-5.20); WHITE BLOOD COUNT 8.9 K/uL (4.1-10.2)
[2017-11-26 05:16] LABS: CHLORIDE 106 mEq/L (99-109); POTASSIUM 5.1 mEq/L (3.7-5.4); SODIUM 135 mEq/L (136-147)
[2017-11-26 05:18] LABS: GLUCOSE 243 mg/dL (70-99)
[2017-11-26 05:22] LABS: CREATININE 1.4 mg/dL (0.6-1.3); GFR ESTIMATE (CALCULATED) 42 mL/min/; PHOSPHORUS 3.5 mg/dL (2.5-4.9)
[2017-11-26 05:23] LABS: UREA NITROGEN (BUN) 35 mg/dL (9-23)
[2017-11-26 05:37] VITALS: BP 118/55
[2017-11-26 08:43] VITALS: BP 140/80
[2017-11-26 12:00] VITALS: BP 134/74
[2017-11-26 19:50] VITALS: BP 163/92
[2017-11-27 00:40] VITALS: BP 141/68
[2017-11-27 05:14] VITALS: BP 136/60
[2017-11-27 05:46] LABS: HEMATOCRIT 28.8 % (36.0-46.0); HEMOGLOBIN 8.7 G/DL (11.9-15.5); MCH 25.3 PG (29.0-34.0); MCHC 30.2 G/DL (30.0-36.0); MCV 83.7 FL (83-99); RBC DIS.WIDTH-CV 14.6 % (11.8-14.6); RBC DIS.WIDTH-SD 44.2 % (39-53); RED BLOOD COUNT 3.44 M/uL (3.80-5.20); WHITE BLOOD COUNT 8.9 K/uL (4.1-10.2)
[2017-11-27 06:12] LABS: ALBUMIN 3.2 G/DL (3.2-4.8); CHLORIDE 105 MEQ/L (99-109); CREATININE 1.1 MG/DL (0.6-1.3); GFR ESTIMATE (CALCULATED) 56 mL/min/; GLUCOSE 166 mg/dL (70-99); PHOSPHORUS 3.5 mg/dL (2.5-4.9); POTASSIUM 4.5 MEQ/L (3.7-5.4); SODIUM 137 MEQ/L (136-147); UREA NITROGEN (BUN) 36 mg/dL (9-23)
[2017-11-27 06:59] LABS: BASOPHIL (%) 0.6 % (0-1); BASOPHIL COUNT 0.1 K/uL (0-0.1); EOSINOPHIL (%) 6.6 % (0-5); EOSINOPHIL COUNT 0.6 K/uL (0-0.3); IMMATURE GRANULOCYTE (%) 0.4 % (0.0-0.7); LYMPHOCYTE (%) 32.2 % (15-42); LYMPHOCYTE COUNT 2.9 K/uL (1.0-2.8); MONOCYTE COUNT 0.8 K/uL (0-0.8); NEUTROPHIL (%) 51.2 % (45-76); NEUTROPHIL COUNT 4.6 K/uL (1.8-6.4); PLAT.SUFFICIENCY INCREASED; PLATELET COUNT 335 K/uL (156-360)
[2017-11-27 08:34] VITALS: BP 142/60
[2017-11-27 12:48] VITALS: BP 132/68
[2017-11-27 16:40] VITALS: BP 136/80
[2017-11-27 19:30] VITALS: BP 160/90
[2017-11-28] VITALS (10 sets, daily range): BP systolic 122–189; BP diastolic 62–89
[2017-11-28 09:03] LABS: CHLORIDE 108 MEQ/L (99-109); CREATININE 1.2 MG/DL (0.6-1.3); GFR ESTIMATE (CALCULATED) 51 mL/min/; GLUCOSE 205 mg/dL (70-99); PHOSPHORUS 4.2 mg/dL (2.5-4.9); POTASSIUM 4.8 MEQ/L (3.7-5.4); SODIUM 139 MEQ/L (136-147); UREA NITROGEN (BUN) 35 mg/dL (9-23)
[2017-11-28 09:57] LABS: TROP-I INTERPRETATION NEGATIVE; TROPONIN-I 0.03 ng/mL (0.0-0.30)
[2017-11-28] MEDS ORDERED: RANEXA500 MG PO (12:36)
[2017-11-28] MEDS ORDERED: APRESOLINE50 MG PO (12:37)
[2017-11-28] MEDS ORDERED: CARVEDILOL12.5 MG PO (12:37)
[2017-11-28] MEDS ORDERED: BENZONATATE100 MG PO (12:38)
[2017-11-28] MEDS ORDERED: PANTOPRAZOLE SO40 MG PO (12:40)
[2017-11-28] MEDS ORDERED: Zeasorb Antifungal T TP (12:40)
[2017-11-28] MEDS ORDERED: ARGLAES POWDER10 GM TP (12:41)
[2017-11-28] MEDS ORDERED: HYDROMET SYRUP480 ML PO (12:42)
[2017-11-28] MEDS ORDERED: PERCOCET 5/31 TABLET PO (12:42)
[2017-11-29] MEDS ORDERED: ATENOLOL50 MG PO (10:26)
[2017-11-29] MEDS ORDERED: AMITRIPTYLINE H50 MG PO (10:27)
[2017-11-29] MEDS ORDERED: NORVASC5 MG PO (10:28)
[2017-11-29] MEDS ORDERED: LOSARTAN POTASS50 MG PO (10:31)
== END 2017-11-28 15:49 | DRG 871 ==
LOC: EME → EDBD 19:26 → 4EAST 23:38 → EDOF 23:38 → 2EAST 23:38 → ENRESERV 23:40 → 2EAST 11-21 01:13 → ENRESERV 11-21 11:56 → 4EAST 11-21 14:04 → ENRESERV 11-25 15:11 → CANRESERV 11-25 17:36 → ENRESERVTM 11-25 17:36 → ENPENDDIS 11-28 → 4EAST 11-28 15:49
PROVIDERS: Emergency Medicine Emergency Medical Services; Hospitalist; Internal Medicine; Internal Medicine Cardiovascular Disease; Physician Assistant Medical; Student in an Organized Health Care Education/Training Program
DX: A41.9 Sepsis, unspecified organism (principal); I21.A1 Myocardial infarction type 2; J18.0 Bronchopneumonia, unspecified organism; I50.31 Acute diastolic (congestive) heart failure; J04.0 Acute laryngitis; L89.314 Pressure ulcer of right buttock, stage 4; E66.01 Morbid (severe) obesity due to excess calories; E11.65 Type 2 diabetes mellitus with hyperglycemia; I25.10 Atherosclerotic heart disease of native coronary artery without angina pectoris; E11.51 Type 2 diabetes mellitus with diabetic peripheral angiopathy without gangrene; E11.40 Type 2 diabetes mellitus with diabetic neuropathy, unspecified; N17.9 Acute kidney failure, unspecified; N14.1 Nephropathy induced by other drugs, medicaments and biological substances; I11.0 Hypertensive heart disease with heart failure; E87.1 Hypo-osmolality and hyponatremia; K92.2 Gastrointestinal hemorrhage, unspecified; E87.5 Hyperkalemia; E78.2 Mixed hyperlipidemia; I99.8 Other disorder of circulatory system; J98.11 Atelectasis; T36.8X5A Adverse effect of other systemic antibiotics, initial encounter; T50.8X5A Adverse effect of diagnostic agents, initial encounter; Z68.41 Body mass index [BMI] 40.0-44.9, adult; D50.9 Iron deficiency anemia, unspecified; L02.415 Cutaneous abscess of right lower limb; L03.90 Cellulitis, unspecified; R79.1 Abnormal coagulation profile; K21.9 Gastro-esophageal reflux disease without esophagitis; Y95 Nosocomial condition; G62.9 Polyneuropathy, unspecified; H91.92 Unspecified hearing loss, left ear; F32.9 Major depressive disorder, single episode, unspecified; G40.909 Epilepsy, unspecified, not intractable, without status epilepticus; Z95.5 Presence of coronary angioplasty implant and graft; Z79.4 Long term (current) use of insulin; Z22.322 Carrier or suspected carrier of Methicillin resistant Staphylococcus aureus; Z95.1 Presence of aortocoronary bypass graft; Z89.611 Acquired absence of right leg above knee; Z89.519 Acquired absence of unspecified leg below knee; Z86.14 Personal history of Methicillin resistant Staphylococcus aureus infection; Z86.19 Personal history of other infectious and parasitic diseases; Z79.899 Other long term (current) drug therapy; Z79.82 Long term (current) use of aspirin; Z79.02 Long term (current) use of antithrombotics/antiplatelets; Z86.73 Personal history of transient ischemic attack (TIA), and cerebral infarction without residual deficits; Z82.49 Family history of ischemic heart disease and other diseases of the circulatory system; Z80.51 Family history of malignant neoplasm of kidney; I25.2 Old myocardial infarction; Z83.3 Family history of diabetes mellitus
CPT/HCPCS: 71010; 71275; 76770; 80048; 80053; 80069; 81003; 82272; 82436; 82570; 82948; 83605; 83735; 83880; 84100; 84156; 84300; 84484; 84540; 84702; 85025; 85027; 85379; 85610; 87040; 87641; 89190; 93005; 93971; 94640; 94640 76; 94799; 99202; 99281; 99285; J0360; J0692; J0696; J1650; J1815; J1940; J2060; J2270; J3370; J7030

== ENCOUNTER 2017-11-29 03:33 | Inpatient (IN) | payer OTHER ==
[~2017-11-29] VITALS: Ht 157.5 cm; Wt 102.8 kg
[~2017-11-29 03:33] MED LIST changes: +APRESOLINE50 MG PO; +ARGLAES POWDER10 GM TP; +BASAGLAR K100 UNIT/1 SC; +BENZONATATE100 MG PO; +CARVEDILOL12.5 MG PO; +HYDROMET SYRUP480 ML PO; +MUPIROCIN22 GM TP; +PANTOPRAZOLE SO40 MG PO; +RANEXA500 MG PO
[2017-11-29 04:09] LABS: HEMATOCRIT 30.9 % (36.0-46.0); HEMOGLOBIN 9.8 G/DL (11.9-15.5); MCH 26.1 PG (29.0-34.0); MCHC 31.7 G/DL (30.0-36.0); MCV 82.2 FL (83-99); RBC DIS.WIDTH-CV 14.5 % (11.8-14.6); RBC DIS.WIDTH-SD 42.7 % (39-53); RED BLOOD COUNT 3.76 M/uL (3.80-5.20); WHITE BLOOD COUNT 16.6 K/uL (4.1-10.2)
[2017-11-29 04:11] LABS: PLATELET COUNT 449 K/uL (156-360)
[2017-11-29 04:17] LABS: PTT 30.3 SEC (25-37)
[2017-11-29 04:27] LABS: CHLORIDE 106 mEq/L (99-109); POTASSIUM 4.6 mEq/L (3.7-5.4); SODIUM 137 mEq/L (136-147)
[2017-11-29 04:29] LABS: GLUCOSE 300 mg/dL (70-99)
[2017-11-29 04:33] LABS: GFR ESTIMATE (CALCULATED) > 59 mL/min/
[2017-11-29 04:34] LABS: UREA NITROGEN (BUN) 30 mg/dL (9-23)
[2017-11-29 04:38] LABS: TROP-I INTERPRETATION NEGATIVE; TROPONIN-I 0.03 ng/mL (0.0-0.30)
[2017-11-29 10:18] LABS: APPEARANCE CLEAR ((CLEAR)); BILIRUBIN NEGATIVE; BLOOD SMALL; COLOR YELLOW ((YELLOW)); GLUCOSE (STRIP) >=500; KETONES NEGATIVE; LEUKOCYTES TRACE; NITRITE NEGATIVE; PROTEIN (STRIP) >=500; SPECIFIC GRAVITY 1.015 (1.000-1.030); UROBILINOGEN 0.2 MG/DL (0.2-1.0)
[2017-11-29 10:25] LABS: BACTERIA RARE /HPF; EPITHELIAL CELLS RARE /HPF; MUCUS NONE SEEN /LPF; RED BLOOD CELLS 0-5 /HPF (0-5); WHITE BLOOD CELLS 20-30 /HPF (0-5)
[2017-11-29] MEDS ORDERED: ATENOLOL50 MG PO (10:26)
[2017-11-29] MEDS ORDERED: AMITRIPTYLINE H50 MG PO (10:27)
[2017-11-29] MEDS ORDERED: NORVASC5 MG PO (10:28)
[2017-11-29] MEDS ORDERED: LOSARTAN POTASS50 MG PO (10:31)
[2017-11-29 11:13] LABS: TROP-I INTERPRETATION POSITIVE
[2017-11-29 11:14] LABS: TROPONIN-I 0.77 ng/mL (0.0-0.30)
[2017-11-29 19:42] LABS: TROP-I INTERPRETATION POSITIVE
[2017-11-29 19:50] LABS: TROPONIN-I 1.36 ng/mL (0.0-0.30)
[2017-11-29 20:00] VITALS: BP 162/71
[2017-11-29 23:00] VITALS: BP 135/64
[2017-11-30 03:00] VITALS: BP 141/68
[2017-11-30 03:02] LABS: HEMATOCRIT 32.6 % (36.0-46.0); HEMOGLOBIN 10.1 G/DL (11.9-15.5); MCH 25.9 PG (29.0-34.0); MCV 83.6 FL (83-99); PLATELET COUNT 469 K/uL (156-360); RBC DIS.WIDTH-CV 14.8 % (11.8-14.6); RBC DIS.WIDTH-SD 44.7 % (39-53); WHITE BLOOD COUNT 10.8 K/uL (4.1-10.2)
[2017-11-30 03:24] LABS: CHLORIDE 102 mEq/L (99-109); POTASSIUM 4.3 mEq/L (3.7-5.4); SODIUM 137 mEq/L (136-147)
[2017-11-30 03:25] LABS: GLUCOSE 210 mg/dL (70-99)
[2017-11-30 03:29] LABS: CREATININE 1.3 mg/dL (0.6-1.3); GFR ESTIMATE (CALCULATED) 46 mL/min/
[2017-11-30 03:30] LABS: UREA NITROGEN (BUN) 39 mg/dL (9-23)
[2017-11-30 10:10] VITALS: BP 153/64
[2017-11-30 11:45] VITALS: BP 128/70
[2017-11-30 15:58] VITALS: BP 138/62
[2017-11-30 19:15] VITALS: BP 156/66
[2017-12-01] VITALS (7 sets, daily range): BP systolic 105–160; BP diastolic 63–73
[2017-12-01 09:16] LABS: HEMATOCRIT 28.3 % (36.0-46.0); HEMOGLOBIN 8.6 G/DL (11.9-15.5); MCH 25.7 PG (29.0-34.0); MCHC 30.4 G/DL (30.0-36.0); MCV 84.5 FL (83-99); PLATELET COUNT 412 K/uL (156-360); RBC DIS.WIDTH-CV 14.8 % (11.8-14.6); RBC DIS.WIDTH-SD 45.5 % (39-53); RED BLOOD COUNT 3.35 M/uL (3.80-5.20); WHITE BLOOD COUNT 10.2 K/uL (4.1-10.2)
[2017-12-01 09:43] LABS: CHLORIDE 106 MEQ/L (99-109); CREATININE 1.4 MG/DL (0.6-1.3); GFR ESTIMATE (CALCULATED) 42 mL/min/; GLUCOSE 195 mg/dL (70-99); POTASSIUM 4.8 MEQ/L (3.7-5.4); SODIUM 138 MEQ/L (136-147); UREA NITROGEN (BUN) 50 mg/dL (9-23)
[2017-12-01] MEDS ORDERED: AZITHROMYCIN500 M1 PO (12:01)
[2017-12-02 04:12] VITALS: BP 155/68
[2017-12-02 07:35] LABS: CHLORIDE 107 MEQ/L (99-109); CREATININE 1.1 MG/DL (0.6-1.3); GFR ESTIMATE (CALCULATED) 56 mL/min/; GLUCOSE 147 mg/dL (70-99); POTASSIUM 4.9 MEQ/L (3.7-5.4); SODIUM 139 MEQ/L (136-147); UREA NITROGEN (BUN) 49 mg/dL (9-23)
[2017-12-02 08:12] VITALS: BP 150/65
[2017-12-02 10:27] LABS: HEMATOCRIT 26.9 % (36.0-46.0); HEMOGLOBIN 8.4 G/DL (11.9-15.5); MCH 26.3 PG (29.0-34.0); MCHC 31.2 G/DL (30.0-36.0); MCV 84.3 FL (83-99); PLATELET COUNT 384 K/uL (156-360); RBC DIS.WIDTH-SD 46.3 % (39-53); RED BLOOD COUNT 3.19 M/uL (3.80-5.20); WHITE BLOOD COUNT 9.5 K/uL (4.1-10.2)
[2017-12-02 12:30] VITALS: BP 141/64
== END 2017-12-02 12:55 | DRG 280 ==
LOC: EME → EDBD 03:33 → EME 03:33 → EDOF 08:48 → CANRESERV 08:49 → ENRESERV 08:49 → EDOF 11:28 → 4EAST 11:28 → EDOF 11:28 → ENRESERV 11:30 → 4EAST 15:36 → EDOF 15:36 → ENRESERV 16:43 → 4EAST 20:07
PROVIDERS: Emergency Medicine; Internal Medicine
DX: I21.4 Non-ST elevation (NSTEMI) myocardial infarction (principal); I11.0 Hypertensive heart disease with heart failure; I50.43 Acute on chronic combined systolic (congestive) and diastolic (congestive) heart failure; J44.0 Chronic obstructive pulmonary disease with (acute) lower respiratory infection; J20.9 Acute bronchitis, unspecified; N39.0 Urinary tract infection, site not specified; N17.9 Acute kidney failure, unspecified; E11.65 Type 2 diabetes mellitus with hyperglycemia; I25.5 Ischemic cardiomyopathy; I25.10 Atherosclerotic heart disease of native coronary artery without angina pectoris; I25.2 Old myocardial infarction; D63.8 Anemia in other chronic diseases classified elsewhere; E11.40 Type 2 diabetes mellitus with diabetic neuropathy, unspecified; E11.51 Type 2 diabetes mellitus with diabetic peripheral angiopathy without gangrene; K21.9 Gastro-esophageal reflux disease without esophagitis; E78.5 Hyperlipidemia, unspecified; G43.909 Migraine, unspecified, not intractable, without status migrainosus; E66.9 Obesity, unspecified; Z68.41 Body mass index [BMI] 40.0-44.9, adult; F32.9 Major depressive disorder, single episode, unspecified; F41.9 Anxiety disorder, unspecified; F17.200 Nicotine dependence, unspecified, uncomplicated; Z86.73 Personal history of transient ischemic attack (TIA), and cerebral infarction without residual deficits; Z89.611 Acquired absence of right leg above knee; Z95.1 Presence of aortocoronary bypass graft; Z95.5 Presence of coronary angioplasty implant and graft
CPT/HCPCS: 71046; 80048; 81003; 82948; 83605; 83880; 84484; 85027; 85610; 85730; 87040; 87502; 87641; 93005; 93306; 99281; 99285; A6214; J1644; J1650; J1815; J1940; J1956; J3010

== ENCOUNTER 2017-12-04 19:07 | Inpatient (IN) | payer OTHER ==
[~2017-12-04] VITALS: Ht 162.6 cm; Wt 108.2 kg
[~2017-12-04 19:07] MED LIST changes: +ATENOLOL50 MG PO; +AZITHROMYCIN500 M1 PO
[2017-12-04 20:21] LABS: BASOPHIL (%) 0.6 % (0-1); BASOPHIL COUNT 0.1 K/uL (0-0.1); EOSINOPHIL (%) 3.8 % (0-5); EOSINOPHIL COUNT 0.6 K/uL (0-0.3); HEMATOCRIT 31.2 % (36.0-46.0); HEMOGLOBIN 9.8 G/DL (11.9-15.5); IMMATURE GRANULOCYTE (%) 0.4 % (0.0-0.7); LYMPHOCYTE (%) 9.6 % (15-42); LYMPHOCYTE COUNT 1.5 K/uL (1.0-2.8); MCHC 31.4 G/DL (30.0-36.0); MCV 82.8 FL (83-99); MONOCYTE (%) 5.8 % (3-12); MONOCYTE COUNT 0.9 K/uL (0-0.8); NEUTROPHIL (%) 79.8 % (45-76); NEUTROPHIL COUNT 12.6 K/uL (1.8-6.4); PLATELET COUNT 459 K/uL (156-360); RBC DIS.WIDTH-SD 45.1 % (39-53); RED BLOOD COUNT 3.77 M/uL (3.80-5.20); WHITE BLOOD COUNT 15.8 K/uL (4.1-10.2)
[2017-12-04 20:29] LABS: INTER. NORMALIZED RATIO 1.1
[2017-12-04 20:32] LABS: PTT 26.9 SEC (25-37)
[2017-12-04 20:49] LABS: CHLORIDE 105 mEq/L (99-109); POTASSIUM 5.5 mEq/L (3.7-5.4); SODIUM 135 mEq/L (136-147)
[2017-12-04 20:50] LABS: GLUCOSE 389 mg/dL (70-99)
[2017-12-04 20:54] LABS: CREATININE 1.3 mg/dL (0.6-1.3); GFR ESTIMATE (CALCULATED) 46 mL/min/
[2017-12-04 20:55] LABS: UREA NITROGEN (BUN) 38 mg/dL (9-23)
[2017-12-04 21:03] LABS: TROP-I INTERPRETATION NEGATIVE; TROPONIN-I 0.04 ng/mL (0.0-0.30)
[2017-12-04] MEDS ORDERED: BACTROBAN OINTM22 GM TP (23:25)
[2017-12-04] MEDS ORDERED: PROTONIX40 MG PO (23:55)
[2017-12-05 01:51] VITALS: BP 178/79
[2017-12-05 02:41] LABS: ALBUMIN 3.7 g/dL (3.2-4.8)
[2017-12-05 02:44] LABS: TOTAL PROTEIN 8.2 g/dL (6.4-8.3)
[2017-12-05 02:46] LABS: TROP-I INTERPRETATION NEGATIVE; TROPONIN-I 0.27 ng/mL (0.0-0.30)
[2017-12-05 02:46] LABS: TOTAL BILIRUBIN 0.2 mg/dL (0.0-1.0)
[2017-12-05 02:47] LABS: ALKALINE PHOSPHATASE 143 IU/L (3-129)
[2017-12-05 02:49] LABS: AST (GOT) 19 IU/L (2-34)
[2017-12-05 02:50] LABS: ALT (GPT) 15 IU/L (3-49); DIRECT BILIRUBIN 0.1 mg/dL (0.0-0.3)
[2017-12-05 02:51] LABS: LIPASE 27 U/L (1.0-51.0)
[2017-12-05 09:00] VITALS: BP 123/62
[2017-12-05 09:28] LABS: HEMATOCRIT 28.7 % (36.0-46.0); HEMOGLOBIN 8.8 G/DL (11.9-15.5); MCH 25.7 PG (29.0-34.0); MCHC 30.7 G/DL (30.0-36.0); MCV 83.9 FL (83-99); PLATELET COUNT 410 K/uL (156-360); RBC DIS.WIDTH-SD 46.2 % (39-53); RED BLOOD COUNT 3.42 M/uL (3.80-5.20); WHITE BLOOD COUNT 8.9 K/uL (4.1-10.2)
[2017-12-05 10:06] LABS: APPEARANCE SL.HAZY ((CLEAR)); BILIRUBIN NEGATIVE; BLOOD SMALL; COLOR YELLOW ((YELLOW)); GLUCOSE (STRIP) >=500; KETONES NEGATIVE; LEUKOCYTES MODERATE; NITRITE NEGATIVE; PROTEIN (STRIP) 100; SPECIFIC GRAVITY 1.035 (1.000-1.030); UROBILINOGEN 0.2 MG/DL (0.2-1.0)
[2017-12-05 10:09] LABS: CHLORIDE 104 MEQ/L (99-109); CREATININE 1.1 MG/DL (0.6-1.3); GFR ESTIMATE (CALCULATED) 56 mL/min/; POTASSIUM 5.1 MEQ/L (3.7-5.4); SODIUM 136 MEQ/L (136-147); UREA NITROGEN (BUN) 40 mg/dL (9-23)
[2017-12-05 10:12] LABS: TROP-I INTERPRETATION POSITIVE; TROPONIN-I 7.33 ng/mL (0.0-0.30)
[2017-12-05 10:14] LABS: GLUCOSE 175 mg/dL (70-99)
[2017-12-05 10:17] LABS: BACTERIA RARE /HPF; EPITHELIAL CELLS RARE /HPF; MUCUS TRACE /LPF; WHITE BLOOD CELLS 30-40 /HPF (0-5)
[2017-12-05 12:05] LABS: INTER. NORMALIZED RATIO 1.1
[2017-12-05 12:08] LABS: PTT 26.8 SEC (25-37)
[2017-12-05 12:21] VITALS: BP 123/60
[2017-12-05 15:13] VITALS: BP 123/59
[2017-12-05 18:27] LABS: INTER. NORMALIZED RATIO 1.2
[2017-12-05 18:31] LABS: PTT 100.4 SEC (25-37)
[2017-12-05 21:00] VITALS: BP 115/58
[2017-12-05 22:37] VITALS: BP 133/61
[2017-12-06 04:05] VITALS: BP 106/58
[2017-12-06 07:32] LABS: HEMATOCRIT 25.4 % (36.0-46.0); HEMOGLOBIN 7.8 G/DL (11.9-15.5); MCH 25.4 PG (29.0-34.0); MCHC 30.7 G/DL (30.0-36.0); MCV 82.7 FL (83-99); PLATELET COUNT 365 K/uL (156-360); RBC DIS.WIDTH-CV 15.2 % (11.8-14.6); RED BLOOD COUNT 3.07 M/uL (3.80-5.20)
[2017-12-06 08:04] VITALS: BP 97/5
[2017-12-06 08:04] LABS: CHLORIDE 106 MEQ/L (99-109); GFR ESTIMATE (CALCULATED) 30 mL/min/; GLUCOSE 183 mg/dL (70-99); POTASSIUM 5.3 MEQ/L (3.7-5.4); SODIUM 136 MEQ/L (136-147); UREA NITROGEN (BUN) 58 mg/dL (9-23)
[2017-12-06 08:07] LABS: CREATININE 1.9 MG/DL (0.6-1.3); TROP-I INTERPRETATION POSITIVE; TROPONIN-I 6.72 ng/mL (0.0-0.30)
[2017-12-06 10:29] VITALS: BP 98/46
[2017-12-06 11:17] VITALS: BP 125/76
[2017-12-06 14:13] LABS: HEMATOCRIT 26.4 % (36.0-46.0); HEMOGLOBIN 8.1 G/DL (11.9-15.5); MCH 25.4 PG (29.0-34.0); MCHC 30.7 G/DL (30.0-36.0); MCV 82.8 FL (83-99); PLATELET COUNT 361 K/uL (156-360); RBC DIS.WIDTH-CV 15.1 % (11.8-14.6); RBC DIS.WIDTH-SD 45.8 % (39-53); RED BLOOD COUNT 3.19 M/uL (3.80-5.20); WHITE BLOOD COUNT 10.1 K/uL (4.1-10.2)
[2017-12-06 14:17] LABS: INTER. NORMALIZED RATIO 1.1
[2017-12-06 14:19] LABS: PTT 63.5 SEC (25-37)
[2017-12-06 16:51] VITALS: BP 135/62
[2017-12-06 20:18] VITALS: BP 125/59
[2017-12-06 20:43] LABS: PTT 48.6 SEC (25-37)
[2017-12-07] VITALS: BP 108/55
[2017-12-07 03:02] LABS: HEMATOCRIT 25.5 % (36.0-46.0); MCH 26.1 PG (29.0-34.0); MCHC 31.4 G/DL (30.0-36.0); MCV 83.1 FL (83-99); PLATELET COUNT 322 K/uL (156-360); RBC DIS.WIDTH-CV 15.1 % (11.8-14.6); RBC DIS.WIDTH-SD 45.5 % (39-53); RED BLOOD COUNT 3.07 M/uL (3.80-5.20); WHITE BLOOD COUNT 9.1 K/uL (4.1-10.2)
[2017-12-07 03:19] VITALS: BP 140/71
[2017-12-07 03:24] LABS: ALBUMIN 3.2 g/dL (3.2-4.8); CHLORIDE 109 mEq/L (99-109); POTASSIUM 5.3 mEq/L (3.7-5.4); SODIUM 133 mEq/L (136-147)
[2017-12-07 03:30] LABS: CREATININE 1.6 mg/dL (0.6-1.3); GFR ESTIMATE (CALCULATED) 36 mL/min/; PHOSPHORUS 4.1 mg/dL (2.5-4.9)
[2017-12-07 03:31] LABS: UREA NITROGEN (BUN) 61 mg/dL (9-23)
[2017-12-07 03:46] LABS: GLUCOSE 277 mg/dL (70-99)
[2017-12-07 08:00] VITALS: BP 152/60
[2017-12-07 12:00] VITALS: BP 111/57
[2017-12-07 16:47] VITALS: BP 116/65
[2017-12-07 18:54] VITALS: BP 118/61
[2017-12-08 00:07] VITALS: BP 135/65
[2017-12-08 04:57] VITALS: BP 126/62
[2017-12-08 06:03] LABS: WHITE BLOOD COUNT 10.3 K/uL (4.1-10.2)
[2017-12-08 06:04] LABS: BASOPHIL (%) 0.7 % (0-1); BASOPHIL COUNT 0.1 K/uL (0-0.1); EOSINOPHIL COUNT 0.6 K/uL (0-0.3); HEMATOCRIT 27.1 % (36.0-46.0); HEMOGLOBIN 8.3 G/DL (11.9-15.5); IMMATURE GRANULOCYTE (%) 0.3 % (0.0-0.7); LYMPHOCYTE (%) 20.9 % (15-42); LYMPHOCYTE COUNT 2.1 K/uL (1.0-2.8); MCH 25.9 PG (29.0-34.0); MCHC 30.6 G/DL (30.0-36.0); MCV 84.7 FL (83-99); MONOCYTE (%) 9.1 % (3-12); MONOCYTE COUNT 0.9 K/uL (0-0.8); NEUTROPHIL COUNT 6.5 K/uL (1.8-6.4); PLATELET COUNT 335 K/uL (156-360); RBC DIS.WIDTH-CV 15.1 % (11.8-14.6); RBC DIS.WIDTH-SD 46.2 % (39-53)
[2017-12-08 06:40] LABS: ALBUMIN 3.1 G/DL (3.2-4.8); CHLORIDE 110 MEQ/L (99-109); CREATININE 1.2 MG/DL (0.6-1.3); GFR ESTIMATE (CALCULATED) 51 mL/min/; GLUCOSE 212 mg/dL (70-99); POTASSIUM 4.8 MEQ/L (3.7-5.4); SODIUM 137 MEQ/L (136-147); UREA NITROGEN (BUN) 40 mg/dL (9-23)
[2017-12-08 09:20] VITALS: BP 134/63
[2017-12-08 16:45] VITALS: BP 146/63
[2017-12-08 18:48] VITALS: BP 169/72
[2017-12-08 23:45] VITALS: BP 138/64
[2017-12-09 04:50] VITALS: BP 132/60
[2017-12-09 05:55] LABS: BASOPHIL (%) 0.7 % (0-1); BASOPHIL COUNT 0.1 K/uL (0-0.1); EOSINOPHIL (%) 6.1 % (0-5); EOSINOPHIL COUNT 0.5 K/uL (0-0.3); HEMATOCRIT 25.3 % (36.0-46.0); HEMOGLOBIN 7.8 G/DL (11.9-15.5); IMMATURE GRANULOCYTE (%) 0.4 % (0.0-0.7); LYMPHOCYTE (%) 18.5 % (15-42); LYMPHOCYTE COUNT 1.6 K/uL (1.0-2.8); MCH 25.7 PG (29.0-34.0); MCHC 30.8 G/DL (30.0-36.0); MCV 83.5 FL (83-99); MONOCYTE (%) 11.5 % (3-12); NEUTROPHIL (%) 62.8 % (45-76); NEUTROPHIL COUNT 5.3 K/uL (1.8-6.4); PLATELET COUNT 349 K/uL (156-360); RBC DIS.WIDTH-CV 15.4 % (11.8-14.6); RBC DIS.WIDTH-SD 46.4 % (39-53); RED BLOOD COUNT 3.03 M/uL (3.80-5.20); WHITE BLOOD COUNT 8.4 K/uL (4.1-10.2)
[2017-12-09 06:16] LABS: CHLORIDE 105 MEQ/L (99-109); CREATININE 1.1 MG/DL (0.6-1.3); GFR ESTIMATE (CALCULATED) 56 mL/min/; GLUCOSE 224 mg/dL (70-99); PHOSPHORUS 3.8 mg/dL (2.5-4.9); SODIUM 136 MEQ/L (136-147); UREA NITROGEN (BUN) 34 mg/dL (9-23)
[2017-12-09 06:19] LABS: ALKALINE PHOSPHATASE 99 IU/L (3-129); ALT (GPT) 9 IU/L (3-49); AST (GOT) 9 IU/L (2-34); CHLORIDE 106 MEQ/L (99-109); CREATININE 1.2 MG/DL (0.6-1.3); GFR ESTIMATE (CALCULATED) 51 mL/min/; GLUCOSE 221 mg/dL (70-99); POTASSIUM 4.6 MEQ/L (3.7-5.4); SODIUM 137 MEQ/L (136-147); TOTAL BILIRUBIN 0.2 MG/DL (0.0-1.0); TOTAL PROTEIN 6.7 G/DL (6.4-8.3); UREA NITROGEN (BUN) 33 mg/dL (9-23)
[2017-12-09 08:00] VITALS: BP 158/71
[2017-12-09 11:02] LABS: IMM.RETIC FRACTION 17.7 % (3-19); RETIC HGB EQUIVALENT 28.7 (28-36); RETICULOCYTE COUNT 1.7 % (0.5-1.8)
[2017-12-09 12:00] VITALS: BP 140/72
[2017-12-09 12:35] LABS: IRON 26 MCG/DL (35-150); TRANSFERRIN (TIBC) 212.8 mg/dL (215-380); TRANSFERRIN SATUR. 12 % (20-55)
[2017-12-09 12:48] LABS: FERRITIN 19 NG/ML (10-291)
[2017-12-09 13:21] LABS: FOLIC ACID (FOLATE) 16.3 NG/ML (5.0-22.0)
[2017-12-09 21:27] VITALS: BP 134/63
[2017-12-10] VITALS (7 sets, daily range): BP systolic 125–179; BP diastolic 65–86
[2017-12-10 06:04] LABS: HEMATOCRIT 26.5 % (36.0-46.0); HEMOGLOBIN 8.1 G/DL (11.9-15.5); MCV 82.3 FL (83-99)
[2017-12-11 05:28] VITALS: BP 129/62
[2017-12-11 07:30] VITALS: BP 137/63
[2017-12-11 11:53] VITALS: BP 134/63
[2017-12-11 17:05] VITALS: BP 138/65
[2017-12-11 20:34] VITALS: BP 152/69
[2017-12-12] VITALS (16 sets, daily range): BP systolic 107–185; BP diastolic 55–89
[2017-12-12 06:27] LABS: HEMATOCRIT 25.8 % (36.0-46.0); HEMOGLOBIN 7.8 G/DL (11.9-15.5); MCH 25.2 PG (29.0-34.0); MCHC 30.2 G/DL (30.0-36.0); MCV 83.5 FL (83-99); PLATELET COUNT 342 K/uL (156-360); RBC DIS.WIDTH-CV 15.2 % (11.8-14.6); RBC DIS.WIDTH-SD 45.8 % (39-53); RED BLOOD COUNT 3.09 M/uL (3.80-5.20); WHITE BLOOD COUNT 7.8 K/uL (4.1-10.2)
[2017-12-12 06:48] LABS: CHLORIDE 107 MEQ/L (99-109); CREATININE 1.1 MG/DL (0.6-1.3); GFR ESTIMATE (CALCULATED) 56 mL/min/; GLUCOSE 233 mg/dL (70-99); POTASSIUM 4.9 MEQ/L (3.7-5.4); SODIUM 138 MEQ/L (136-147); UREA NITROGEN (BUN) 39 mg/dL (9-23)
[2017-12-13 04:19] VITALS: BP 135/64
[2017-12-13 05:40] LABS: HEMATOCRIT 32.9 % (36.0-46.0); HEMOGLOBIN 10.4 G/DL (11.9-15.5); MCH 25.9 PG (29.0-34.0); MCHC 31.6 G/DL (30.0-36.0); PLATELET COUNT 361 K/uL (156-360); RBC DIS.WIDTH-CV 15.1 % (11.8-14.6); RBC DIS.WIDTH-SD 45.6 % (39-53); RED BLOOD COUNT 4.01 M/uL (3.80-5.20); WHITE BLOOD COUNT 9.3 K/uL (4.1-10.2)
[2017-12-13 06:05] LABS: CHLORIDE 107 MEQ/L (99-109); CREATININE 1.1 MG/DL (0.6-1.3); GFR ESTIMATE (CALCULATED) 56 mL/min/; GLUCOSE 173 mg/dL (70-99); POTASSIUM 5.2 MEQ/L (3.7-5.4); SODIUM 138 MEQ/L (136-147); UREA NITROGEN (BUN) 38 mg/dL (9-23)
[2017-12-13 08:00] VITALS: BP 166/89
[2017-12-13 12:11] VITALS: BP 152/91
[2017-12-13 16:24] VITALS: BP 167/94
[2017-12-13 21:15] VITALS: BP 170/85
[2017-12-14 01:11] VITALS: BP 168/77
[2017-12-14 03:41] VITALS: BP 155/80
[2017-12-14 06:09] LABS: HEMATOCRIT 32.4 % (36.0-46.0); HEMOGLOBIN 10.2 G/DL (11.9-15.5); MCH 26.2 PG (29.0-34.0); MCHC 31.5 G/DL (30.0-36.0); MCV 83.3 FL (83-99); PLATELET COUNT 352 K/uL (156-360); RBC DIS.WIDTH-CV 15.4 % (11.8-14.6); RBC DIS.WIDTH-SD 46.6 % (39-53); RED BLOOD COUNT 3.89 M/uL (3.80-5.20); WHITE BLOOD COUNT 8.7 K/uL (4.1-10.2)
[2017-12-14 07:30] VITALS: BP 206/89
== END 2017-12-14 08:16 | disposition short-term general hospital (02) | DRG 280 ==
LOC: EME 19:07 → EDOF 22:57 → 5WEST 22:57 → ENRESERV 23:00 → 5WEST 12-05 00:56 → 4EAST 12-05 10:55 → ENRESERV 12-05 11:00 → 5WEST 12-05 11:41 → ENRESERV 12-05 14:47 → 4EAST 12-05 22:27
PROVIDERS: Emergency Medicine; Hospitalist; Internal Medicine; Internal Medicine Cardiovascular Disease; Nurse Practitioner Family
PROC: 30233N1 Transfusion of Nonautologous Red Blood Cells into Peripheral Vein, Percutaneous Approach (ICD-10-PCS; principal; 2017-12-12)
DX: I21.4 Non-ST elevation (NSTEMI) myocardial infarction (principal); I50.23 Acute on chronic systolic (congestive) heart failure; N17.9 Acute kidney failure, unspecified; E11.65 Type 2 diabetes mellitus with hyperglycemia; J44.9 Chronic obstructive pulmonary disease, unspecified; D50.9 Iron deficiency anemia, unspecified; E11.52 Type 2 diabetes mellitus with diabetic peripheral angiopathy with gangrene; T82.855A Stenosis of coronary artery stent, initial encounter; I25.10 Atherosclerotic heart disease of native coronary artery without angina pectoris; I11.0 Hypertensive heart disease with heart failure; E78.5 Hyperlipidemia, unspecified; K80.20 Calculus of gallbladder without cholecystitis without obstruction; E11.42 Type 2 diabetes mellitus with diabetic polyneuropathy; I25.5 Ischemic cardiomyopathy; K82.8 Other specified diseases of gallbladder; L89.319 Pressure ulcer of right buttock, unspecified stage; E87.5 Hyperkalemia; T50.8X5A Adverse effect of diagnostic agents, initial encounter; N14.1 Nephropathy induced by other drugs, medicaments and biological substances; D72.829 Elevated white blood cell count, unspecified; G89.29 Other chronic pain; E66.01 Morbid (severe) obesity due to excess calories; K21.9 Gastro-esophageal reflux disease without esophagitis; E87.1 Hypo-osmolality and hyponatremia; E87.2 Acidosis; F32.9 Major depressive disorder, single episode, unspecified; G40.909 Epilepsy, unspecified, not intractable, without status epilepticus; H91.92 Unspecified hearing loss, left ear; F41.9 Anxiety disorder, unspecified; Z86.19 Personal history of other infectious and parasitic diseases; Z86.73 Personal history of transient ischemic attack (TIA), and cerebral infarction without residual deficits; Z95.5 Presence of coronary angioplasty implant and graft; Z95.1 Presence of aortocoronary bypass graft; Z89.611 Acquired absence of right leg above knee; Z86.14 Personal history of Methicillin resistant Staphylococcus aureus infection; Z89.511 Acquired absence of right leg below knee; Z83.3 Family history of diabetes mellitus; Z82.49 Family history of ischemic heart disease and other diseases of the circulatory system; Z80.51 Family history of malignant neoplasm of kidney; I25.2 Old myocardial infarction; Z68.39 Body mass index [BMI] 39.0-39.9, adult; Z79.4 Long term (current) use of insulin; Z79.899 Other long term (current) drug therapy
CPT/HCPCS: 71045; 71275; 80048; 80053; 80069; 80076; 81003; 82607; 82728; 82746; 82948; 83540; 83605; 83690; 83880; 84466; 84484; 85014; 85018; 85025; 85027; 85046; 85610; 85730; 86850; 86900; 86901; 86920; 87040; 93005; 99202; 99281; 99285; G0378; J1200; J1335; J1644; J1815; J1940; J2060; J2270; J2765; J7030; J7050; P9016